=== PATIENT | female | born 1970 | race African-American/Black ===

== ENCOUNTER 2018-11-09 18:05 | Inpatient (IN) | payer OTHER ==
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
[2018-11-09] MEDS ORDERED: diphenhydrAMINE HCL 50 MG CAPSULE PO PRN (19:55)
[2018-11-09] MEDS ORDERED: MAG HYDROX/AL HYDROX/SIMETH 30 ML UNIT-DOSE CUP PO PRN (19:56)
[2018-11-09] MEDS ORDERED: MAGNESIUM CITRATE 300 ML BOTTLE PO PRN (19:56)
[2018-11-09] MEDS ORDERED: ACETAMINOPHEN 325 MG TABLET (FP) PO PRN (19:56)
[2018-11-09] MEDS ORDERED: hydrOXYzine PAMOATE 25 MG CAPSULE (FP) PO PRN (19:56)
[2018-11-09] MEDS ORDERED: MAGNESIUM HYDROX 2400MG/30ML ORAL SUSPENSION 30 ML CUP PO PRN (19:56)
[2018-11-09] MEDS ORDERED: chlordiazePOXIDE HCL 25 MG CAPSULE PO PRN (19:56)
[2018-11-09] MEDS ORDERED: BISMUTH SUBSALICYLATE 524 MG/30 ML UD PO PRN (19:56)
[2018-11-09] MEDS ORDERED: MENTHOL/PHENOL 1 EACH UD MM PRN (19:56)
[2018-11-09] MEDS ORDERED: cloNIDine HCL 0.1 MG TABLET PO ONE (20:30)
[2018-11-09] MEDS: IBUPROFEN 400 MG TABLET (FP) PO PRN (21:13)
[2018-11-09] MEDS ORDERED: hydrOXYzine PAMOATE 50 MG CAPSULE (FP) PO PRN (21:30)
[2018-11-09] MEDS: LIDOCAINE PATCH REMOVAL MC SCH (21:40)
[2018-11-09] MEDS ORDERED: MELATONIN 5 MG TABLETS PO PRN (22:00)
[2018-11-09] MEDS: chlordiazePOXIDE HCL 25 MG CAPSULE PO SCH (22:46)
[2018-11-09] MEDS: THIAMINE HCL 100 MG TABLET (FP) PO SCH (22:49)
[2018-11-10] MEDS: METHOCARBAMOL 500 MG TABLET PO PRN ×2 (03:05→22:35)
[2018-11-10] MEDS: chlordiazePOXIDE HCL 25 MG CAPSULE PO SCH ×4 (05:52→22:34)
[2018-11-10] MEDS: PRENATAL VITAMINS W/ FOLIC ACID TABLET (FP) PO SCH (10:21)
[2018-11-10] MEDS: LIDOCAINE 5% TOPICAL PATCH TP SCH (10:21)
[2018-11-10] MEDS: NICOTINE POLACRILEX 2 MG GUM BUC PRN (10:21)
[2018-11-10] MEDS: NICOTINE 14 MG/24 HOURS TOPICAL PATCH TD SCH (10:21)
[2018-11-10 10:26] LABS: HEMATOCRIT 35.7 % (32.4-45.2); HEMOGLOBIN 12.5 GM/dL (10.7-15.3); MCH 31.5 pg (25.7-33.7); MCHC 34.9 g/dl (32.0-36.0); MEAN CELL VOLUME 90.2 fl (80-96); MEAN PLT VOLUME 8.7 fl (7.5-11.1); PLATELET COUNT 242 K/MM3 (134-434); RBC 3.95 M/mm3 (3.60-5.2); RDW 13.6 % (11.6-15.6); WHITE BLOOD COUNT 5.9 K/mm3 (4.0-10.0)
[2018-11-10 10:34] LABS: ALK PHOS 54 U/L (45-117); ANION GAP 8 MMOL/L (8-16); BILIRUBIN,TOTAL 0.9 mg/dL (0.2-1); BLOOD UREA NITROGEN 16 mg/dL (7-18); CALCIUM 8.3 mg/dL (8.5-10.1); CHLORIDE 103 mmol/L (98-107); CO2 28 mmol/L (21-32); CREATININE 0.8 mg/dL (0.55-1.3); GLUCOSE,RANDOM 109 mg/dL (74-106); POTASSIUM 3.8 mmol/L (3.5-5.1); SGOT/AST 31 U/L (15-37); SGPT/ALT 52 U/L (13-61); SODIUM 139 mmol/L (136-145)
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
--- NOTE | 2018-11-10 12:25 | EKG ---
Test Reason : Blood Pressure : / mmHG Vent. Rate : 090 BPM Atrial Rate : 090 BPM P-R Int : 128 ms QRS Dur : 092 ms QT Int : 376 ms P-R-T Axes : 068 055 051 degrees QTc Int : 459 ms NORMAL SINUS RHYTHM POSSIBLE LEFT ATRIAL ENLARGEMENT BORDERLINE ECG NO PREVIOUS ECGS AVAILABLE Confirmed by SOCRATES CASTANEDA, LISSETH ([id number]) on 11/10/2018 12:25:19 PM Referred By: Confirmed By:LISSETH CROWELL MD
--- NOTE | 2018-11-10 13:03 | PN ---
S CIWA - CIWA Score Nausea/Vomitin-No Nausea/No Vomiting Muscle Tremors: 3 Anxiety: 3 Agitation: 3 Paroxysmal Sweats: 3 Orientation: 0-Oriented Tacttile Disturbances: 0-None Auditory Disturbances: 0-None Visual Disturbances: 0-None Headache: 0-None Present CIWA-Ar Total Score: 12 S Progress Note (SOAP) Subjective: sweats chronic body aches interrupted sleep shakes Objective: 11/10/18 13:02 Vital Signs Temperature 97.8 F 11/10/18 09:40 Pulse Rate 111 H 11/10/18 09:40 Respiratory Rate 18 11/10/18 09:40 Blood Pressure 129/85 11/10/18 09:40 O2 Sat by Pulse Oximetry (%) Laboratory Tests 11/10/18 11/10/18 11/10/18 07:00 07:00 07:00 WBC 5.9 RBC 3.95 Hgb 12.5 Hct 35.7 MCV 90.2 MCH 31.5 MCHC 34.9 RDW 13.6 Plt Count 242 MPV 8.7 Sodium 139 Potassium 3.8 Chloride 103 Carbon Dioxide 28 Anion Gap 8 BUN 16 Creatinine 0.8 Creat Clearance w eGFR 76.56 Random Glucose 109 H Calcium 8.3 L Total Bilirubin 0.9 AST 31 ALT 52 Alkaline Phosphatase 54 Total Protein 7.0 Albumin 4.0 RPR Titer Nonreactive labs noted aaox3 ambulating with some difficulty will order wheelchair for assistance during her stay only no acute distress Assessment: 11/10/18 13:03 withdrawal sx Plan: continue detox increase fluids wheelchair ordered for assistance
[2018-11-10] MEDS: CITALOPRAM HYDROBROMIDE 20 MG TABLET (FP) PO SCH (14:14)
[2018-11-10] MEDS: IBUPROFEN 400 MG TABLET (FP) PO PRN (17:26)
[2018-11-10] MEDS: QUEtiapine FUMARATE 200 MG TABLET PO SCH (22:35)
[2018-11-10] MEDS: LIDOCAINE PATCH REMOVAL MC SCH (22:35)
[2018-11-10] MEDS: THIAMINE HCL 100 MG TABLET (FP) PO SCH (22:35)
[2018-11-11] MEDS: chlordiazePOXIDE HCL 25 MG CAPSULE PO SCH ×3 (05:18→16:48)
[2018-11-11] MEDS: CITALOPRAM HYDROBROMIDE 20 MG TABLET (FP) PO SCH (10:14)
[2018-11-11] MEDS: PRENATAL VITAMINS W/ FOLIC ACID TABLET (FP) PO SCH (10:14)
[2018-11-11] MEDS: LIDOCAINE 5% TOPICAL PATCH TP SCH (10:15)
[2018-11-11] MEDS: NICOTINE 14 MG/24 HOURS TOPICAL PATCH TD SCH (10:15)
[2018-11-11] MEDS: METHOCARBAMOL 500 MG TABLET PO PRN (16:48)
--- NOTE | 2018-11-11 17:50 | PN ---
S CIWA - CIWA Score Nausea/Vomitin-Mild Nausea/No Vomiting Muscle Tremors: 3 Anxiety: 3 Agitation: 2 Paroxysmal Sweats: 3 Orientation: 0-Oriented Tacttile Disturbances: 0-None Auditory Disturbances: 0-None Visual Disturbances: 0-None Headache: 0-None Present CIWA-Ar Total Score: 12 BHS Progress Note (SOAP) Subjective: sweats tingling in b/l hands Objective: 11/11/18 17:49 A & ox 3 in wheelchair for ambulation slight tremors noted no acute distress Vital Signs Temperature 99 F 11/11/18 17:40 Pulse Rate 77 11/11/18 17:40 Respiratory Rate 18 11/11/18 17:40 Blood Pressure 119/67 11/11/18 17:40 O2 Sat by Pulse Oximetry (%) Assessment: 11/11/18 17:49 withdrawal sx Plan: continue detox
[2018-11-11] MEDS: THIAMINE HCL 100 MG TABLET (FP) PO SCH (21:51)
[2018-11-11] MEDS: LIDOCAINE PATCH REMOVAL MC SCH (21:51)
[2018-11-11] MEDS: QUEtiapine FUMARATE 200 MG TABLET PO SCH (21:53)
[2018-11-11] MEDS: chlordiazePOXIDE HCL 10 MG CAPSULE PO SCH (22:05)
[2018-11-11] MEDS ORDERED: chlordiazePOXIDE HCL 10 MG CAPSULE PO PRN (23:00)
[2018-11-12] MEDS: chlordiazePOXIDE HCL 10 MG CAPSULE PO SCH ×4 (05:29→22:30)
[2018-11-12] MEDS: PRENATAL VITAMINS W/ FOLIC ACID TABLET (FP) PO SCH (10:09)
[2018-11-12] MEDS: NICOTINE 14 MG/24 HOURS TOPICAL PATCH TD SCH (10:09)
[2018-11-12] MEDS: CITALOPRAM HYDROBROMIDE 20 MG TABLET (FP) PO SCH (10:09)
[2018-11-12] MEDS: IBUPROFEN 400 MG TABLET (FP) PO PRN ×2 (10:11→17:45)
[2018-11-12] MEDS: METHOCARBAMOL 500 MG TABLET PO PRN ×2 (10:12→22:31)
[2018-11-12] MEDS: LIDOCAINE 5% TOPICAL PATCH TP SCH (11:37)
[2018-11-12] MEDS ORDERED: cloNIDine HCL 0.1 MG TABLET PO ONE (11:56)
[2018-11-12] MEDS ORDERED: hydrOXYzine PAMOATE 50 MG CAPSULE (FP) PO ONE (11:59)
[2018-11-12] MEDS: HYDROCORTISONE 0.5% TOPICAL CREAM 30 GM TUBE TP SCH ×2 (13:15→23:04)
--- NOTE | 2018-11-12 16:49 | PN ---
S Progress Note (SOAP) Subjective: Tingling in hands, itching, sweating, body ache Objective: 11/12/18 16:45 Last Vital Signs Temp Pulse Resp BP Pulse Ox 98.6 F 75 18 122/76 11/12/18 09:31 11/12/18 09:31 11/12/18 09:31 11/12/18 09:31 Laboratory Tests 11/10/18 11/10/18 11/10/18 07:00 07:00 07:00 WBC 5.9 RBC 3.95 Hgb 12.5 Hct 35.7 MCV 90.2 MCH 31.5 MCHC 34.9 RDW 13.6 Plt Count 242 MPV 8.7 Sodium 139 Potassium 3.8 Chloride 103 Carbon Dioxide 28 Anion Gap 8 BUN 16 Creatinine 0.8 Creat Clearance w eGFR 76.56 Random Glucose 109 H Calcium 8.3 L Total Bilirubin 0.9 AST 31 ALT 52 Alkaline Phosphatase 54 Total Protein 7.0 Albumin 4.0 Urine Color Urine Appearance Urine pH Ur Specific [place] Urine Protein Urine Glucose (UA) Urine Ketones Urine Blood Urine Nitrite Urine Bilirubin Urine Urobilinogen Ur Leukocyte Esterase Urine WBC (Auto) Urine RBC (Auto) Urine Casts (Auto) U Pathogenic Cast Auto U Epithel Cells (Auto) U Sm Round Cell (Auto) Urine Crystals (Auto) Urine Bacteria (Auto) Urine Yeast (Auto) RPR Titer Nonreactive 11/10/18 11:50 WBC RBC Hgb Hct MCV MCH MCHC RDW Plt Count MPV Sodium Potassium Chloride Carbon Dioxide Anion Gap BUN Creatinine Creat Clearance w eGFR Random Glucose Calcium Total Bilirubin AST ALT Alkaline Phosphatase Total Protein Albumin Urine Color Cancelled Urine Appearance Cancelled Urine pH Cancelled Ur Specific [place] Cancelled Urine Protein Cancelled Urine Glucose (UA) Cancelled Urine Ketones Cancelled Urine Blood Cancelled Urine Nitrite Cancelled Urine Bilirubin Cancelled Urine Urobilinogen Cancelled Ur Leukocyte Esterase Cancelled Urine WBC (Auto) Cancelled Urine RBC (Auto) Cancelled Urine Casts (Auto) Cancelled U Pathogenic Cast Auto Cancelled U Epithel Cells (Auto) Cancelled U Sm Round Cell (Auto) Cancelled Urine Crystals (Auto) Cancelled Urine Bacteria (Auto) Cancelled Urine Yeast (Auto) Cancelled RPR Titer Labs reviewed Assessment: 11/12/18 16:46 Withdrawal symptoms Plan: Continue detox Encouraged PO water hydration Ordered for clonidine and vistaril x 1 dose for tactile hallucination and then continue clonidine and vistaril prn Hydrocortisone cream bid for itching
[2018-11-12] MEDS ORDERED: cloNIDine HCL 0.1 MG TABLET PO PRN (21:00)
[2018-11-12] MEDS: QUEtiapine FUMARATE 200 MG TABLET PO SCH (22:30)
[2018-11-12] MEDS: THIAMINE HCL 100 MG TABLET (FP) PO SCH (22:30)
[2018-11-12] MEDS: LIDOCAINE PATCH REMOVAL MC SCH (23:04)
[2018-11-13] MEDS: ACETAMINOPHEN 325 MG TABLET (FP) PO PRN ×2 (06:03→12:31)
[2018-11-13] MEDS ORDERED: AZITHROMYCIN 250 MG TABLET PO ONE (07:11)
--- NOTE | 2018-11-13 07:15 | PN ---
[facility] Progress Note Note: SEEN FOR FEVER. CLIENT COMPALINS OF GENERALIZED BODY ACHES, SORE THROAT AND PRODUCTIVE COUGH WITH YELLOW EXPECTORANT SINCE ADMISSION. SHE ALSO COMPLAINS OF WEAKNESS. SHE REPORTS SHE IS HOMELESS. DENIES C.P., +INTERMITTENT SOB, +CHILLS, +FEVER. Vital Signs - 24 hr 11/12/18 11/12/18 11/13/18 17:56 22:00 00:30 Temperature 98.6 F 97.9 F Pulse Rate 82 98 H Respiratory 18 20 18 Rate Blood Pressure 126/64 149/79 11/13/18 11/13/18 11/13/18 03:30 06:00 06:05 Temperature 100.8 F H 102.2 F H Pulse Rate 97 H Respiratory 18 18 Rate Blood Pressure 122/78 11/13/18 09:29 Temperature 100.9 F H Pulse Rate 93 H Respiratory 20 Rate Blood Pressure 119/70 Laboratory Tests 11/10/18 11/10/18 11/10/18 07:00 07:00 07:00 WBC 5.9 RBC 3.95 Hgb 12.5 Hct 35.7 MCV 90.2 MCH 31.5 MCHC 34.9 RDW 13.6 Plt Count 242 MPV 8.7 Sodium 139 Potassium 3.8 Chloride 103 Carbon Dioxide 28 Anion Gap 8 BUN 16 Creatinine 0.8 Creat Clearance w eGFR 76.56 Random Glucose 109 H Calcium 8.3 L Total Bilirubin 0.9 AST 31 ALT 52 Alkaline Phosphatase 54 Total Protein 7.0 Albumin 4.0 Urine Color Urine Appearance Urine pH Ur Specific [place] Urine Protein Urine Glucose (UA) Urine Ketones Urine Blood Urine Nitrite Urine Bilirubin Urine Urobilinogen Ur Leukocyte Esterase Urine WBC (Auto) Urine RBC (Auto) Urine Casts (Auto) U Pathogenic Cast Auto U Epithel Cells (Auto) U Sm Round Cell (Auto) Urine Crystals (Auto) Urine Bacteria (Auto) Urine Yeast (Auto) RPR Titer Nonreactive 11/10/18 11:50 WBC RBC Hgb Hct MCV MCH MCHC RDW Plt Count MPV Sodium Potassium Chloride Carbon Dioxide Anion Gap BUN Creatinine Creat Clearance w eGFR Random Glucose Calcium Total Bilirubin AST ALT Alkaline Phosphatase Total Protein Albumin Urine Color Cancelled Urine Appearance Cancelled Urine pH Cancelled Ur Specific [place] Cancelled Urine Protein Cancelled Urine Glucose (UA) Cancelled Urine Ketones Cancelled Urine Blood Cancelled Urine Nitrite Cancelled Urine Bilirubin Cancelled Urine Urobilinogen Cancelled Ur Leukocyte Esterase Cancelled Urine WBC (Auto) Cancelled Urine RBC (Auto) Cancelled Urine Casts (Auto) Cancelled U Pathogenic Cast Auto Cancelled U Epithel Cells (Auto) Cancelled U Sm Round Cell (Auto) Cancelled Urine Crystals (Auto) Cancelled Urine Bacteria (Auto) Cancelled Urine Yeast (Auto) Cancelled RPR Titer SEEN LYING IN BED-ILL APPEARING. A/O X3 HEENT-PERRLA, EOMI ,MMM NO REDNESS OR EXUDATES NOTED TONSILS APPEAR NL NECK-SUPPLE + LAD CV- TACHY LUNGS- MILD DIFFUSE COARSE BREATH SOUNDS [id number] 95% SKIN- WARM AND MOIST, INTACT A- FEVER, GIVEN CLIENT IS HOMELESS WILL TREAT PROPHYLACTICALLY FOR CAP VS PHARYNGITIS P- Z- PACK PO HYDRATION TYLENOL/ MOTRIN FOR PAIN FEVER CONT TO MONITOR CLINICALLY FOR WORSENING SX'S WILL REORDER UA NOT SURE WHY INITIAL ORDER WAS CXL
[2018-11-13] MEDS ORDERED: ALBUTEROL SO4 8 GM HFA INHALER IH PRN (10:17)
[2018-11-13] MEDS: CITALOPRAM HYDROBROMIDE 20 MG TABLET (FP) PO SCH (10:27)
[2018-11-13] MEDS: LIDOCAINE 5% TOPICAL PATCH TP SCH (10:28)
[2018-11-13] MEDS: PRENATAL VITAMINS W/ FOLIC ACID TABLET (FP) PO SCH (10:28)
[2018-11-13] MEDS: NICOTINE POLACRILEX 2 MG GUM BUC PRN (10:28)
[2018-11-13] MEDS: chlordiazePOXIDE HCL 10 MG CAPSULE PO SCH ×2 (10:29→22:31)
[2018-11-13] MEDS: HYDROCORTISONE 0.5% TOPICAL CREAM 30 GM TUBE TP SCH ×2 (10:30→21:43)
[2018-11-13] MEDS: NICOTINE 14 MG/24 HOURS TOPICAL PATCH TD SCH (10:31)
[2018-11-13] MEDS ORDERED: ALBUTEROL SO4 8 GM HFA INHALER IH ONE (10:47)
--- NOTE | 2018-11-13 10:57 | PN ---
S Progress Note (SOAP) Subjective: cough sweats feverish Objective: 11/13/18 10:55 Vital Signs Temperature 100.9 F H 11/13/18 09:29 Pulse Rate 93 H 11/13/18 09:29 Respiratory Rate 20 11/13/18 09:29 Blood Pressure 119/70 11/13/18 09:29 O2 Sat by Pulse Oximetry (%) lungs assessed; +ronchi noted ABX ordered albuterol inh ordered tylenol prn Assessment: 11/13/18 10:56 mild withdrawal sx Plan: continue detox increase fluids continue with abx and albuterol treatment as ordered tylenol prn d/c in am
[2018-11-13] MEDS ORDERED: guaiFENesin 200 MG/10 ML 10 ML UNIT-DOSE CUPS PO PRN (10:58)
[2018-11-13] MEDS: IBUPROFEN 400 MG TABLET (FP) PO PRN (18:03)
--- NOTE | 2018-11-13 18:46 | PN ---
S Progress Note Note: 11/13/18 CXR = Bibasilar Infiltrates. Vital Signs 11/13/18 11/13/18 14:02 17:38 Temperature 102.4 F H 101.8 F H Pulse Rate 98 H 96 H Respiratory 20 20 Rate Blood Pressure 134/70 133/73 Plan: Ibuprofen or Tylenol for temp > 100.6 Albuterol neb q4h x 3 doses then prn Increase oral water : 2 pitchers dialy Guaifenesin q4 h x 2 days Continue Zithromax Vital signs q4h w/ O2 sat.
[2018-11-13] MEDS: guaiFENesin 200 MG/10 ML 10 ML UNIT-DOSE CUPS PO SCH ×2 (20:58→21:41)
[2018-11-13] MEDS: ALBUTEROL SO4 0.083% IH SOL 2.5 MG/3 ML VIAL.NEB. NEB SCH (21:11)
[2018-11-13] MEDS: THIAMINE HCL 100 MG TABLET (FP) PO SCH (21:40)
[2018-11-13] MEDS: QUEtiapine FUMARATE 200 MG TABLET PO SCH (21:40)
[2018-11-13] MEDS: LIDOCAINE PATCH REMOVAL MC SCH (21:43)
[2018-11-14] MEDS: guaiFENesin 200 MG/10 ML 10 ML UNIT-DOSE CUPS PO SCH ×2 (04:41→06:42)
[2018-11-14] MEDS: ALBUTEROL SO4 0.083% IH SOL 2.5 MG/3 ML VIAL.NEB. NEB SCH (04:41)
[2018-11-14] MEDS: IBUPROFEN 400 MG TABLET (FP) PO PRN (05:48)
[2018-11-14] MEDS ORDERED: AZITHROMYCIN 250 MG TABLET PO SCH (07:00)
[2018-11-14 08:02] VITALS: BP 140/93; PULSE 95; TEMP 100.4
--- NOTE | 2018-11-14 09:42 | PN ---
[facility] Progress Note Note: pt last temp 100.4. pt appears weak and sickly. pt states she doesn't feel good. Pt has been ordered ABX, tylenol however pt temp continue to stay high. Report given to Dr. Harding from [place] ED for evaluation. Pt has completed detox and discharged today. If she is cleared form ED; pt may return to continue her aftercare treatment in rehab (if bed is available). Pt has been made aware.
--- NOTE | 2018-11-14 09:47 | DS ---
[facility] Detox Discharge Summary Admission Date: 11/09/18 Discharge Date: 11/14/18 - History Present History: Alcohol Dependence, Cannabis Dependence, Cocaine Dependence - Physical Exam Results Vital Signs: Vital Signs Temperature 100.4 F H 11/14/18 08:02 Pulse Rate 95 H 11/14/18 08:02 Respiratory Rate 20 11/14/18 08:02 Blood Pressure 140/93 11/14/18 08:02 O2 Sat by Pulse Oximetry (%) - Treatment Hospital Course: Detox Protocol Followed, Detoxed Safely, Responded well, Discharged Condition Good, Rehab Referral Accepted - Medication Discharge Medications: Ambulatory Orders Chlorpromazine [Thorazine -] 50 mg PO BID PRN 11/09/18 Citalopram Hydrobromide [Celexa -] 20 mg PO DAILY 11/09/18 Diphenhydramine [Benadryl -] 50 mg PO TID PRN 11/09/18 Haloperidol [Haldol -] 5 mg PO TID PRN 11/09/18 Quetiapine Fumarate [Seroquel] 100 tab PO HS 11/09/18 Trazodone HCl 150 mg PO HS 11/09/18 hydrOXYzine HCL 50 mg PO TID PRN 11/09/18 - Diagnosis (1) Alcohol dependence with uncomplicated withdrawal Status: Chronic (2) Cannabis dependence Status: Chronic (3) Cocaine dependence Status: Chronic Qualifiers: Substance use status: uncomplicated Qualified Code(s): F14.20 - Cocaine dependence, uncomplicated (4) Substance induced mood disorder Status: Acute (5) Substance-induced sleep disorder Status: Acute (6) Arthritis Status: Chronic (7) Bipolar II disorder Status: Chronic (8) GERD (gastroesophageal reflux disease) Status: Chronic (9) Nicotine dependence Status: Chronic Qualifiers: Nicotine product type: cigarettes Substance use status: uncomplicated Qualified Code(s): F17.210 - Nicotine dependence, cigarettes, uncomplicated (10) Osteoarthritis of both knees Status: Chronic Qualifiers: Osteoarthritis type: unspecified Qualified Code(s): M17.0 - Bilateral primary osteoarthritis of knee (11) Use of cane as ambulatory aid Status: Chronic (12) Psychiatric disorder Status: Suspected - AMA Did Patient Leave Against Medical Advice: No (sent to ED for eval; then rehab)
== END 2018-11-14 09:21 | disposition short-term general hospital (02) | DRG 774 ==
LOC: YASAS 18:05 → Y6N 20:26
PROVIDERS: ADMIT Surgery; ATTEND Surgery
PROC: HZ2ZZZZ Detoxification Services for Substance Abuse Treatment (ICD-10-PCS; principal; 2018-11-09)
DX: F10.230 Alcohol dependence with withdrawal, uncomplicated (principal); F14.20 Cocaine dependence, uncomplicated; F12.20 Cannabis dependence, uncomplicated; F17.213 Nicotine dependence, cigarettes, with withdrawal; F19.24 Other psychoactive substance dependence with psychoactive substance-induced mood disorder; F19.282 Other psychoactive substance dependence with psychoactive substance-induced sleep disorder; F31.81 Bipolar II disorder; F99 Mental disorder, not otherwise specified; F41.9 Anxiety disorder, unspecified; K21.9 Gastro-esophageal reflux disease without esophagitis; M12.9 Arthropathy, unspecified; M17.0 Bilateral primary osteoarthritis of knee; R26.89 Other abnormalities of gait and mobility; Z99.89 Dependence on other enabling machines and devices; Z91.5 Personal history of self-harm; Z59.0 Homelessness
CPT/HCPCS: 36415; 71046-TC-FY; 80053; 81003; 85027; 86593; 93005; 93010; 94640; J0735

== ENCOUNTER 2018-11-14 09:35 | Inpatient (IN) | payer OTHER ==
--- NOTE | 2018-11-14 10:19 | PDOC ---
History of Present Illness - General Chief Complaint: SIRS, Suspected/Possible Stated Complaint: DIFFICULTY BREATHING Time Seen by Provider: 11/14/18 10:01 History Source: Patient Exam Limitations: No Limitations - History of Present Illness Initial Comments: Pt is a 47 yo F, with PMH of polysubstance use (intranasal cocaine, nicotine, THC, alcohol), bipolar, and SBO, who is presenting via EMS from [facility] rehab with complaints of non-productive cough, frontal head pressure, fever (Tmax 101) , and malaise x4 days. Pt was admitted to the detox facility on 11/10, and consumed a large quantity of alcohol (drinking 1/2 gallon vodka/day) on 11/09 to the point that she had LOC. Her symptoms started 2 days later on 11/11, and was treated at [facility] with 250 mg PO azithromycin for 2 days for b/l lower lobe infiltrates on x-ray. Pt was sent to the ER today for continued fever (100.4), although her last dose of tylenol as at noon yesterday, and her last dose of motrin was at 530 this AM. Pt is supposed to be discharged to rehab today from [facility], as she finished her detox today. Pt denies any headache, vision changes, syncope, chest pain, palpitations, SOB, nausea/vomiting, abdominal pain, urinary symptoms, diarrhea/constipation, or leg swelling. Social: Pt smokes 1/2 ppd, substance use as above. Pt denies any recent travel or sick contacts. Surgical: no relevant history. Family: no relevant history. 11/14/18 11:39 Past History - Travel Traveled outside of the country in the last 30 days: No Close contact w/someone who was outside of country & ill: No - Past Medical History Allergies/Adverse Reactions: Allergies Allergy/AdvReac Type Severity Reaction Status Date / Time No Known Allergies Allergy Verified 11/14/18 10:00 Home Medications: Ambulatory Orders Chlorpromazine [Thorazine -] 50 mg PO BID PRN 11/09/18 Citalopram Hydrobromide [Celexa -] 20 mg PO DAILY 11/09/18 Diphenhydramine [Benadryl -] 50 mg PO TID PRN 11/09/18 Haloperidol [Haldol -] 5 mg PO TID PRN 11/09/18 Quetiapine Fumarate [Seroquel] 100 tab PO HS 11/09/18 Trazodone HCl 150 mg PO HS 11/09/18 hydrOXYzine HCL 50 mg PO TID PRN 11/09/18 Anemia: No Asthma: No Cancer: No Cardiac Disorders: No CVA: No COPD: No CHF: No Dementia: No Diabetes: No GI Disorders: Yes (GERD ) Disorders: No HTN: No Hypercholesterolemia: No Kidney Stones: No Liver Disease: No Seizures: No Thyroid Disease: No - Surgical History Abdominal Surgery: Yes (bowel obstruction sx 2003) Appendectomy: No Cardiac Surgery: No Cholecystectomy: No Lung Surgery: No Neurologic Surgery: No Orthopedic Surgery: No - Reproductive History PID: No - Suicide/Smoking/Psychosocial Hx Smoking History: Current every day smoker Have you smoked in the past 12 months: Yes Number of Cigarettes Smoked Daily: 10 If you are a former smoker, when did you quit?: 15 years ago Information on smoking cessation initiated: No 'Breaking Loose' booklet given: 11/09/18 Hx Alcohol Use: Yes Drug/Substance Use Hx: Yes Substance Use Type: Alcohol, Cocaine, Marijuana Hx Substance Use Treatment: Yes (detox [facility] 2011) Review of Systems - Review of Systems Able to Perform ROS?: Yes Is the patient limited Macedonian proficient: No Constitutional: Yes: Chills, Fever, Malaise, Weight Stable. No: Diaphoresis, Loss of Appetite, Night Sweats, Weakness HEENTM: Yes: Nose Congestion. No: Eye Pain, Blurred Vision, Double Vision, Throat Pain, Throat Swelling, Difficulty Swallowing Respiratory: Yes: Cough. No: Orthopnea, Shortness of Breath, Wheezing, Productive cough, Hemoptysis Cardiac (ROS): Yes: Chest Tightness. No: Chest Pain, Edema, Irregular Heart Rate, Lightheadedness, Palpitations, Syncope ABD/GI: No: Constipated, Diarrhea, Nausea, Poor Appetite, Poor Fluid Intake, Vomiting : No: Burning, Dysuria, Pain, Urgency Musculoskeletal: No: Back Pain, Joint Pain, Muscle Weakness Integumentary: No: Rash Neurological: No: Headache, Numbness, Paresthesia, Weakness Psychiatric: No: Sleep Pattern Change, Change in Appetite Endocrine: No: Increased Urine, Change in Weight Hematologic/Lymphatic: No: Anemia, Blood Clots, Easy Bleeding, Easy Bruising All Other Systems: Reviewed and Negative *Physical Exam - Vital Signs Last Vital Signs Temp Pulse Resp BP Pulse Ox 98.6 F 89 18 117/67 96 11/14/18 10:01 11/14/18 10:01 11/14/18 10:01 11/14/18 10:01 11/14/18 10:01 - Physical Exam Comments: Vitals stable, pt afebrile on presentation. Pt in NAD, normal body habitus. PE showed pt alert and oriented. 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 Head normocephalic, atraumatic. Eyes PERRLA, EOMI. Oropharynx without erythema or exudates, no LAD b/l. No nasal congestion, hearing intact. Clear heart sounds, S1/S2, no JVD, b/l pedal edema, or heart murmur. Lung sounds diminished at b/l posterior bases with mild crackles. Poor inspiratory effort and pt tachypneic after long sentences. No respiratory distress, wheezes, or accessory muscle use. No abdominal or CVA tenderness to palpation, no rebound, no guarding. Abdomen soft, non-distended, and with normoactive bowel sounds. Skin without jaundice or rash. 11/14/18 11:13 ED Treatment Course - LABORATORY CBC & Chemistry Diagram: 11/14/18 11:08 11/14/18 11:08 Medical Decision Making - Medical Decision Making Pt was seen at bedside, also will be seen by attending Dr. Parks. Pt presenting via EMS from [facility] rehab with complaints of non-productive cough , frontal head pressure, fever (Tmax 101), and malaise x4 days. Pt was admitted to the detox facility on 11/10, and consumed a large quantity of alcohol ( drinking 1/2 gallon vodka/day) on 11/09 to the point that she had LOC. Her symptoms started 2 days later on 11/11, and was treated at [facility] with 250 mg PO azithromycin for 2 days for b/l lower lobe infiltrates on x-ray. Pt was sent to the ER today for continued fever (100.4), although her last dose of tylenol as at noon yesterday, and her last dose of motrin was at 530 this AM. Pt is supposed to be discharged to rehab today from [facility], as she finished her detox today. Pt denies any headache, vision changes, syncope, chest pain, palpitations, SOB, nausea/vomiting, abdominal pain, urinary symptoms, diarrhea/constipation, or leg swelling. Considering worsening pneumonia (need for increased coverage, aspiration), vs overlying viral URI/pneumonia. Less concern for non-infectious causes (acute HF , ACS) as pt has had recent fever and cough. Ordered work-up including CBC, CMP, rapid influenza, serum , blood cultures, repeat chest x-ray PA and lateral. Provided albuterol nebulizer, 650 mg PO tylenol, and 1 L IV NS for improvement of likely dehydration (orthostasis with position changes this AM) and fever. Will continue to reassess pt and monitor for symptomatic improvement. 11/14/18 10:45 11/14/18 11:26 CBC: WBC 3.8 -- pt not immunocompromised other than alcohol use CMP WNL Serum test negative Influenza A positive Chest x-ray showed progressive infiltrate in the R lung base with new atelectasis in the L midlung field. Pt started on 500 mg IV azithromycin, 1.25 g IV vanc, and 3.375 g IV zosyn for hospital acquired pneumonia (pt was in [facility] psych unit less than a month ago). Pt admitted to hospitalist team (Dr. Campoverde). Pt in isolation room, pending bed upstairs. 11/14/18 12:58 *DC/Admit/Observation/Transfer Diagnosis at time of Disposition: Influenza A, Alcohol dependence with uncomplicated withdrawal, Bipolar II disorder Pneumonia Qualifiers: Pneumonia type: due to unspecified organism Laterality: bilateral Lung location : lower lobe of lung Qualified Code(s): J18.1 - Lobar pneumonia, unspecified organism Cocaine dependence Qualifiers: Substance use status: uncomplicated Qualified Code(s): F14.20 - Cocaine dependence, uncomplicated Nicotine dependence Qualifiers: Nicotine product type: cigarettes Substance use status: uncomplicated Qualified Code(s): F17.210 - Nicotine dependence, cigarettes, uncomplicated - Discharge Dispostion Condition at time of disposition: Stable Decision to Admit order: Yes - Referrals - Patient Instructions - Post Discharge Activity
[2018-11-14] MEDS ORDERED: ACETAMINOPHEN 325 MG TABLET (FP) PO ONE (10:45)
[2018-11-14] MEDS ORDERED: ACETAMINOPHEN 325 MG TABLET (FP) ONE ×2 (10:51→17:31)
[2018-11-14] MEDS ORDERED: SODIUM CHLORIDE 1,000 ML IV STA (10:51)
[2018-11-14] MEDS ORDERED: ALBUTEROL SO4 0.083% IH SOL 2.5 MG/3 ML VIAL.NEB. NEB ONE ×2 (10:52→11:09)
--- NOTE | 2018-11-14 11:03 | PDOC ---
Attending Attestation - Resident Resident Name: Neida Zimmerman - ED Attending Attestation I have performed the following: I have examined & evaluated the patient, The case was reviewed & discussed with the resident, I agree w/resident's findings & plan - HPI HPI: 11/14/18 11:02 47y/o F h/o F h/o polysubstance abuse just completed detox at [facility] today, admitted on 11/09 after etoh binge which ended in her almost passing out. Diagnosed with b/l basilar pna on 11/10 and started on oral azithro, sent now after detox for medical evaluation as she continues to complain of dyspnea, b/l lung pain, and generalized weakness. tmax 102.4 on 11/13, 100.4 last night - Physicial Exam PE: 11/14/18 11:04 Vitals are within normal limits, O2 sat 96% on room air, afebrile here Alert, conversant, no acute distress, hemodynamically stable Bilateral decreased breath sounds and crackles, no wheezing, no accessory muscle use No edema or calf tenderness - Medical Decision Making 11/14/18 11:05 47-year-old female with extensive smoking history but no diagnosis of asthma or COPD or CHF, polysubstance abuse with recent alcohol binge and near syncope now status post detox and diagnosed with bibasilar infiltrate being treated possibly incompletely with oral azithromycin given persistent symptoms. No evidence of sepsis at this time, rule out progression or persistent pneumonia, possibly aspiration source. Labs including blood cultures Repeat chest x-ray, EKG Consider expanding antibiotic coverage Likely admission Heart Score/ECG Review #1 ECG reviewed & interpreted by me at: 13:56 General ECG Interpretation: Sinus Rhythm, Normal Rate (77), Normal Intervals ( qtc 459), No acute ischemic changes
[2018-11-14 11:22] LABS: BASO % 0.7 % (0-2.0); EOS % 2.8 % (0-4.5); HEMATOCRIT 32.7 % (32.4-45.2); HEMOGLOBIN 11.5 GM/dL (10.7-15.3); LYMPH % 14.5 % (8-40); MCHC 35.2 g/dl (32.0-36.0); MEAN CELL VOLUME 90.9 fl (80-96); MEAN PLT VOLUME 8.1 fl (7.5-11.1); MONO % 5.9 % (3.8-10.2); NEUT % 76.1 % (42.8-82.8); PLATELET COUNT 187 K/MM3 (134-434); RDW 13.2 % (11.6-15.6); WHITE BLOOD COUNT 3.8 K/mm3 (4.0-10.0)
[2018-11-14 11:47] LABS: ALK PHOS 41 U/L (45-117); ANION GAP 6 MMOL/L (8-16); BILIRUBIN,TOTAL 0.2 mg/dL (0.2-1); BLOOD UREA NITROGEN 10 mg/dL (7-18); CALCIUM 7.7 mg/dL (8.5-10.1); CHLORIDE 106 mmol/L (98-107); CO2 28 mmol/L (21-32); CREATININE 0.6 mg/dL (0.55-1.3); GLUCOSE,RANDOM 108 mg/dL (74-106); POTASSIUM 4.1 mmol/L (3.5-5.1); SGOT/AST 38 U/L (15-37); SGPT/ALT 38 U/L (13-61); SODIUM 140 mmol/L (136-145)
[2018-11-14] MEDS ORDERED: PIPERACILLIN/TAZOB 3.375 GM 3.375 GM in DEXTROSE 5%-WATER - 50 ML IVPB ONE (12:40)
[2018-11-14] MEDS ORDERED: AZITHROMYCIN IVPB 500 MG in DEXTROSE 5%-WATER - 250 ML IVPB ONE (12:40)
[2018-11-14] MEDS ORDERED: VANCOMYCIN 1,250 MG in DEXTROSE 5%-WATER - 250 ML IVPB ONE (12:40)
[2018-11-14] MEDS ORDERED: ALBUTEROL SO4 0.083% IH SOL 2.5 MG/3 ML VIAL.NEB. NEB PRN (13:27)
[2018-11-14] MEDS ORDERED: PIPERACILLIN/TAZOB 3.375 GM 3.375 GM/50 ML BAG IVPB ONE (13:27)
[2018-11-14] MEDS ORDERED: AZITHROMYCIN IVPB 500 MG/250 ML BAG IVPB ONE (13:27)
[2018-11-14] MEDS ORDERED: ONDANSETRON 4 MG/2 ML VIAL IVPUSH PRN (13:27)
--- NOTE | 2018-11-14 13:27 | HP ---
CHIEF COMPLAINT: Fever HISTORY OF PRESENT ILLNESS: This is a 47 year old woman who comes to the ED from [facility] for evaluation of fevers. The patient reports she was admitted to [facility] for inpatient psychiatric treatment on October 12. At the time, she was suicidal. She improved and was discharged on November 07. After discharge, she began drinking and on November 09, she went to [facility] for detox which she completed today. Yesterday, she complained of cough with yellow sputum, body aches, and sore throat. She had fever up to 102.4. Chest x-ray showed bibasilar infiltrates. She was started on Zithromax. This morning, she had a temp of 100.4 , and she continued to feel sick, so she was sent to the ED for evaluation. She denies SOB, CP, palpitations, abdominal pain, nausea, vomiting, diarrhea. PAST MEDICAL HISTORY Bipolar disorder Osteoarthritis Polysubstance abuse PAST SURGICAL HISTORY Surgery for bowel obstruction Social History: Smokin/2 PPD x 34 years Alcohol: "Too much" Drugs: Marijuana, cocaine Recent Travel: No Family History: Non-contributory Allergies No Known Allergies Allergy (Verified 11/14/18 10:00) Home Medications Medication Instructions Recorded Chlorpromazine [Thorazine -] 50 mg PO BID PRN 11/09/18 Citalopram Hydrobromide [Celexa -] 20 mg PO DAILY 11/09/18 Diphenhydramine [Benadryl -] 50 mg PO TID PRN 11/09/18 Haloperidol [Haldol -] 5 mg PO TID PRN 11/09/18 Quetiapine Fumarate [Seroquel] 100 tab PO HS 11/09/18 Trazodone HCl 150 mg PO HS 11/09/18 hydrOXYzine HCL 50 mg PO TID PRN 11/09/18 REVIEW OF SYSTEMS CONSTITUTIONAL: Present: fever, chills, malaise. Absent: diaphoresis, generalized weakness, loss of appetite, weight change HEENT: Absent: rhinorrhea, nasal congestion, throat pain, throat swelling, difficulty swallowing, mouth swelling, ear pain, eye pain, visual changes CARDIOVASCULAR: Absent: chest pain, syncope, palpitations, lightheadedness, peripheral edema RESPIRATORY: Present: cough. Absent: shortness of breath, dyspnea with exertion , orthopnea, wheezing, stridor, hemoptysis GASTROINTESTINAL: Absent: abdominal pain, abdominal distension, nausea, vomiting , diarrhea, constipation, melena, hematochezia GENITOURINARY: Absent: dysuria, frequency, urgency, hesitancy, hematuria, flank pain MUSCULOSKELETAL: Present: myalgias, arthralgias. Absent: arthralgia, joint swelling, back pain, neck pain SKIN: Absent: rash, itching, pallor HEMATOLOGIC/IMMUNOLOGIC: Absent: easy bleeding, easy bruising, lymphadenopathy, frequent infections ENDOCRINE: Absent: unexplained weight gain, unexplained weight loss, heat intolerance, cold intolerance NEUROLOGIC: Absent: headache, focal weakness, paresthesias, dizziness, unsteady gait, seizure, mental status changes, bladder or bowel incontinence PSYCHIATRIC: Present: anxiety. Absent: depression, suicidal or homicidal ideation, hallucinations. PHYSICAL EXAMINATION Vital Signs - 24 hr 11/14/18 10:01 Temperature 98.6 F Pulse Rate 89 Respiratory 18 Rate Blood Pressure 117/67 O2 Sat by Pulse 96 Oximetry (%) GENERAL: Awake, alert, and fully oriented, in no acute distress. HEAD: Normal with no signs of trauma. EYES: Pupils equal, round and reactive to light, extraocular movements intact, sclerae anicteric, conjunctivae clear. EARS, NOSE, THROAT: Ears normal, nares patent, oropharynx clear without exudates. Moist mucous membranes. NECK: Normal range of motion, supple without lymphadenopathy, JVD, or masses. LUNGS: Breath sounds equal, Crackles at both bases, left mid lung. No accessory muscle use. HEART: Regular rate and rhythm, normal S1 and S2 without murmur, rub or gallop. ABDOMEN: Obese, soft, nontender, not distended, normoactive bowel sounds, no guarding, no rebound, no masses. No hepatomegaly or splenomegaly. MUSCULOSKELETAL: Normal range of motion at all joints. No bony deformities or tenderness. No CVA tenderness. UPPER EXTREMITIES: 2+ pulses, warm, well-perfused. No cyanosis. No clubbing. No peripheral edema. LOWER EXTREMITIES: 2+ pulses, warm, well-perfused. No calf tenderness. No peripheral edema. NEUROLOGICAL: Cranial nerves II-XII intact. Normal speech. Gait not observed. PSYCHIATRIC: Cooperative. Good eye contact. Appropriate mood and affect. SKIN: Warm, dry, normal turgor, no rashes or lesions noted, normal capillary refill. Laboratory Results - last 24 hr 11/14/18 11/14/18 11/14/18 11:08 11:08 11:08 WBC 3.8 L RBC 3.60 Hgb 11.5 Hct 32.7 MCV 90.9 MCH 32.0 MCHC 35.2 RDW 13.2 Plt Count 187 D MPV 8.1 Absolute Neuts (auto) 2.9 Neutrophils % 76.1 Lymphocytes % 14.5 Monocytes % 5.9 Eosinophils % 2.8 Basophils % 0.7 Nucleated RBC % 0 Sodium 140 Potassium 4.1 Chloride 106 Carbon Dioxide 28 Anion Gap 6 L BUN 10 Creatinine 0.6 Creat Clearance w eGFR 106.70 Random Glucose 108 H Calcium 7.7 L Total Bilirubin 0.2 AST 38 H ALT 38 Alkaline Phosphatase 41 L Total Protein 6.0 L Albumin 3.0 L Serum , Qual Negative Influenza A (Rapid) Influenza B (Rapid) 11/14/18 11:19 WBC RBC Hgb Hct MCV MCH MCHC RDW Plt Count MPV Absolute Neuts (auto) Neutrophils % Lymphocytes % Monocytes % Eosinophils % Basophils % Nucleated RBC % Sodium Potassium Chloride Carbon Dioxide Anion Gap BUN Creatinine Creat Clearance w eGFR Random Glucose Calcium Total Bilirubin AST ALT Alkaline Phosphatase Total Protein Albumin Serum , Qual Influenza A (Rapid) Positive A Influenza B (Rapid) Negative ASSESSMENT/PLAN: This is a 47 year old woman with a history of bipolar disorder, polysubstance abuse, OA, recent psychiatric admission who presented to the ED from [facility] because of fever, cough, chills, and myalgias. 1. Sepsis (WBC 3.8, HR 95) secondary to pneumonia, influenza A - Zosyn, vancomycin, Zithromax given in ER - Start ceftriaxone, Zithromax, Tamiflu - Oxygen to maintain saturation >90% - Albuterol nebulizer as needed - Check urine Legionella, pneumococcus Ag - Sputum culture 2. Bipolar disorder - Continue Celexa, Seroquel, Trazodone - Continue Hydroxyzine as needed for anxiety - Continue Haldol as needed for agitation 3. Alcohol dependence - Completed detox - Interested in rehab once she is ready for discharge 4. Nicotine dependence - Start nicotine replacement - patient requesting nicotine gum 5. Obesity with BMI 31.1 Visit type - Emergency Visit Emergency Visit: Yes ED Registration Date: 11/14/18 Care time: The patient presented to the Emergency Department on the above date and was hospitalized for further evaluation of their emergent condition. - New Patient This patient is new to me today: Yes Date on this admission: 11/14/18 - Critical Care Critical Care patient: No
[2018-11-14] MEDS ORDERED: NICOTINE POLACRILEX 2 MG GUM BUC PRN (13:31)
[2018-11-14] MEDS ORDERED: HALOPERIDOL 5 MG TABLET (FP) PO PRN (13:32)
[2018-11-14] MEDS: SODIUM CHLORIDE 1,000 ML IV SCH (13:39)
[2018-11-14 14:04] LABS: EPI CELLS 3.6 /HPF (0-5); PH,URINE 6.5 (5.0-8.0); URINE APPEARANCE CLEAR; URINE BACTERIA 67.4 /hpf (NEGATIVE); URINE BILIRUBIN NEGATIVE (NEGATIVE); URINE CASTS 2 /hpf (0-8); URINE COLOR YELLOW; URINE GLUCOSE (UA) NEGATIVE (NEGATIVE); URINE KETONE NEGATIVE (NEGATIVE); URINE LEUK ESTERASE 2+ (NEGATIVE); URINE NITRITE NEGATIVE (NEGATIVE); URINE PROTEIN NEGATIVE (NEGATIVE); URINE RBC 3 /hpf (0-4); URINE WBC 19 /hpf (0-5)
--- NOTE | 2018-11-14 14:13 | PN ---
Progress Note (short form) - Note Progress Note: ID consult dictated imp/reccd 47 yo female with bipolar disorder, poly substance use with 2 days of cough, chills nonproductive cough HIV negative completed detox etoh/marijuana/cocaine no history of tb, hep b, hep c +cigarette +influenza A +right basilar infiltrate droplet isolation tamiflu received zosyn/zith/vancomycin in ed urinary antigens sputum culture rocephin/zithromax-check ekg before continuing zithromax continue vancomycin until blood cultures are back Problem List - Problems (1) Influenza A Code(s): J10.1 - FLU DUE TO OTH IDENT INFLUENZA VIRUS W OTH RESP MANIFEST (2) Pneumonia Code(s): J18.9 - PNEUMONIA, UNSPECIFIED ORGANISM Qualifiers: Pneumonia type: due to unspecified organism Laterality: bilateral Lung location: lower lobe of lung Qualified Code(s): J18.1 - Lobar pneumonia, unspecified organism (3) Polysubstance abuse Code(s): F19.10 - OTHER PSYCHOACTIVE SUBSTANCE ABUSE, UNCOMPLICATED (4) Bipolar II disorder Code(s): F31.81 - BIPOLAR II DISORDER
[2018-11-14] MEDS ORDERED: OSELTAMIVIR PHOSPHATE 75 MG CAPSULE PO SCH (14:22)
[2018-11-14] MEDS ORDERED: METHOCARBAMOL 500 MG TABLET ONE (17:19)
[2018-11-14] MEDS: ACETAMINOPHEN 325 MG TABLET (FP) PO PRN ×2 (17:34→22:42)
[2018-11-14] MEDS: hydrOXYzine PAMOATE 50 MG CAPSULE (FP) PO PRN (17:34)
[2018-11-14] MEDS: METHOCARBAMOL 500 MG TABLET PO PRN (17:34)
--- NOTE | 2018-11-14 19:39 | CONS ---
INFECTIOUS DISEASE CONSULTATION DATE OF CONSULTATION: 11/14/2018 This is a 47-year-old woman who was admitted from [facility] from the detoxification program. She reports that originally for the month of October, she was in inpatient psychiatric care at [facility]. She was discharged on November 07, and she relapsed and started drinking alcohol. She drinks vodka and using marijuana and cocaine. She does not inject drugs. So, she presented with these complaints to [facility] on the and was admitted for detoxification there. After admission there, she reports she was well for the first several days, and then, on the , she started having fever and cough. Fever was as high as 102.4 documented there. They gave her a dose of Zithromax and sent her to the hospital for further evaluation. She had a chest x-ray done on the at the [facility] that was read as bibasilar infiltrates. The x-ray was repeated in our ER and consistent with a progressive right lower lobe infiltrate. She was tested for influenza and was found to be influenza A positive. The patient reports that she is HIV negative. She has a nonproductive cough. There is no hemoptysis. She has no prior history of tuberculosis, hepatitis B or C, and she has been tested multiple times for HIV and is HIV negative. ALLERGIES: She has no known drug allergies. PAST MEDICAL HISTORY: Notable for bipolar disorder, osteoarthritis, and substance use. SURGICAL HISTORY: Notable for C-sections. She had surgery for bowel obstruction many years ago. SOCIAL HISTORY: She is an active cigarette smoker. She drinks vodka, and she smokes marijuana and cocaine. No history of injection drug use. There is no history of any travel. FAMILY HISTORY: Noncontributory. MEDICATIONS: Include Thorazine, Celexa, Benadryl, Haldol, Seroquel, trazadone, and hydroxyzine. REVIEW OF SYSTEMS: Notable for the cough and she has some myalgias. Otherwise, she feels okay. She denies any diarrhea. She denies any nausea or vomiting. PHYSICAL EXAMINATION: Vital Signs: Her T-max this morning is 100.4. She was 102.4 yesterday at [facility]. Current pulse is 95. Blood pressure 127/97. Respiratory rate is 18. She is saturating 100% on 2 L. HEENT: She is normocephalic. Her eyes are anicteric. She has no thrush. Neck: Supple. Lungs: Scattered rhonchi. Heart: Regular rate and rhythm. Abdomen: Soft, nontender. Extremities: Without edema. LABORATORY DATA: White count is 3.8, hemoglobin is 11.5, platelets are 187. BUN is 10 and creatinine 0.6. AST of 38 and her albumin is 3. Serum test is negative. Urinalysis has 2+ leukocytes with 19 white cells. She is influenza A positive with a negative RPR. Blood cultures are pending. Chest x-ray reveals her right basilar infiltrate. In summary, this is a 47-year-old woman, polysubstance use, admitted from detoxification with 2 days of cough and chills. She is positive for influenza A and has a right basilar infiltrate. She received Zosyn, Zithromax, and vancomycin in the ER. I would suggest that we treat her with Rocephin and Zithromax at this time. I would add Tamiflu as she is within the 48-hour window. Would maintain droplet isolation. Obtain a sputum culture if possible and urinary antigens. She received a dose of Zithromax. Would check an EKG before deciding on further atypical pneumonia care. Would continue vancomycin as well pending blood culture results. Further recommendations to follow. VELVET JESSICA M.D. [id number]
[2018-11-14 22:30] VITALS: BMI 31.4
[2018-11-14] MEDS: QUEtiapine FUMARATE 100 MG TABLET (FP) PO SCH (22:42)
[2018-11-14] MEDS: traZODone HCL 50 MG TABLET (FP) PO SCH (22:42)
[2018-11-14] MEDS: OSELTAMIVIR PHOSPHATE 75 MG CAPSULE PO SCH (22:42)
[2018-11-14] MEDS: HEPARIN NA (PORCINE) 5,000 UNITS/ML 1ML VIAL SQ SCH (22:42)
[2018-11-15] MEDS: VANCOMYCIN 1 GM PREMIX - 1 GM/200 ML BAG IVPB SCH ×2 (02:38→14:47)
[2018-11-15] MEDS: HEPARIN NA (PORCINE) 5,000 UNITS/ML 1ML VIAL SQ SCH ×3 (06:34→22:22)
[2018-11-15 07:11] LABS: BASO % 0.6 % (0-2.0); EOS % 3.8 % (0-4.5); HEMATOCRIT 32.8 % (32.4-45.2); HEMOGLOBIN 11.8 GM/dL (10.7-15.3); LYMPH % 23.3 % (8-40); MCH 31.8 pg (25.7-33.7); MEAN CELL VOLUME 88.4 fl (80-96); MEAN PLT VOLUME 8.3 fl (7.5-11.1); MONO % 5.8 % (3.8-10.2); NEUT % 66.5 % (42.8-82.8); PLATELET COUNT 185 K/MM3 (134-434); RBC 3.71 M/mm3 (3.60-5.2); RDW 13.4 % (11.6-15.6)
[2018-11-15 07:33] LABS: ANION GAP 7 MMOL/L (8-16); BLOOD UREA NITROGEN 8 mg/dL (7-18); CALCIUM 7.7 mg/dL (8.5-10.1); CHLORIDE 105 mmol/L (98-107); CO2 25 mmol/L (21-32); CREATININE 0.5 mg/dL (0.55-1.3); GLUCOSE,RANDOM 83 mg/dL (74-106); SODIUM 137 mmol/L (136-145)
[2018-11-15] MEDS ORDERED: DEXTROSE 5%-WATER 100 ML IVPB ONE (09:58)
[2018-11-15] MEDS ORDERED: PT OWN MED DRAWER 7, Y5N ONE (09:58)
[2018-11-15] MEDS ORDERED: FLU VACCINE QUAD 60 MCG/0.5 ML (MDV 18-19) IM ONE (10:00)
--- NOTE | 2018-11-15 10:05 | PN ---
Physical Exam: SUBJECTIVE: Patient seen and examined 24HR EVENTS: -patient admitted for RLL and influenza A infection -started on ceftriaxone and vancomycin -temp 100.2 at 6am OBJECTIVE: Vital Signs Period Temp Pulse Resp BP Sys/Escobar Pulse Ox Last 24 Hr 98.6 F-100.2 F 81-95 18-20 115-127/46-97 96-100 GENERAL: The patient is lethargic, fully oriented, in no acute distress. HEAD: Normal with no signs of trauma. EYES: PERRL, sclera anicteric, conjunctiva clear. ORAL CAVITY: dry mucous membranes ENT: nares patent, oropharynx clear without exudates, moist mucous membranes. NECK: Trachea midline, full range of motion, supple. LUNGS: Breath sounds equal, scattered ronchi, no crackles, no accessory muscle use. HEART: Regular rate and rhythm, S1, S2 without murmur, rub or gallop. ABDOMEN: Soft, nontender, nondistended, normoactive bowel sounds, no guarding, no rebound, EXTREMITIES: 2+ pulses, warm, well-perfused, no edema. NEUROLOGICAL: Cranial nerves II through XII grossly intact. Normal speech, gait not observed. PSYCH: Normal mood, normal affect. SKIN: Warm, dry, normal turgor, no rashes or lesions noted Laboratory Results - last 24 hr 11/14/18 11/14/18 11/14/18 11:08 11:08 11:08 WBC 3.8 L RBC 3.60 Hgb 11.5 Hct 32.7 MCV 90.9 MCH 32.0 MCHC 35.2 RDW 13.2 Plt Count 187 D MPV 8.1 Absolute Neuts (auto) 2.9 Neutrophils % 76.1 Lymphocytes % 14.5 Monocytes % 5.9 Eosinophils % 2.8 Basophils % 0.7 Nucleated RBC % 0 Sodium 140 Potassium 4.1 Chloride 106 Carbon Dioxide 28 Anion Gap 6 L BUN 10 Creatinine 0.6 Creat Clearance w eGFR 106.70 Random Glucose 108 H Calcium 7.7 L Total Bilirubin 0.2 AST 38 H ALT 38 Alkaline Phosphatase 41 L Total Protein 6.0 L Albumin 3.0 L Serum , Qual Negative Urine Color Urine Appearance Urine pH Ur Specific Beaman Urine Protein Urine Glucose (UA) Urine Ketones Urine Blood Urine Nitrite Urine Bilirubin Urine Urobilinogen Ur Leukocyte Esterase Urine WBC (Auto) Urine RBC (Auto) Urine Casts (Auto) U Epithel Cells (Auto) Urine Bacteria (Auto) Influenza A (Rapid) Influenza B (Rapid) 11/14/18 11/14/18 11/15/18 11:19 13:49 06:30 WBC 4.0 RBC 3.71 Hgb 11.8 Hct 32.8 MCV 88.4 MCH 31.8 MCHC 36.0 RDW 13.4 Plt Count 185 MPV 8.3 Absolute Neuts (auto) 2.7 Neutrophils % 66.5 Lymphocytes % 23.3 D Monocytes % 5.8 Eosinophils % 3.8 Basophils % 0.6 Nucleated RBC % 0 Sodium Potassium Chloride Carbon Dioxide Anion Gap BUN Creatinine Creat Clearance w eGFR Random Glucose Calcium Total Bilirubin AST ALT Alkaline Phosphatase Total Protein Albumin Serum , Qual Urine Color Yellow Urine Appearance Clear Urine pH 6.5 Ur Specific Beaman 1.016 Urine Protein Negative Urine Glucose (UA) Negative Urine Ketones Negative Urine Blood 2+ H Urine Nitrite Negative Urine Bilirubin Negative Urine Urobilinogen 1.0 Ur Leukocyte Esterase 2+ H Urine WBC (Auto) 19 Urine RBC (Auto) 3 Urine Casts (Auto) 2 U Epithel Cells (Auto) 3.6 Urine Bacteria (Auto) 67.4 Influenza A (Rapid) Positive A Influenza B (Rapid) Negative 11/15/18 06:30 WBC RBC Hgb Hct MCV MCH MCHC RDW Plt Count MPV Absolute Neuts (auto) Neutrophils % Lymphocytes % Monocytes % Eosinophils % Basophils % Nucleated RBC % Sodium 137 Potassium 4.0 Chloride 105 Carbon Dioxide 25 Anion Gap 7 L BUN 8 Creatinine 0.5 L Creat Clearance w eGFR 131.69 Random Glucose 83 Calcium 7.7 L Total Bilirubin AST ALT Alkaline Phosphatase Total Protein Albumin Serum , Qual Urine Color Urine Appearance Urine pH Ur Specific Beaman Urine Protein Urine Glucose (UA) Urine Ketones Urine Blood Urine Nitrite Urine Bilirubin Urine Urobilinogen Ur Leukocyte Esterase Urine WBC (Auto) Urine RBC (Auto) Urine Casts (Auto) U Epithel Cells (Auto) Urine Bacteria (Auto) Influenza A (Rapid) Influenza B (Rapid) Active Medications Generic Name Dose Route Start Last Admin Trade Name Freq PRN Reason Stop Dose Admin Acetaminophen 650 mg 11/14/18 13:27 11/14/18 22:42 Tylenol - PO 650 mg Q4H PRN Administration FEVER Albuterol Sulfate 1 amp 11/14/18 13:27 Ventolin 0.083% Nebulizer Soln - NEB Q4H PRN SHORT OF BREATH/WHEEZING Citalopram Hydrobromide 20 mg 11/15/18 10:00 Celexa - PO DAILY DEANDRE Haloperidol 5 mg 11/14/18 13:32 Haldol - PO Q8H PRN AGITATION Heparin Sodium (Porcine) 5,000 unit 11/14/18 22:00 11/15/18 06:34 Heparin - SQ 5,000 unit TID DEANDRE Administration Hydroxyzine Pamoate 50 mg 11/14/18 13:32 11/14/18 17:34 Vistaril - PO 50 mg Q8H PRN Administration ANXIETY Sodium Chloride 1,000 mls @ 83 mls/hr 11/14/18 13:30 11/14/18 13:39 Normal Saline - IV 83 mls/hr ASDIR DEANDRE Administration Ceftriaxone Sodium 2 gm/ 100 mls @ 100 mls/hr 11/15/18 10:00 Dextrose IVPB DAILY DEANDRE Protocol Vancomycin HCl 1 gm in 200 mls @ 133.333 mls/hr 11/15/18 03:00 11/15/18 02:38 Vancomycin 1 Gm Premix - IVPB 133.333 mls/hr Q12H DEANDRE Administration Protocol Influenza Virus Vaccine Quadrival 60 mcg 11/15/18 10:00 Flulaval Quad [id number] IM 11/15/18 10:01 .ONCE ONE Methocarbamol 1,000 mg 11/14/18 16:57 11/14/18 17:34 Robaxin - PO 1,000 mg Q6H PRN Administration BACK PAIN Nicotine Polacrilex 2 mg 11/14/18 13:31 Nicorette Gum - BUC Q2H PRN NICOTINE REPLACEMENT RX Ondansetron HCl 4 mg 11/14/18 13:27 Zofran Injection IVPUSH Q6H PRN NAUSEA Oseltamivir Phosphate 75 mg 11/14/18 22:00 11/14/18 22:42 Tamiflu - PO 11/19/18 21:59 75 mg BID DEANDRE Administration Quetiapine Fumarate 100 mg 11/14/18 22:00 11/14/18 22:42 Seroquel - PO 100 mg HS DEANDRE Administration Trazodone HCl 150 mg 11/14/18 22:00 11/14/18 22:42 Desyrel - PO 150 mg HS DEANDRE Administration ASSESSMENT/PLAN: 47 year old woman with a history of bipolar disorder, polysubstance abuse, OA, recent psychiatric admission who presented to the ED from [facility] because of fever, cough, chills, and myalgias found to have FLU A positive swab and RLL PNA. 1. pneumonia, - ceftriaxone and vanco 1G as per ID - PRN Oxygen to maintain saturation >90% - Albuterol nebulizers as needed - urine Legionella, pneumococcus Ag pending - Sputum and blood culture results pending 2. Influenza A -Tamiflu x 5days - cephacol PRN sore throat - robitussin PRN cough - IVF hydration 3. Bipolar disorder - Continue Celexa, Seroquel, Trazodone - Continue Hydroxyzine as needed for anxiety - Continue Haldol PRN agitation 4. Alcohol dependence - Completed detox 5. Nicotine dependence - nicotine gum 2mg q2h 6. DVT PPX -SC heparin TID 7. Back Pain -PRN Robaxin 8. DISPO: full code - Interested in rehab once she is ready for discharge Problem List - Problems (1) Influenza A Code(s): J10.1 - FLU DUE TO OTH IDENT INFLUENZA VIRUS W OTH RESP MANIFEST (2) Pneumonia Code(s): J18.9 - PNEUMONIA, UNSPECIFIED ORGANISM Qualifiers: Pneumonia type: due to unspecified organism Laterality: bilateral Lung location: lower lobe of lung Qualified Code(s): J18.1 - Lobar pneumonia, unspecified organism (3) Polysubstance abuse Code(s): F19.10 - OTHER PSYCHOACTIVE SUBSTANCE ABUSE, UNCOMPLICATED (4) Alcohol dependence with uncomplicated withdrawal Code(s): F10.230 - ALCOHOL DEPENDENCE WITH WITHDRAWAL, UNCOMPLICATED (5) Bipolar II disorder Code(s): F31.81 - BIPOLAR II DISORDER (6) Cocaine dependence Code(s): F14.20 - COCAINE DEPENDENCE, UNCOMPLICATED Qualifiers: Substance use status: uncomplicated Qualified Code(s): F14.20 - Cocaine dependence, uncomplicated (7) Nicotine dependence Code(s): F17.200 - NICOTINE DEPENDENCE, UNSPECIFIED, UNCOMPLICATED Qualifiers: Nicotine product type: cigarettes Substance use status: uncomplicated Qualified Code(s): F17.210 - Nicotine dependence, cigarettes, uncomplicated (8) Substance induced mood disorder Code(s): F19.94 - OTH PSYCHOACTIVE SUBSTANCE USE, UNSP W MOOD DISORDER (9) Cannabis dependence Code(s): F12.20 - CANNABIS DEPENDENCE, UNCOMPLICATED Visit type - Emergency Visit Emergency Visit: Yes ED Registration Date: 11/14/18 Care time: The patient presented to the Emergency Department on the above date and was hospitalized for further evaluation of their emergent condition. - New Patient This patient is new to me today: Yes Date on this admission: 11/15/18 - Critical Care Critical Care patient: No - Discharge Referral Referred to [facility] Med P.C.: No
[2018-11-15] MEDS: SODIUM CHLORIDE 1,000 ML IV SCH ×2 (10:13→14:47)
[2018-11-15] MEDS: OSELTAMIVIR PHOSPHATE 75 MG CAPSULE PO SCH ×2 (10:14→22:21)
[2018-11-15] MEDS: CEFTRIAXONE 2 GM in DEXTROSE 5%-WATER 100 ML IVPB SCH (10:14)
[2018-11-15] MEDS: CITALOPRAM HYDROBROMIDE 20 MG TABLET (FP) PO SCH (10:14)
[2018-11-15] MEDS: hydrOXYzine PAMOATE 50 MG CAPSULE (FP) PO PRN (11:33)
[2018-11-15] MEDS: METHOCARBAMOL 500 MG TABLET PO PRN (11:33)
[2018-11-15] MEDS ORDERED: BENZOCAINE/MENTH/CETYLPYRD CL 1 EACH LOZENGE MM PRN (12:13)
[2018-11-15] MEDS: guaiFENesin 200 MG/10 ML 10 ML UNIT-DOSE CUPS PO PRN (14:47)
--- NOTE | 2018-11-15 15:14 | EKG ---
Test Reason : Blood Pressure : / mmHG Vent. Rate : 079 BPM Atrial Rate : 079 BPM P-R Int : 138 ms QRS Dur : 082 ms QT Int : 372 ms P-R-T Axes : 055 046 036 degrees QTc Int : 426 ms NORMAL SINUS RHYTHM POSSIBLE LEFT ATRIAL ENLARGEMENT BORDERLINE ECG WHEN COMPARED WITH ECG OF 14-NOV-2018 13:56, NO SIGNIFICANT CHANGE WAS FOUND Confirmed by SOCRATES CASTANEDA, LISSETH ([id number]) on 11/15/2018 3:13:52 PM Referred By: ANN MARIE SHAH Confirmed By:LISSETH CROWELL MD
--- NOTE | 2018-11-15 16:46 | PN ---
Progress Note (short form) - Note Progress Note: doing better fevers improved cough now productive Vital Signs Period Temp Pulse Resp BP Sys/Escobar Pulse Ox Last 24 Hr 98.4 F-100.2 F 75-86 20-20 100-122/46-67 93-96 cor-rrr lungs crackles right base abd soft,nt ext no edema CBC, BMP 11/15/18 06:30 11/15/18 06:30 Microbiology 11/14/18 11:07 Blood - Peripheral Venous Blood Culture - Preliminary NO GROWTH OBTAINED AFTER 24 HOURS, INCUBATION TO CONTINUE FOR 4 DAYS. 11/14/18 11:08 Blood - Peripheral Venous Blood Culture - Preliminary NO GROWTH OBTAINED AFTER 24 HOURS, INCUBATION TO CONTINUE FOR 4 DAYS. 11/14/18 20:09 Urine For Antigen Detection Legionella Antigen - Final 11/14/18 20:09 Urine For Antigen Detection Streptococcus pneumoniae Antigen (M - Final Current Medications Acetaminophen (Tylenol -) 650 mg PO Q4H PRN PRN Reason: FEVER Last Admin: 11/14/18 22:42 Dose: 650 mg Albuterol Sulfate (Ventolin 0.083% Nebulizer Soln -) 1 amp NEB Q4H PRN PRN Reason: SHORT OF BREATH/WHEEZING Benzocaine/Menthol (Cepacol Lozenge -) 1 each MM Q4H PRN PRN Reason: SORE THROAT Last Admin: 11/15/18 14:47 Dose: 1 each Citalopram Hydrobromide (Celexa -) 20 mg PO DAILY [facility] Last Admin: 11/15/18 10:14 Dose: 20 mg Guaifenesin (Robitussin -) 10 ml PO Q8H PRN PRN Reason: COUGH Last Admin: 11/15/18 14:47 Dose: 10 ml Haloperidol (Haldol -) 5 mg PO Q8H PRN PRN Reason: AGITATION Heparin Sodium (Porcine) (Heparin -) 5,000 unit SQ TID [facility] Last Admin: 11/15/18 14:47 Dose: 5,000 unit Hydroxyzine Pamoate (Vistaril -) 50 mg PO Q8H PRN PRN Reason: ANXIETY Last Admin: 11/15/18 11:33 Dose: 50 mg Sodium Chloride (Normal Saline -) 1,000 mls @ 83 mls/hr IV ASDIR [facility] [place] Last Admin: 11/15/18 14:47 Dose: Not Given Ceftriaxone Sodium 2 gm/ (Dextrose) 100 mls @ 100 mls/hr IVPB DAILY DEANDRE; Protocol Last Admin: 11/15/18 10:14 Dose: 100 mls/hr Vancomycin HCl (Vancomycin 1 Gm Premix -) 1 gm in 200 mls @ 133.333 mls/hr IVPB Q12H DEANDRE; Protocol Last Admin: 11/15/18 14:47 Dose: 133.333 mls/hr Methocarbamol (Robaxin -) 1,000 mg PO Q6H PRN PRN Reason: BACK PAIN Last Admin: 11/15/18 11:33 Dose: 1,000 mg Nicotine Polacrilex (Nicorette Gum -) 2 mg BUC Q2H PRN PRN Reason: NICOTINE REPLACEMENT RX Ondansetron HCl (Zofran Injection) 4 mg IVPUSH Q6H PRN PRN Reason: NAUSEA Oseltamivir Phosphate (Tamiflu -) 75 mg PO BID DEANDRE Stop: 11/19/18 21:59 Last Admin: 11/15/18 10:14 Dose: 75 mg Quetiapine Fumarate (Seroquel -) 100 mg PO HS DEANDRE Last Admin: 11/14/18 22:42 Dose: 100 mg Trazodone HCl (Desyrel -) 150 mg PO HS DEANDRE Last Admin: 11/14/18 22:42 Dose: 150 mg +influenza A +right basilar infiltrate droplet isolation tamiflu continue rocephin/vanco/tamiflu check vanco trough before fourth dose Problem List - Problems (1) Influenza A Code(s): J10.1 - FLU DUE TO OTH IDENT INFLUENZA VIRUS W OTH RESP MANIFEST (2) Pneumonia Code(s): J18.9 - PNEUMONIA, UNSPECIFIED ORGANISM Qualifiers: Qualified Code(s): J18.1 - Lobar pneumonia, unspecified organism (3) Polysubstance abuse Code(s): F19.10 - OTHER PSYCHOACTIVE SUBSTANCE ABUSE, UNCOMPLICATED (4) Bipolar II disorder Code(s): F31.81 - BIPOLAR II DISORDER
[2018-11-15] MEDS: QUEtiapine FUMARATE 100 MG TABLET (FP) PO SCH (22:21)
[2018-11-15] MEDS: traZODone HCL 50 MG TABLET (FP) PO SCH (22:21)
[2018-11-16] MEDS: VANCOMYCIN 1 GM PREMIX - 1 GM/200 ML BAG IVPB SCH ×2 (02:21→17:20)
[2018-11-16] MEDS: HEPARIN NA (PORCINE) 5,000 UNITS/ML 1ML VIAL SQ SCH ×3 (05:24→21:27)
[2018-11-16 07:33] LABS: HEMATOCRIT 32.5 % (32.4-45.2); HEMOGLOBIN 11.7 GM/dL (10.7-15.3); MCH 31.8 pg (25.7-33.7); MEAN CELL VOLUME 88.5 fl (80-96); MEAN PLT VOLUME 8.1 fl (7.5-11.1); PLATELET COUNT 201 K/MM3 (134-434); RBC 3.67 M/mm3 (3.60-5.2); RDW 13.5 % (11.6-15.6); WHITE BLOOD COUNT 3.5 K/mm3 (4.0-10.0)
[2018-11-16 08:02] LABS: ALBUMIN 2.7 g/dl (3.4-5.0); ALK PHOS 38 U/L (45-117); ANION GAP 7 MMOL/L (8-16); BILIRUBIN,TOTAL 0.2 mg/dL (0.2-1); BLOOD UREA NITROGEN 10 mg/dL (7-18); CALCIUM 7.6 mg/dL (8.5-10.1); CHLORIDE 107 mmol/L (98-107); CO2 26 mmol/L (21-32); CREATININE 0.6 mg/dL (0.55-1.3); GLUCOSE,RANDOM 80 mg/dL (74-106); MAGNESIUM 2.5 mg/dL (1.8-2.4); PHOSPHOROUS 4.4 mg/dL (2.5-4.9); POTASSIUM 4.2 mmol/L (3.5-5.1); SGOT/AST 24 U/L (15-37); SGPT/ALT 34 U/L (13-61); SODIUM 140 mmol/L (136-145); TOT PROT 5.7 g/dl (6.4-8.2)
--- NOTE | 2018-11-16 09:27 | PN ---
Physical Exam: SUBJECTIVE: Patient seen and examined 24HR EVENTS: -PT endorses mild improvement in symptoms OBJECTIVE: Vital Signs Period Temp Pulse Resp BP Sys/Escobar Pulse Ox Last 24 Hr 98.4 F-98.8 F 70-80 20-20 100-119/58-75 93 GENERAL: The patient is awake, fully oriented, in no acute distress. HEAD: Normal with no signs of trauma. EYES: PERRL, sclera anicteric, conjunctiva clear. ORAL CAVITY: dry mucous membranes ENT: nares patent, oropharynx clear without exudates, moist mucous membranes. NECK: Trachea midline, full range of motion, supple. LUNGS: b/l ronchi and crackles, no accessory muscle use. HEART: Regular rate and rhythm, S1, S2 without murmur, rub or gallop. ABDOMEN: Soft, nontender, nondistended, normoactive bowel sounds, no guarding, no rebound, EXTREMITIES: 2+ pulses, warm, well-perfused, no edema. NEUROLOGICAL: Cranial nerves II through XII grossly intact. Normal speech, gait not observed. PSYCH: Normal mood, normal affect. SKIN: Warm, dry, normal turgor, no rashes or lesions noted Laboratory Results - last 24 hr 11/16/18 11/16/18 06:05 06:05 WBC 3.5 L RBC 3.67 Hgb 11.7 Hct 32.5 MCV 88.5 MCH 31.8 MCHC 36.0 RDW 13.5 Plt Count 201 MPV 8.1 Sodium 140 Potassium 4.2 Chloride 107 Carbon Dioxide 26 Anion Gap 7 L BUN 10 Creatinine 0.6 Creat Clearance w eGFR 106.70 Random Glucose 80 Calcium 7.6 L Phosphorus 4.4 Magnesium 2.5 H Total Bilirubin 0.2 AST 24 ALT 34 Alkaline Phosphatase 38 L Total Protein 5.7 L Albumin 2.7 L Active Medications Generic Name Dose Route Start Last Admin Trade Name Freq PRN Reason Stop Dose Admin Acetaminophen 650 mg 11/14/18 13:27 11/14/18 22:42 Tylenol - PO 650 mg Q4H PRN Administration FEVER Albuterol Sulfate 1 amp 11/14/18 13:27 Ventolin 0.083% Nebulizer Soln - NEB Q4H PRN SHORT OF BREATH/WHEEZING Benzocaine/Menthol 1 each 11/15/18 12:13 11/15/18 14:47 Cepacol Lozenge - MM 1 each Q4H PRN Administration SORE THROAT Citalopram Hydrobromide 20 mg 11/15/18 10:00 11/15/18 10:14 Celexa - PO 20 mg DAILY DEANDRE Administration Guaifenesin 10 ml 11/15/18 12:25 11/15/18 14:47 Robitussin - PO 10 ml Q8H PRN Administration COUGH Haloperidol 5 mg 11/14/18 13:32 Haldol - PO Q8H PRN AGITATION Heparin Sodium (Porcine) 5,000 unit 11/14/18 22:00 11/16/18 05:24 Heparin - SQ 5,000 unit TID DEANDRE Administration Hydroxyzine Pamoate 50 mg 11/14/18 13:32 11/15/18 11:33 Vistaril - PO 50 mg Q8H PRN Administration ANXIETY Sodium Chloride 1,000 mls @ 83 mls/hr 11/14/18 13:30 11/15/18 14:47 Normal Saline - IV Not Given ASDIR [facility] Ceftriaxone Sodium 2 gm/ 100 mls @ 100 mls/hr 11/15/18 10:00 11/15/18 10:14 Dextrose IVPB 100 mls/hr DAILY [facility] Administration Protocol Vancomycin HCl 1 gm in 200 mls @ 133.333 mls/hr 11/15/18 03:00 11/16/18 02:21 Vancomycin 1 Gm Premix - IVPB 133.333 mls/hr Q12H DEANDRE Administration Protocol Methocarbamol 1,000 mg 11/14/18 16:57 11/15/18 11:33 Robaxin - PO 1,000 mg Q6H PRN Administration BACK PAIN Nicotine Polacrilex 2 mg 11/14/18 13:31 Nicorette Gum - BUC Q2H PRN NICOTINE REPLACEMENT RX Ondansetron HCl 4 mg 11/14/18 13:27 Zofran Injection IVPUSH Q6H PRN NAUSEA Oseltamivir Phosphate 75 mg 11/14/18 22:00 11/15/18 22:21 Tamiflu - PO 11/19/18 21:59 75 mg BID DEANDRE Administration Quetiapine Fumarate 100 mg 11/14/18 22:00 11/15/18 22:21 Seroquel - PO 100 mg HS DEANDRE Administration Trazodone HCl 150 mg 11/14/18 22:00 11/15/18 22:21 Desyrel - PO 150 mg HS DEANDRE Administration ASSESSMENT/PLAN: 47 year old woman with a history of bipolar disorder, polysubstance abuse, OA, recent psychiatric admission who presented to the ED from [facility] because of fever, cough, chills, and myalgias found to have FLU A positive swab and RLL PNA. 1. pneumonia, - ceftriaxone and vanco 1G as per ID (vanco level 7.2 on 11/16) - PRN Oxygen to maintain saturation >90% - Albuterol nebulizers as needed - urine Legionella, pneumococcus Ag negative - Sputum and blood culture (no growth to date) 2. Influenza A -Tamiflu x 5days - cephacol PRN sore throat - robitussin PRN cough - IVF hydration 3. Bipolar disorder - Continue Celexa, Seroquel, Trazodone - Continue Hydroxyzine as needed for anxiety - Continue Haldol PRN agitation 4. Alcohol dependence - Completed detox 5. Nicotine dependence - nicotine gum 2mg q2h 6. DVT PPX -SC heparin TID 7. Back Pain -PRN Robaxin 8. DISPO: full code - Interested in [facility] rehab once she is ready for discharge Problem List - Problems (1) Influenza A Code(s): J10.1 - FLU DUE TO OTH IDENT INFLUENZA VIRUS W OTH RESP MANIFEST (2) Pneumonia Code(s): J18.9 - PNEUMONIA, UNSPECIFIED ORGANISM Qualifiers: Pneumonia type: due to unspecified organism Laterality: bilateral Lung location: lower lobe of lung Qualified Code(s): J18.1 - Lobar pneumonia, unspecified organism (3) Polysubstance abuse Code(s): F19.10 - OTHER PSYCHOACTIVE SUBSTANCE ABUSE, UNCOMPLICATED (4) Alcohol dependence with uncomplicated withdrawal Code(s): F10.230 - ALCOHOL DEPENDENCE WITH WITHDRAWAL, UNCOMPLICATED (5) Bipolar II disorder Code(s): F31.81 - BIPOLAR II DISORDER (6) Cocaine dependence Code(s): F14.20 - COCAINE DEPENDENCE, UNCOMPLICATED Qualifiers: Substance use status: uncomplicated Qualified Code(s): F14.20 - Cocaine dependence, uncomplicated (7) Nicotine dependence Code(s): F17.200 - NICOTINE DEPENDENCE, UNSPECIFIED, UNCOMPLICATED Qualifiers: Nicotine product type: cigarettes Substance use status: uncomplicated Qualified Code(s): F17.210 - Nicotine dependence, cigarettes, uncomplicated (8) Substance induced mood disorder Code(s): F19.94 - OTH PSYCHOACTIVE SUBSTANCE USE, UNSP W MOOD DISORDER (9) Cannabis dependence Code(s): F12.20 - CANNABIS DEPENDENCE, UNCOMPLICATED Visit type - Emergency Visit Emergency Visit: Yes ED Registration Date: 11/14/18 Care time: The patient presented to the Emergency Department on the above date and was hospitalized for further evaluation of their emergent condition. - New Patient This patient is new to me today: No - Critical Care Critical Care patient: No - Discharge Referral Referred to [facility] Med P.C.: No
[2018-11-16] MEDS ORDERED: DEXTROSE 5%-WATER 100 ML IVPB ONE (11:00)
[2018-11-16] MEDS: CEFTRIAXONE 2 GM in DEXTROSE 5%-WATER 100 ML IVPB SCH (11:33)
[2018-11-16] MEDS: METHOCARBAMOL 500 MG TABLET PO PRN (11:33)
[2018-11-16] MEDS: guaiFENesin 200 MG/10 ML 10 ML UNIT-DOSE CUPS PO PRN (11:34)
[2018-11-16] MEDS: CITALOPRAM HYDROBROMIDE 20 MG TABLET (FP) PO SCH (11:34)
[2018-11-16] MEDS: OSELTAMIVIR PHOSPHATE 75 MG CAPSULE PO SCH ×2 (11:34→21:27)
[2018-11-16] MEDS: hydrOXYzine PAMOATE 50 MG CAPSULE (FP) PO PRN (11:34)
[2018-11-16] MEDS ORDERED: VANCOMYCIN 1 GM in D5W (PRE-DOCKED) 1,000 MG/250 ML IVPB ONE (17:23)
[2018-11-16] MEDS ORDERED: VANCOMYCIN 1 GM PREMIX - 1 GM/200 ML BAG IVPB ONE (17:30)
--- NOTE | 2018-11-16 17:42 | PN ---
Progress Note (short form) - Note Progress Note: feels better still coughing fevers resolved Vital Signs Period Temp Pulse Resp BP Sys/Escobar Pulse Ox Last 24 Hr 98.4 F-98.5 F 72-80 20-20 115-119/71-75 93 cor-rrr lungs scattered rhonchi abd soft,nt ext no edema 11/16/18 06:05 11/16/18 06:05 Microbiology 11/14/18 20:09 Sputum - Expectorated Gram Stain - Final 11/14/18 20:09 Sputum - Expectorated Sputum Culture - Preliminary NORMAL RESPIRATORY ASHWINI 11/14/18 11:07 Blood - Peripheral Venous Blood Culture - Preliminary NO GROWTH OBTAINED AFTER 48 HOURS, INCUBATION TO CONTINUE FOR 3 DAYS. 11/14/18 11:08 Blood - Peripheral Venous Blood Culture - Preliminary NO GROWTH OBTAINED AFTER 48 HOURS, INCUBATION TO CONTINUE FOR 3 DAYS. 11/14/18 20:09 Urine For Antigen Detection Legionella Antigen - Final 11/14/18 20:09 Urine For Antigen Detection Streptococcus pneumoniae Antigen (M - Final a/p +influenza A +right basilar infiltrate droplet isolation d/c vancomycin continue rocephin/tamiflu #2 Problem List - Problems (1) Influenza A Code(s): J10.1 - FLU DUE TO OTH IDENT INFLUENZA VIRUS W OTH RESP MANIFEST (2) Pneumonia Code(s): J18.9 - PNEUMONIA, UNSPECIFIED ORGANISM Qualifiers: Pneumonia type: due to unspecified organism Laterality: bilateral Lung location: lower lobe of lung Qualified Code(s): J18.1 - Lobar pneumonia, unspecified organism (3) Polysubstance abuse Code(s): F19.10 - OTHER PSYCHOACTIVE SUBSTANCE ABUSE, UNCOMPLICATED (4) Bipolar II disorder Code(s): F31.81 - BIPOLAR II DISORDER
[2018-11-16] MEDS: QUEtiapine FUMARATE 100 MG TABLET (FP) PO SCH (21:27)
[2018-11-16] MEDS: traZODone HCL 50 MG TABLET (FP) PO SCH (21:27)
[2018-11-17] MEDS: SODIUM CHLORIDE 1,000 ML IV SCH (06:09)
[2018-11-17] MEDS: HEPARIN NA (PORCINE) 5,000 UNITS/ML 1ML VIAL SQ SCH ×3 (06:10→21:58)
[2018-11-17 08:04] LABS: HEMATOCRIT 31.7 % (32.4-45.2); HEMOGLOBIN 11.3 GM/dL (10.7-15.3); MCH 31.6 pg (25.7-33.7); MCHC 35.6 g/dl (32.0-36.0); MEAN CELL VOLUME 88.7 fl (80-96); PLATELET COUNT 197 K/MM3 (134-434); RBC 3.58 M/mm3 (3.60-5.2); RDW 13.4 % (11.6-15.6); WHITE BLOOD COUNT 3.3 K/mm3 (4.0-10.0)
[2018-11-17 08:39] LABS: ALBUMIN 2.6 g/dl (3.4-5.0); ALK PHOS 41 U/L (45-117); ANION GAP 4 MMOL/L (8-16); BILIRUBIN,TOTAL 0.3 mg/dL (0.2-1); BLOOD UREA NITROGEN 11 mg/dL (7-18); CALCIUM 7.6 mg/dL (8.5-10.1); CHLORIDE 109 mmol/L (98-107); CO2 24 mmol/L (21-32); CREATININE 0.5 mg/dL (0.55-1.3); GLUCOSE,RANDOM 85 mg/dL (74-106); POTASSIUM 4.3 mmol/L (3.5-5.1); SGOT/AST 16 U/L (15-37); SGPT/ALT 28 U/L (13-61); SODIUM 138 mmol/L (136-145); TOT PROT 5.6 g/dl (6.4-8.2)
[2018-11-17] MEDS ORDERED: DEXTROSE 5%-WATER 100 ML IVPB ONE (10:11)
[2018-11-17] MEDS: CEFTRIAXONE 2 GM in DEXTROSE 5%-WATER 100 ML IVPB SCH (10:25)
[2018-11-17] MEDS: guaiFENesin 200 MG/10 ML 10 ML UNIT-DOSE CUPS PO PRN (10:26)
[2018-11-17] MEDS: CITALOPRAM HYDROBROMIDE 20 MG TABLET (FP) PO SCH (10:26)
[2018-11-17] MEDS: METHOCARBAMOL 500 MG TABLET PO PRN (10:26)
[2018-11-17] MEDS: OSELTAMIVIR PHOSPHATE 75 MG CAPSULE PO SCH ×2 (10:26→21:57)
[2018-11-17] MEDS: hydrOXYzine PAMOATE 50 MG CAPSULE (FP) PO PRN (10:28)
[2018-11-17] MEDS ORDERED: PT OWN MED DRAWER 7, Y5N ONE (10:37)
--- NOTE | 2018-11-17 10:52 | PN ---
Progress Note (short form) - Note Progress Note: conitnues to have productive cough but improved since arrival. still feeling overall weak. denies Cp, SOB, fever, chills, N/V/C/D Current Medications Generic Name Dose Route Start Last Admin Trade Name Freq PRN Reason Stop Dose Admin Acetaminophen 650 mg 11/14/18 13:27 11/14/18 22:42 Tylenol - PO 650 mg Q4H PRN Administration FEVER Albuterol Sulfate 1 amp 11/14/18 13:27 11/16/18 11:45 Ventolin 0.083% Nebulizer Soln - NEB 1 amp Q4H PRN Administration SHORT OF BREATH/WHEEZING Benzocaine/Menthol 1 each 11/15/18 12:13 11/15/18 14:47 Cepacol Lozenge - MM 1 each Q4H PRN Administration SORE THROAT Citalopram Hydrobromide 20 mg 11/15/18 10:00 11/17/18 10:26 Celexa - PO 20 mg DAILY DEANDRE Administration Guaifenesin 10 ml 11/15/18 12:25 11/17/18 10:26 Robitussin - PO 10 ml Q8H PRN Administration COUGH Haloperidol 5 mg 11/14/18 13:32 Haldol - PO Q8H PRN AGITATION Heparin Sodium (Porcine) 5,000 unit 11/14/18 22:00 11/17/18 06:10 Heparin - SQ 5,000 unit TID DEANDRE Administration Hydroxyzine Pamoate 50 mg 11/14/18 13:32 11/17/18 10:28 Vistaril - PO 50 mg Q8H PRN Administration ANXIETY Sodium Chloride 1,000 mls @ 83 mls/hr 11/14/18 13:30 11/17/18 06:09 Normal Saline - IV 83 mls/hr ASDIR DEANDRE Administration Ceftriaxone Sodium 2 gm/ 100 mls @ 100 mls/hr 11/15/18 10:00 11/17/18 10:25 Dextrose IVPB 100 mls/hr DAILY DEANDRE Administration Protocol Methocarbamol 1,000 mg 11/14/18 16:57 11/17/18 10:26 Robaxin - PO 1,000 mg Q6H PRN Administration BACK PAIN Nicotine Polacrilex 2 mg 11/14/18 13:31 Nicorette Gum - BUC Q2H PRN NICOTINE REPLACEMENT RX Ondansetron HCl 4 mg 11/14/18 13:27 Zofran Injection IVPUSH Q6H PRN NAUSEA Oseltamivir Phosphate 75 mg 11/14/18 22:00 11/17/18 10:26 Tamiflu - PO 11/19/18 21:59 75 mg BID DEANDRE Administration Quetiapine Fumarate 100 mg 11/14/18 22:00 11/16/18 21:27 Seroquel - PO 100 mg HS DEANDRE Administration Trazodone HCl 150 mg 11/14/18 22:00 11/16/18 21:27 Desyrel - PO 150 mg HS DEANDRE Administration Last Vital Signs Temp Pulse Resp BP Pulse Ox 98.1 F 62 20 117/71 98 11/17/18 06:00 11/17/18 06:00 11/17/18 06:00 11/17/18 06:00 11/16/18 21:00 General lethargic CV S1 s2 RRR no murmur/rub/gallop Lungs CTA B/l no wheezing/rales/rhonchi Abdomen soft NT/ND Extremities no pedal edema CBCD WBC 3.3 K/mm3 (4.0-10.0) L 11/17/18 06:30 RBC 3.58 M/mm3 (3.60-5.2) L 11/17/18 06:30 Hgb 11.3 GM/dL (10.7-15.3) 11/17/18 06:30 Hct 31.7 % (32.4-45.2) L 11/17/18 06:30 MCV 88.7 fl (80-96) 11/17/18 06:30 MCHC 35.6 g/dl (32.0-36.0) 11/17/18 06:30 RDW 13.4 % (11.6-15.6) 11/17/18 06:30 Plt Count 197 K/MM3 (134-434) 11/17/18 06:30 MPV 8.0 fl (7.5-11.1) 11/17/18 06:30 CMP Sodium 138 mmol/L (136-145) 11/17/18 06:30 Potassium 4.3 mmol/L (3.5-5.1) 11/17/18 06:30 Chloride 109 mmol/L (98-107) H 11/17/18 06:30 Carbon Dioxide 24 mmol/L (21-32) 11/17/18 06:30 Anion Gap 4 MMOL/L (8-16) L 11/17/18 06:30 BUN 11 mg/dL (7-18) 11/17/18 06:30 Creatinine 0.5 mg/dL (0.55-1.3) L 11/17/18 06:30 Creat Clearance w eGFR 131.69 (>60) 11/17/18 06:30 Calcium 7.6 mg/dL (8.5-10.1) L 11/17/18 06:30 Total Bilirubin 0.3 mg/dL (0.2-1) 11/17/18 06:30 AST 16 U/L (15-37) 11/17/18 06:30 ALT 28 U/L (13-61) 11/17/18 06:30 Alkaline Phosphatase 41 U/L (45-117) L 11/17/18 06:30 Total Protein 5.6 g/dl (6.4-8.2) L 11/17/18 06:30 Albumin 2.6 g/dl (3.4-5.0) L 11/17/18 06:30 Microbiology 11/14/18 20:09 Sputum - Expectorated Gram Stain - Final 11/14/18 20:09 Sputum - Expectorated Sputum Culture - Preliminary NORMAL RESPIRATORY ASHWINI 11/14/18 11:07 Blood - Peripheral Venous Blood Culture - Preliminary NO GROWTH OBTAINED AFTER 48 HOURS, INCUBATION TO CONTINUE FOR 3 DAYS. 11/14/18 11:08 Blood - Peripheral Venous Blood Culture - Preliminary NO GROWTH OBTAINED AFTER 48 HOURS, INCUBATION TO CONTINUE FOR 3 DAYS. 11/14/18 20:09 Urine For Antigen Detection Legionella Antigen - Final 11/14/18 20:09 Urine For Antigen Detection Streptococcus pneumoniae Antigen (M - Final A/P 47 year old woman with a history of bipolar disorder, polysubstance abuse, OA, recent psychiatric admission who presented to the ED from [facility] because of fever, cough, chills, and myalgias found to have FLU A positive swab and RLL PNA. 1. CAP- has some productive cough but overall improved. not requiring supplemental oxygen. on ceftriaxone day 3. ID on board. f/u Cx 2. Flu A- afebrile. on tamiflu day 3 of 5. droplet precautions 3. Continuous polysubstance abuse- completed detox at [facility] and interested in their inpatient program. will need to be off isolation precautions before able to return 4. bipolar disorder- cont home medications 5. DVT ppx- hep sq Visit type - Emergency Visit Emergency Visit: Yes ED Registration Date: 11/14/18 Care time: The patient presented to the Emergency Department on the above date and was hospitalized for further evaluation of their emergent condition. - New Patient This patient is new to me today: Yes Date on this admission: 11/17/18 - Critical Care Critical Care patient: No - Discharge Referral Referred to [facility] Med P.C.: No
--- NOTE | 2018-11-17 16:54 | PN ---
Progress Note (short form) - Note Progress Note: less cough no fever Vital Signs Period Temp Pulse Resp BP Sys/Escobar Pulse Ox Last 24 Hr 98 F-98.3 F 62-72 18-20 110-117/64-71 96-98 cor-rrr lungs decreased at bases abd soft,nt ext no edema CBC, BMP 11/17/18 06:30 11/17/18 06:30 Microbiology 11/14/18 20:09 Sputum - Expectorated Gram Stain - Final 11/14/18 20:09 Sputum - Expectorated Sputum Culture - Preliminary Pending Organism 11/14/18 11:07 Blood - Peripheral Venous Blood Culture - Preliminary NO GROWTH OBTAINED AFTER 72 HOURS, INCUBATION TO CONTINUE FOR 2 DAYS. 11/14/18 11:08 Blood - Peripheral Venous Blood Culture - Preliminary NO GROWTH OBTAINED AFTER 72 HOURS, INCUBATION TO CONTINUE FOR 2 DAYS. 11/14/18 20:09 Urine For Antigen Detection Legionella Antigen - Final 11/14/18 20:09 Urine For Antigen Detection Streptococcus pneumoniae Antigen (M - Final Active Medications Acetaminophen (Tylenol -) 650 mg PO Q4H PRN PRN Reason: FEVER Last Admin: 11/14/18 22:42 Dose: 650 mg Albuterol Sulfate (Ventolin 0.083% Nebulizer Soln -) 1 amp NEB Q4H PRN PRN Reason: SHORT OF BREATH/WHEEZING Last Admin: 11/16/18 11:45 Dose: 1 amp Benzocaine/Menthol (Cepacol Lozenge -) 1 each MM Q4H PRN PRN Reason: SORE THROAT Last Admin: 11/15/18 14:47 Dose: 1 each Citalopram Hydrobromide (Celexa -) 20 mg PO DAILY [facility] Last Admin: 11/17/18 10:26 Dose: 20 mg Guaifenesin (Robitussin -) 10 ml PO Q8H PRN PRN Reason: COUGH Last Admin: 11/17/18 10:26 Dose: 10 ml Haloperidol (Haldol -) 5 mg PO Q8H PRN PRN Reason: AGITATION Heparin Sodium (Porcine) (Heparin -) 5,000 unit SQ TID [facility] Last Admin: 11/17/18 13:55 Dose: Not Given Hydroxyzine Pamoate (Vistaril -) 50 mg PO Q8H PRN PRN Reason: ANXIETY Last Admin: 11/17/18 10:28 Dose: 50 mg Sodium Chloride (Normal Saline -) 1,000 mls @ 83 mls/hr IV ASDIR DEANDRE Last Admin: 11/17/18 06:09 Dose: 83 mls/hr Ceftriaxone Sodium 2 gm/ (Dextrose) 100 mls @ 100 mls/hr IVPB DAILY DEANDRE; Protocol Last Admin: 11/17/18 10:25 Dose: 100 mls/hr Methocarbamol (Robaxin -) 1,000 mg PO Q6H PRN PRN Reason: BACK PAIN Last Admin: 11/17/18 10:26 Dose: 1,000 mg Nicotine Polacrilex (Nicorette Gum -) 2 mg BUC Q2H PRN PRN Reason: NICOTINE REPLACEMENT RX Ondansetron HCl (Zofran Injection) 4 mg IVPUSH Q6H PRN PRN Reason: NAUSEA Oseltamivir Phosphate (Tamiflu -) 75 mg PO BID DEANDRE Stop: 11/19/18 21:59 Last Admin: 11/17/18 10:26 Dose: 75 mg Quetiapine Fumarate (Seroquel -) 100 mg PO HS DEANDRE Last Admin: 11/16/18 21:27 Dose: 100 mg Trazodone HCl (Desyrel -) 150 mg PO HS DEANDRE Last Admin: 11/16/18 21:27 Dose: 150 mg a/p +influenza A +right basilar infiltrate droplet isolation d/c vancomycin continue rocephin/tamiflu #3 can switch to augmentin on Tuesday to complete 7 days complete 5 days tamiflu Problem List - Problems (1) Influenza A Code(s): J10.1 - FLU DUE TO OTH IDENT INFLUENZA VIRUS W OTH RESP MANIFEST (2) Pneumonia Code(s): J18.9 - PNEUMONIA, UNSPECIFIED ORGANISM Qualifiers: Pneumonia type: due to unspecified organism Laterality: bilateral Lung location: lower lobe of lung Qualified Code(s): J18.1 - Lobar pneumonia, unspecified organism (3) Polysubstance abuse Code(s): F19.10 - OTHER PSYCHOACTIVE SUBSTANCE ABUSE, UNCOMPLICATED (4) Bipolar II disorder Code(s): F31.81 - BIPOLAR II DISORDER
[2018-11-17] MEDS: QUEtiapine FUMARATE 100 MG TABLET (FP) PO SCH (21:57)
[2018-11-17] MEDS: traZODone HCL 50 MG TABLET (FP) PO SCH (21:57)
[2018-11-18] MEDS: HEPARIN NA (PORCINE) 5,000 UNITS/ML 1ML VIAL SQ SCH ×3 (05:10→22:08)
--- NOTE | 2018-11-18 08:13 | PN ---
Physical Exam: SUBJECTIVE: Patient seen and examined, states that has improved but still has productive cough which has significantly improved, states that body ache has improved OBJECTIVE: Vital Signs Period Temp Pulse Resp BP Sys/Escobar Pulse Ox Last 24 Hr 98.0 F-98.5 F 62-73 18-20 110-120/69-76 96-97 in no distress, talks in full sentences with no use of accessory muscles, MMM CVS:S1S2 Lung: initially has mild expiratory wheezing which improved after chest PT and coughing up , white clear Abd:bs+ NT/ND ext: No edema Laboratory Results - last 24 hr 11/17/18 11/17/18 06:30 06:30 WBC 3.3 L RBC 3.58 L Hgb 11.3 Hct 31.7 L MCV 88.7 MCH 31.6 MCHC 35.6 RDW 13.4 Plt Count 197 MPV 8.0 Sodium 138 Potassium 4.3 Chloride 109 H Carbon Dioxide 24 Anion Gap 4 L BUN 11 Creatinine 0.5 L Creat Clearance w eGFR 131.69 Random Glucose 85 Calcium 7.6 L Total Bilirubin 0.3 AST 16 ALT 28 Alkaline Phosphatase 41 L Total Protein 5.6 L Albumin 2.6 L Active Medications Generic Name Dose Route Start Last Admin Trade Name Freq PRN Reason Stop Dose Admin Acetaminophen 650 mg 11/14/18 13:27 11/14/18 22:42 Tylenol - PO 650 mg Q4H PRN Administration FEVER Albuterol Sulfate 1 amp 11/14/18 13:27 11/16/18 11:45 Ventolin 0.083% Nebulizer Soln - NEB 1 amp Q4H PRN Administration SHORT OF BREATH/WHEEZING Benzocaine/Menthol 1 each 11/15/18 12:13 11/15/18 14:47 Cepacol Lozenge - MM 1 each Q4H PRN Administration SORE THROAT Citalopram Hydrobromide 20 mg 11/15/18 10:00 11/17/18 10:26 Celexa - PO 20 mg DAILY DEANDRE Administration Guaifenesin 10 ml 11/15/18 12:25 11/17/18 10:26 Robitussin - PO 10 ml Q8H PRN Administration COUGH Haloperidol 5 mg 11/14/18 13:32 Haldol - PO Q8H PRN AGITATION Heparin Sodium (Porcine) 5,000 unit 11/14/18 22:00 11/18/18 05:10 Heparin - SQ 5,000 unit TID DEANDRE Administration Hydroxyzine Pamoate 50 mg 11/14/18 13:32 11/17/18 10:28 Vistaril - PO 50 mg Q8H PRN Administration ANXIETY Sodium Chloride 1,000 mls @ 83 mls/hr 11/14/18 13:30 11/17/18 06:09 Normal Saline - IV 83 mls/hr ASDIR DEANDRE Administration Ceftriaxone Sodium 2 gm/ 100 mls @ 100 mls/hr 11/15/18 10:00 11/17/18 10:25 Dextrose IVPB 100 mls/hr DAILY DEANDRE Administration Protocol Methocarbamol 1,000 mg 11/14/18 16:57 11/17/18 10:26 Robaxin - PO 1,000 mg Q6H PRN Administration BACK PAIN Nicotine Polacrilex 2 mg 11/14/18 13:31 Nicorette Gum - BUC Q2H PRN NICOTINE REPLACEMENT RX Ondansetron HCl 4 mg 11/14/18 13:27 Zofran Injection IVPUSH Q6H PRN NAUSEA Oseltamivir Phosphate 75 mg 11/14/18 22:00 11/17/18 21:57 Tamiflu - PO 11/19/18 21:59 75 mg BID DEANDRE Administration Quetiapine Fumarate 100 mg 11/14/18 22:00 11/17/18 21:57 Seroquel - PO 100 mg HS DEANDRE Administration Trazodone HCl 150 mg 11/14/18 22:00 11/17/18 21:57 Desyrel - PO 150 mg HS DEANDRE Administration ASSESSMENT/PLAN: 47 year old woman with a history of bipolar disorder, polysubstance abuse, OA, recent psychiatric admission who presented to the ED from [facility] because of fever, cough, chills, and myalgias found to have FLU A positive swab and RLL PNA. Sepsis in the setting of influenza and possible PNA with R basliar infiltrates: Has improved, been afebrile,, VS stable, no need for O2 at this time S/P ID evaluation: Vancomycin was DCed ON Ceftraixone at this time for possibel PNA, with plan to C /W Augmentin for the rest of total of 7 days on DC. continue rocephin/tamiflu #4 droplet isolation Continuous polysubstance abuse: completed detox at [facility] and interested in their inpatient program. will need to be off isolation precautions before able to return, has nicotine patch on bipolar disorder- cont home medications DVT ppx- hep sq Low ALbumin levels, can be in the setting of acute infection, rest of the liver tests WNL, is obese and less likely to be malnourished, will get nutrition consult of Tuesday as well as further evaluation of liver tests when not septic any more. FC Diet: regular Visit type - Emergency Visit Emergency Visit: Yes ED Registration Date: 11/14/18 Care time: The patient presented to the Emergency Department on the above date and was hospitalized for further evaluation of their emergent condition. - New Patient This patient is new to me today: Yes Date on this admission: 11/18/18 - Critical Care Critical Care patient: No - Discharge Referral Referred to [facility] Med P.C.: No
[2018-11-18] MEDS ORDERED: DEXTROSE 5%-WATER 100 ML IVPB ONE (10:04)
[2018-11-18] MEDS ORDERED: PT OWN MED DRAWER 7, Y5N ONE ×2 (10:04→18:01)
[2018-11-18] MEDS: CITALOPRAM HYDROBROMIDE 20 MG TABLET (FP) PO SCH (10:06)
[2018-11-18] MEDS: CEFTRIAXONE 2 GM in DEXTROSE 5%-WATER 100 ML IVPB SCH (10:06)
[2018-11-18] MEDS: METHOCARBAMOL 500 MG TABLET PO PRN (10:06)
[2018-11-18] MEDS: OSELTAMIVIR PHOSPHATE 75 MG CAPSULE PO SCH ×2 (10:06→22:09)
[2018-11-18] MEDS: guaiFENesin 200 MG/10 ML 10 ML UNIT-DOSE CUPS PO PRN (10:06)
[2018-11-18] MEDS: SODIUM CHLORIDE 1,000 ML IV SCH ×2 (17:53→22:08)
[2018-11-18] MEDS: hydrOXYzine PAMOATE 50 MG CAPSULE (FP) PO PRN (17:53)
[2018-11-18] MEDS: traZODone HCL 50 MG TABLET (FP) PO SCH (22:08)
[2018-11-18] MEDS: QUEtiapine FUMARATE 100 MG TABLET (FP) PO SCH (22:09)
[2018-11-19] MEDS: HEPARIN NA (PORCINE) 5,000 UNITS/ML 1ML VIAL SQ SCH ×3 (06:49→22:26)
[2018-11-19] MEDS ORDERED: DEXTROSE 5%-WATER 100 ML IVPB ONE (10:38)
[2018-11-19] MEDS ORDERED: PT OWN MED DRAWER 7, Y5N ONE ×2 (10:38→20:05)
[2018-11-19] MEDS: guaiFENesin 200 MG/10 ML 10 ML UNIT-DOSE CUPS PO PRN (10:45)
[2018-11-19] MEDS: METHOCARBAMOL 500 MG TABLET PO PRN ×2 (10:45→22:26)
[2018-11-19] MEDS: CEFTRIAXONE 2 GM in DEXTROSE 5%-WATER 100 ML IVPB SCH (10:45)
[2018-11-19] MEDS: CITALOPRAM HYDROBROMIDE 20 MG TABLET (FP) PO SCH (10:45)
[2018-11-19] MEDS: OSELTAMIVIR PHOSPHATE 75 MG CAPSULE PO SCH (10:45)
[2018-11-19] MEDS: hydrOXYzine PAMOATE 50 MG CAPSULE (FP) PO PRN ×2 (10:45→22:27)
--- NOTE | 2018-11-19 15:13 | PN ---
Physical Exam: SUBJECTIVE: Patient seen and examined OBJECTIVE: Vital Signs Period Temp Pulse Resp BP Sys/Escobar Pulse Ox Last 24 Hr 97.8 F-97.8 F 68-68 20-20 112-126/68-72 98 She is in no distress at this time MMM No ocular discharge No nasal discharge CVS:S1S2 CTAB, has good air movement, Abd:BS+ , nt/nd EXT: no edema Active Medications Generic Name Dose Route Start Last Admin Trade Name Freq PRN Reason Stop Dose Admin Acetaminophen 650 mg 11/14/18 13:27 11/14/18 22:42 Tylenol - PO 650 mg Q4H PRN Administration FEVER Benzocaine/Menthol 1 each 11/15/18 12:13 11/15/18 14:47 Cepacol Lozenge - MM 1 each Q4H PRN Administration SORE THROAT Citalopram Hydrobromide 20 mg 11/15/18 10:00 11/19/18 10:45 Celexa - PO 20 mg DAILY DEANDRE Administration Guaifenesin 10 ml 11/15/18 12:25 11/19/18 10:45 Robitussin - PO 10 ml Q8H PRN Administration COUGH Haloperidol 5 mg 11/14/18 13:32 Haldol - PO Q8H PRN AGITATION Heparin Sodium (Porcine) 5,000 unit 11/14/18 22:00 11/19/18 14:51 Heparin - SQ 5,000 unit TID DEANDRE Administration Hydroxyzine Pamoate 50 mg 11/14/18 13:32 11/19/18 10:45 Vistaril - PO 50 mg Q8H PRN Administration ANXIETY Ceftriaxone Sodium 2 gm/ 100 mls @ 100 mls/hr 11/15/18 10:00 11/19/18 10:45 Dextrose IVPB 100 mls/hr DAILY DEANDRE Administration Protocol Methocarbamol 1,000 mg 11/14/18 16:57 11/19/18 10:45 Robaxin - PO 1,000 mg Q6H PRN Administration BACK PAIN Nicotine Polacrilex 2 mg 11/14/18 13:31 Nicorette Gum - BUC Q2H PRN NICOTINE REPLACEMENT RX Ondansetron HCl 4 mg 11/14/18 13:27 Zofran Injection IVPUSH Q6H PRN NAUSEA Oseltamivir Phosphate 75 mg 11/14/18 22:00 11/19/18 10:45 Tamiflu - PO 11/19/18 21:59 75 mg BID DEANDRE Administration Quetiapine Fumarate 100 mg 11/14/18 22:00 11/18/18 22:09 Seroquel - PO 100 mg HS DEANDRE Administration Trazodone HCl 150 mg 11/14/18 22:00 11/18/18 22:08 Desyrel - PO 150 mg HS DEANDRE Administration ASSESSMENT/PLAN: 47 year old woman with a history of bipolar disorder, polysubstance abuse, OA, recent psychiatric admission who presented to the ED from [facility] because of fever, cough, chills, and myalgias found to have FLU A positive swab and RLL PNA. Sepsis in the setting of influenza and possible PNA with R basliar infiltrates: Has improved, been afebrile,, VS stable, no need for O2 at this time S/P ID evaluation: Vancomycin was DCed ON Ceftraixone at this time for possible PNA, with plan to C /W Augmentin for the rest of total of 7 days on DC. continue rocephin/tamiflu #5 droplet isolation Continuous polysubstance abuse: completed detox at [facility] and interested in their inpatient program. will need to be off isolation precautions before able to return, has nicotine patch on bipolar disorder- cont home medications DVT ppx- hep sq Low Albumin levels, can be in the setting of acute infection, rest of the liver tests WNL, is obese and less likely to be malnourished, will get nutrition consult of Tuesday as well as further evaluation of liver tests when not septic any more. FC Diet: regular Visit type - Emergency Visit Emergency Visit: Yes ED Registration Date: 11/14/18 Care time: The patient presented to the Emergency Department on the above date and was hospitalized for further evaluation of their emergent condition. - New Patient This patient is new to me today: No - Critical Care Critical Care patient: No - Discharge Referral Referred to [facility] Med P.C.: No
[2018-11-19] MEDS: QUEtiapine FUMARATE 100 MG TABLET (FP) PO SCH (22:26)
[2018-11-19] MEDS: traZODone HCL 50 MG TABLET (FP) PO SCH (22:26)
[2018-11-20] MEDS: HEPARIN NA (PORCINE) 5,000 UNITS/ML 1ML VIAL SQ SCH ×2 (06:39→14:27)
[2018-11-20] MEDS ORDERED: DEXTROSE 5%-WATER 100 ML IVPB ONE (10:00)
[2018-11-20] MEDS: CEFTRIAXONE 2 GM in DEXTROSE 5%-WATER 100 ML IVPB SCH (10:04)
[2018-11-20] MEDS: CITALOPRAM HYDROBROMIDE 20 MG TABLET (FP) PO SCH (10:04)
--- NOTE | 2018-11-20 12:16 | PN ---
Progress Note, Physician Chief Complaint: c/o cough - Current Medication List Current Medications: Active Medications Acetaminophen (Tylenol -) 650 mg PO Q4H PRN PRN Reason: FEVER Last Admin: 11/14/18 22:42 Dose: 650 mg Benzocaine/Menthol (Cepacol Lozenge -) 1 each MM Q4H PRN PRN Reason: SORE THROAT Last Admin: 11/15/18 14:47 Dose: 1 each Citalopram Hydrobromide (Celexa -) 20 mg PO DAILY [facility] Last Admin: 11/20/18 10:04 Dose: 20 mg Guaifenesin (Robitussin -) 10 ml PO Q8H PRN PRN Reason: COUGH Last Admin: 11/19/18 10:45 Dose: 10 ml Haloperidol (Haldol -) 5 mg PO Q8H PRN PRN Reason: AGITATION Heparin Sodium (Porcine) (Heparin -) 5,000 unit SQ TID [facility] Last Admin: 11/20/18 06:39 Dose: 5,000 unit Hydroxyzine Pamoate (Vistaril -) 50 mg PO Q8H PRN PRN Reason: ANXIETY Last Admin: 11/19/18 22:27 Dose: 50 mg Ceftriaxone Sodium 2 gm/ (Dextrose) 100 mls @ 100 mls/hr IVPB DAILY [facility]; Protocol Last Admin: 11/20/18 10:04 Dose: 100 mls/hr Methocarbamol (Robaxin -) 1,000 mg PO Q6H PRN PRN Reason: BACK PAIN Last Admin: 11/19/18 22:26 Dose: 1,000 mg Nicotine Polacrilex (Nicorette Gum -) 2 mg BUC Q2H PRN PRN Reason: NICOTINE REPLACEMENT RX Ondansetron HCl (Zofran Injection) 4 mg IVPUSH Q6H PRN PRN Reason: NAUSEA Quetiapine Fumarate (Seroquel -) 100 mg PO HS [facility] Last Admin: 11/19/18 22:26 Dose: 100 mg Trazodone HCl (Desyrel -) 150 mg PO HS [facility] Last Admin: 11/19/18 22:26 Dose: 150 mg - Objective Vital Signs: Vital Signs Temperature 97.9 F 11/20/18 06:00 Pulse Rate 64 11/20/18 06:00 Respiratory Rate 20 11/20/18 06:00 Blood Pressure 135/88 11/20/18 06:00 O2 Sat by Pulse Oximetry (%) 96 11/19/18 21:00 Not in distress hemodynamically stable and afebrile HEENT: Mm moist, no anemia, PERRLA EOMI NECK: no JVD No Bruit CHEST: CTA B/l CVS: s1S2 r no m/g/r ABD: No distention, non tender BS + EXT: No edema feet, no calf tenderness CASE HARDENER: AOX3 non focal Labs: CBC, BMP 11/17/18 06:30 11/17/18 06:30 Problem List - Problems (1) Pneumonia Assessment/Plan: Post viral MSSA on Ceftriaxone will discuss with ID for PO abx cont tamiflu Code(s): J18.9 - PNEUMONIA, UNSPECIFIED ORGANISM Qualifiers: Pneumonia type: due to unspecified organism Laterality: bilateral Lung location: lower lobe of lung Qualified Code(s): J18.1 - Lobar pneumonia, unspecified organism (2) Bipolar II disorder Assessment/Plan: Cont home meds at present no acute decompensation Code(s): F31.81 - BIPOLAR II DISORDER (3) Polysubstance abuse Assessment/Plan: Out patient F/U Code(s): F19.10 - OTHER PSYCHOACTIVE SUBSTANCE ABUSE, UNCOMPLICATED (4) Influenza A Assessment/Plan: On Tamiflu Code(s): J10.1 - FLU DUE TO OTH IDENT INFLUENZA VIRUS W OTH RESP MANIFEST
[2018-11-20] MEDS ORDERED: ALBUTEROL SO4 8 GM HFA INHALER IH PRN (12:45)
--- NOTE | 2018-11-20 12:56 | DS ---
Physical Examination Vital Signs: Vital Signs Temperature 97.9 F 11/20/18 06:00 Pulse Rate 64 11/20/18 06:00 Respiratory Rate 20 11/20/18 06:00 Blood Pressure 135/88 11/20/18 06:00 O2 Sat by Pulse Oximetry (%) 96 11/19/18 21:00 Not in distress hemodynamically stable and afebrile HEENT: Mm moist, no anemia, PERRLA EOMI NECK: no JVD No Bruit CHEST: CTA B/l CVS: s1S2 r no m/g/r ABD: No distention, non tender BS + EXT: No edema feet, no calf tenderness LEGAL INSTRUMENTS EXAMINER: AOX3 non focal Labs: CBC, BMP 11/17/18 06:30 11/17/18 06:30 CXR: RT LL Infiltrate Microbiology Sputum Culture; MSSA Discharge Summary Reason For Visit: INFLUENZA/PNEUMONIA Current Active Problems Influenza A (Acute) Pneumonia (Acute) Polysubstance abuse (Acute) Alcohol dependence with uncomplicated withdrawal (Chronic) Bipolar II disorder (Chronic) Cocaine dependence (Chronic) Nicotine dependence (Chronic) Hospital Course: 47 yrs old with PSA, Bipolar admitted at [facility] for Detox transferred with c/ o cough fever w/u shows Rt LL infiltrate and sputum culture Grew MSSA patient recived 5 days PO abx and Tamiflu Id consulted recommonded to switch to Po Cephalexine for 5 days more, patient is afebrile, hemodynamically stable is being Dc to [facility] . Condition: Stable - Instructions Disposition: [facility]ISON [facility] - Home Medications Comprehensive Discharge Medication List: Ambulatory Orders Chlorpromazine [Thorazine -] 50 mg PO BID PRN 11/09/18 Citalopram Hydrobromide [Celexa -] 20 mg PO DAILY 11/09/18 Diphenhydramine [Benadryl Capsule -] 50 mg PO TID PRN 11/09/18 Haloperidol [Haldol -] 5 mg PO TID PRN 11/09/18 Quetiapine Fumarate [Seroquel] 100 tab PO HS 11/09/18 Trazodone HCl 150 mg PO HS 11/09/18 hydrOXYzine HCL 50 mg PO TID PRN 11/09/18 Acetaminophen [Tylenol .Regular Strength -] 650 mg PO Q4H PRN tablet 11/20/18 Albuterol 0.083% Nebulizer Patricia [Ventolin 0.083% Nebulizer Soln -] 1 amp NEB Q4H PRN amp 11/20/18 Albuterol Sulfate Inhaler - [Ventolin HFA Inhaler -] 2 puff IH Q4H PRN inhaler 11/20/18 Cephalexin Monohydrate [Keflex -] 500 mg PO BID #10 capsule 11/20/18 Guaifenesin [Robitussin -] 10 ml PO Q8H PRN cup 11/20/18 Methocarbamol [Robaxin -] 1,000 mg PO Q6H PRN tablet 11/20/18 Nicotine Polacrilex [Nicorelief -] 2 mg BUC Q2H PRN gum 11/20/18
[2018-11-20 14:19] VITALS: BP 145/92; PULSE 67; TEMP 98
[2018-11-20] MEDS ORDERED: PT OWN MED DRAWER 7, Y5N ONE (14:23)
[2018-11-20] MEDS: METHOCARBAMOL 500 MG TABLET PO PRN (14:27)
[2018-11-20] MEDS ORDERED: CEPHALEXIN MONOHYDRATE 500 MG CAPSULE (UD) PO SCH (22:00)
== END 2018-11-20 15:46 | disposition other institution (70) | DRG 720 ==
LOC: JER 09:35 → JERBED 12:42 → J8W 22:21
PROVIDERS: ADMIT Internal Medicine; ATTEND Internal Medicine
DX: A41.89 Other specified sepsis (principal); F31.9 Bipolar disorder, unspecified; F10.20 Alcohol dependence, uncomplicated; F17.210 Nicotine dependence, cigarettes, uncomplicated; Z68.31 Body mass index [BMI] 31.0-31.9, adult; K21.9 Gastro-esophageal reflux disease without esophagitis; E66.9 Obesity, unspecified; F14.20 Cocaine dependence, uncomplicated; E88.09 Other disorders of plasma-protein metabolism, not elsewhere classified; J09.X1 Influenza due to identified novel influenza A virus with pneumonia
CPT/HCPCS: 36415; 71046-TC-FY; 80048; 80053; 81003; 83735; 84100; 84703; 85025; 85027; 87040; 87070; 87186; 87205; 87804; 87899; 93005; 93010; 99285-25; G0480; J1644; J7030

== ENCOUNTER 2018-11-20 16:13 | Inpatient (IN) | payer OTHER ==
[2018-11-20 18:09] VITALS: BMI 31.1
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
[2018-11-20] MEDS ORDERED: ALBUTEROL SO4 0.083% IH SOL 2.5 MG/3 ML VIAL.NEB. NEB PRN (18:46)
[2018-11-20] MEDS ORDERED: MAGNESIUM HYDROX 2400MG/30ML ORAL SUSPENSION 30 ML CUP PO PRN (18:49)
[2018-11-20] MEDS ORDERED: P-EPHED 60MG/TRIPROLIDI 2.5MG TABLET PO PRN (18:49)
[2018-11-20] MEDS ORDERED: MAGNESIUM CITRATE 300 ML BOTTLE PO PRN (18:49)
[2018-11-20] MEDS ORDERED: LOPERAMIDE HCL 2 MG CAPSULE PO PRN (18:49)
[2018-11-20] MEDS ORDERED: MENTHOL/PHENOL 1 EACH UD MM PRN (18:49)
[2018-11-20] MEDS: MELATONIN 5 MG TABLETS PO PRN (21:24)
[2018-11-20] MEDS: CEPHALEXIN MONOHYDRATE 500 MG CAPSULE (UD) PO SCH (21:24)
[2018-11-20] MEDS: MONTELUKAST NA 10 MG TABLET PO SCH (21:24)
[2018-11-20] MEDS: THIAMINE HCL 100 MG TABLET (FP) PO SCH (21:24)
[2018-11-20 23:19] LABS: EPI CELLS 2.3 /HPF (0-5/HPF); PH,URINE 5.5 (5.0-8.0); URINE APPEARANCE CLEAR; URINE BACTERIA 0.8 /hpf (NEGATIVE); URINE BILIRUBIN NEGATIVE (NEGATIVE); URINE CASTS 1 /lpf (0-8); URINE COLOR YELLOW; URINE GLUCOSE (UA) NEGATIVE (NEGATIVE); URINE KETONE NEGATIVE (NEGATIVE); URINE LEUK ESTERASE TRACE (NEGATIVE); URINE NITRITE NEGATIVE (NEGATIVE); URINE PROTEIN NEGATIVE (NEGATIVE); URINE RBC 1 /hpf (0-4); URINE UROBILINOGEN 0.2 mg/dL (0.2-1.0); URINE WBC 3 /hpf (0-5)
[2018-11-21] MEDS: NICOTINE 14 MG/24 HOURS TOPICAL PATCH TD SCH (09:41)
[2018-11-21] MEDS: PRENATAL VITAMINS W/ FOLIC ACID TABLET (FP) PO SCH (09:42)
[2018-11-21] MEDS: CEPHALEXIN MONOHYDRATE 500 MG CAPSULE (UD) PO SCH ×2 (09:42→21:04)
[2018-11-21] MEDS: LIDOCAINE 5% TOPICAL PATCH TP SCH (09:42)
[2018-11-21] MEDS: NICOTINE POLACRILEX 2 MG GUM BC PRN ×2 (09:43→17:51)
[2018-11-21 10:13] LABS: HEMATOCRIT 37.2 % (32.4-45.2); HEMOGLOBIN 13.1 GM/dL (10.7-15.3); MCH 31.3 pg (25.7-33.7); MCHC 35.3 g/dl (32.0-36.0); MEAN CELL VOLUME 88.7 fl (80-96); PLATELET COUNT 321 K/MM3 (134-434); RBC 4.19 M/mm3 (3.60-5.2); WHITE BLOOD COUNT 5.7 K/mm3 (4.0-10.0)
[2018-11-21 10:14] LABS: ALBUMIN 3.5 g/dl (3.4-5.0); ALK PHOS 59 U/L (45-117); ANION GAP 5 MMOL/L (8-16); BILIRUBIN,TOTAL 0.8 mg/dL (0.2-1); BLOOD UREA NITROGEN 12 mg/dL (7-18); CHLORIDE 106 mmol/L (98-107); CO2 29 mmol/L (21-32); CREATININE 0.8 mg/dL (0.55-1.3); GLUCOSE,RANDOM 100 mg/dL (74-106); POTASSIUM 4.5 mmol/L (3.5-5.1); SGOT/AST 125 U/L (15-37); SGPT/ALT 125 U/L (13-61); SODIUM 140 mmol/L (136-145)
[2018-11-21] MEDS ORDERED: PT OWN MED DRAWER 7, Y5N ONE (10:27)
--- NOTE | 2018-11-21 13:39 | PN ---
[facility] Progress Note Note: C/O PAIN ON LOWER BACK LEFT AND RIGHT. PT REPORTS SHE HAS HX BURSITIS AND USES CANE FOR AMBULATION. Vital Signs - 24 hr 11/20/18 11/21/18 11/21/18 18:02 00:30 03:30 Temperature Pulse Rate 65 Respiratory 18 18 18 Rate Blood Pressure 116/86 11/21/18 06:55 Temperature 97.6 F Pulse Rate 60 Respiratory 16 Rate Blood Pressure 132/88 Laboratory Tests 11/20/18 11/21/18 11/21/18 19:10 08:10 08:10 WBC 5.7 RBC 4.19 Hgb 13.1 Hct 37.2 D MCV 88.7 MCH 31.3 MCHC 35.3 RDW 14.0 Plt Count 321 D MPV 8.0 Sodium 140 Potassium 4.5 Chloride 106 Carbon Dioxide 29 Anion Gap 5 L BUN 12 Creatinine 0.8 Creat Clearance w eGFR 76.56 Random Glucose 100 Calcium 9.0 Total Bilirubin 0.8 AST 125 H ALT 125 H Alkaline Phosphatase 59 Total Protein 7.0 Albumin 3.5 Urine Color Yellow Urine Appearance Clear Urine pH 5.5 Ur Specific [place] 1.014 Urine Protein Negative Urine Glucose (UA) Negative Urine Ketones Negative Urine Blood Trace Urine Nitrite Negative Urine Bilirubin Negative Urine Urobilinogen 0.2 Ur Leukocyte Esterase Trace Urine WBC (Auto) 3 Urine RBC (Auto) 1 Urine Casts (Auto) 1 U Epithel Cells (Auto) 2.3 Urine Bacteria (Auto) 0.8 LABS NOTED PLAN:LIDOCAINE PATCH DIRECTED ON ROBAXIN 1000 MG PO Q6H PRN(HOME MED) ANALGESIC BALM DIRECTED REPEAT CMP
[2018-11-21] MEDS: METHOCARBAMOL 500 MG TABLET PO PRN (17:51)
[2018-11-21] MEDS: THIAMINE HCL 100 MG TABLET (FP) PO SCH (21:04)
[2018-11-21] MEDS: MONTELUKAST NA 10 MG TABLET PO SCH (21:04)
[2018-11-21] MEDS: hydrOXYzine PAMOATE 25 MG CAPSULE (FP) PO PRN (21:04)
[2018-11-21] MEDS: METHYL SALICYLATE/MENTHOL OINT 30 GM TUBE TP SCH (21:06)
[2018-11-21] MEDS: LIDOCAINE PATCH REMOVAL MC SCH (21:06)
[2018-11-21] MEDS ORDERED: METHOCARBAMOL 500 MG TABLET PO SCH (22:00)
[2018-11-22] MEDS: PRENATAL VITAMINS W/ FOLIC ACID TABLET (FP) PO SCH (09:38)
[2018-11-22] MEDS: LIDOCAINE 5% TOPICAL PATCH TP SCH (09:38)
[2018-11-22] MEDS: CEPHALEXIN MONOHYDRATE 500 MG CAPSULE (UD) PO SCH ×2 (09:38→21:11)
[2018-11-22] MEDS: NICOTINE 14 MG/24 HOURS TOPICAL PATCH TD SCH (09:38)
[2018-11-22] MEDS: NICOTINE POLACRILEX 2 MG GUM BC PRN ×2 (09:39→12:37)
[2018-11-22] MEDS: METHOCARBAMOL 500 MG TABLET PO PRN ×2 (09:40→21:10)
[2018-11-22] MEDS: hydrOXYzine PAMOATE 25 MG CAPSULE (FP) PO PRN ×2 (12:59→21:10)
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
--- NOTE | 2018-11-22 15:42 | CONSULT ---
[facility] Psychiatric Consult - Data Date of interview: 11/22/18
[2018-11-22] MEDS: MONTELUKAST NA 10 MG TABLET PO SCH (21:10)
[2018-11-22] MEDS: THIAMINE HCL 100 MG TABLET (FP) PO SCH (21:10)
[2018-11-22] MEDS: LIDOCAINE PATCH REMOVAL MC SCH (21:11)
[2018-11-22] MEDS: traZODone HCL 100 MG TABLET (FP) PO SCH (21:12)
[2018-11-22] MEDS: QUEtiapine FUMARATE 100 MG TABLET (FP) PO SCH (21:12)
[2018-11-22] MEDS: METHYL SALICYLATE/MENTHOL OINT 30 GM TUBE TP SCH (21:13)
[2018-11-22] MEDS ORDERED: QUEtiapine FUMARATE 100 MG TABLET (FP) PO SCH (22:00)
[2018-11-23] MEDS: CEPHALEXIN MONOHYDRATE 500 MG CAPSULE (UD) PO SCH ×2 (09:33→21:22)
[2018-11-23] MEDS: LIDOCAINE 5% TOPICAL PATCH TP SCH (09:33)
[2018-11-23] MEDS: CITALOPRAM HYDROBROMIDE 20 MG TABLET (FP) PO SCH (09:33)
[2018-11-23] MEDS: NICOTINE 14 MG/24 HOURS TOPICAL PATCH TD SCH (09:34)
[2018-11-23] MEDS: QUEtiapine FUMARATE 50 MG TABLET PO SCH (09:34)
[2018-11-23] MEDS: PRENATAL VITAMINS W/ FOLIC ACID TABLET (FP) PO SCH (09:34)
[2018-11-23] MEDS: hydrOXYzine PAMOATE 25 MG CAPSULE (FP) PO PRN ×2 (09:36→21:22)
[2018-11-23] MEDS: METHOCARBAMOL 500 MG TABLET PO PRN ×2 (09:36→21:23)
[2018-11-23] MEDS: NICOTINE POLACRILEX 2 MG GUM BC PRN (09:36)
[2018-11-23] MEDS ORDERED: ASPIRIN 81 MG CHEWABLE TABLETS PO ONE (11:24)
[2018-11-23] MEDS: MAG HYDROX/AL HYDROX/SIMETH 30 ML UNIT-DOSE CUP PO PRN (11:25)
--- NOTE | 2018-11-23 11:44 | PN ---
S Progress Note (SOAP) Subjective: C/o sharp chest pain, mid sternal radiating to the left,difficulty breathing, pain increases. States had it before when in detox, when she was diagnosed with the flu, prior hx of PNA before admission. No previous hx of cardiac disease or hypertension. Chest pain not relieved with mylanta; increased pain with coughing. Denies taking any medications or substances other than those prescribed and administered by the nurse. Objective: 11/23/18 11:44 EKG done, shows septal wall infarct of undetermined age, NSR, left atrial enlargement VS are reflective of patient's baseline, Heart sounds regular, correlates with radial pulse. Lungs clear. Vital Signs (72 hours) 11/20/18 11/21/18 11/21/18 18:02 00:30 03:30 Temperature Pulse Rate 65 Respiratory 18 18 18 Rate Blood Pressure 116/86 O2 Sat by Pulse Oximetry (%) 11/21/18 11/22/18 11/22/18 06:55 00:30 06:48 Temperature 97.6 F 98.1 F Pulse Rate 60 62 Respiratory 16 16 18 Rate Blood Pressure 132/88 142/91 O2 Sat by Pulse Oximetry (%) 11/23/18 11/23/18 11/23/18 00:30 03:30 06:56 Temperature 98.0 F Pulse Rate 76 Respiratory 16 16 18 Rate Blood Pressure 116/75 O2 Sat by Pulse Oximetry (%) 11/23/18 11/23/18 11:25 11:35 Temperature 97.4 F L Pulse Rate 66 66 Respiratory 20 20 Rate Blood Pressure 135/86 135/86 O2 Sat by Pulse 100 Oximetry (%) 11/23/18 11:45 11/23/18 11:46 11/23/18 11:54 11/23/18 12:10 Assessment: 11/23/18 11:55 Myocardial infarct vs. pneumonia 11/23/18 12:11 Plan: Given mylanta-with no relief,, ASA-81 mg, EMS activated. Patient transported to [facility] for evaluation. Unable to give report to receiving provider. Several attempts made. RN was able to give report to receiving RN at [facility].
--- NOTE | 2018-11-23 12:17 | EKG ---
Test Reason : Blood Pressure : / mmHG Vent. Rate : 071 BPM Atrial Rate : 071 BPM P-R Int : 166 ms QRS Dur : 088 ms QT Int : 376 ms P-R-T Axes : 058 049 040 degrees QTc Int : 408 ms NORMAL SINUS RHYTHM POSSIBLE LEFT ATRIAL ENLARGEMENT SEPTAL INFARCT , AGE UNDETERMINED ABNORMAL ECG WHEN COMPARED WITH ECG OF 15-NOV-2018 08:46, SEPTAL INFARCT IS NOW PRESENT Confirmed by APRIL CASTANEDA, MELINDA ([id number]) on 11/23/2018 12:17:10 PM Referred By: Confirmed By:MELINDA CHEN MD
--- NOTE | 2018-11-23 18:45 | PN ---
S Progress Note Note: Patient medically cleared at [facility] after evaluation for chest pain, neg tropinin and neg for PE. Patient will return to continue rehab tx
[2018-11-23] MEDS: THIAMINE HCL 100 MG TABLET (FP) PO SCH (21:22)
[2018-11-23] MEDS: MONTELUKAST NA 10 MG TABLET PO SCH (21:22)
[2018-11-23] MEDS: traZODone HCL 100 MG TABLET (FP) PO SCH (21:22)
[2018-11-23] MEDS: QUEtiapine FUMARATE 100 MG TABLET (FP) PO SCH (21:22)
[2018-11-23] MEDS: LIDOCAINE PATCH REMOVAL MC SCH (21:23)
[2018-11-23] MEDS: METHYL SALICYLATE/MENTHOL OINT 30 GM TUBE TP SCH (21:23)
[2018-11-23] MEDS ORDERED: PT OWN MED DRAWER 7, Y5N ONE (23:00)
[2018-11-24] MEDS: guaiFENesin 200 MG/10 ML 10 ML UNIT-DOSE CUPS PO PRN ×2 (09:42→17:51)
[2018-11-24] MEDS: hydrOXYzine PAMOATE 25 MG CAPSULE (FP) PO PRN ×2 (09:42→17:51)
[2018-11-24] MEDS: PRENATAL VITAMINS W/ FOLIC ACID TABLET (FP) PO SCH (09:42)
[2018-11-24] MEDS: CEPHALEXIN MONOHYDRATE 500 MG CAPSULE (UD) PO SCH ×2 (09:42→21:16)
[2018-11-24] MEDS: LIDOCAINE 5% TOPICAL PATCH TP SCH (09:42)
[2018-11-24] MEDS: QUEtiapine FUMARATE 50 MG TABLET PO SCH (09:42)
[2018-11-24] MEDS: CITALOPRAM HYDROBROMIDE 20 MG TABLET (FP) PO SCH (09:42)
[2018-11-24] MEDS: METHOCARBAMOL 500 MG TABLET PO PRN ×2 (09:42→17:50)
[2018-11-24] MEDS: NICOTINE 14 MG/24 HOURS TOPICAL PATCH TD SCH (09:45)
[2018-11-24 11:05] LABS: ALBUMIN 3.4 g/dl (3.4-5.0); ALK PHOS 53 U/L (45-117); ANION GAP 3 MMOL/L (8-16); BILIRUBIN,TOTAL 0.4 mg/dL (0.2-1); BLOOD UREA NITROGEN 17 mg/dL (7-18); CALCIUM 8.9 mg/dL (8.5-10.1); CHLORIDE 106 mmol/L (98-107); CO2 31 mmol/L (21-32); CREATININE 0.8 mg/dL (0.55-1.3); GLUCOSE,RANDOM 100 mg/dL (74-106); POTASSIUM 4.7 mmol/L (3.5-5.1); SGOT/AST 55 U/L (15-37); SGPT/ALT 126 U/L (13-61); SODIUM 140 mmol/L (136-145); TOT PROT 6.5 g/dl (6.4-8.2)
[2018-11-24] MEDS: NICOTINE POLACRILEX 2 MG GUM BC PRN (17:52)
[2018-11-24] MEDS: MONTELUKAST NA 10 MG TABLET PO SCH (21:15)
[2018-11-24] MEDS: QUEtiapine FUMARATE 100 MG TABLET (FP) PO SCH (21:15)
[2018-11-24] MEDS: traZODone HCL 100 MG TABLET (FP) PO SCH (21:15)
[2018-11-24] MEDS ORDERED: PT OWN MED DRAWER 7, Y5N ONE ×4 (21:18→22:17)
[2018-11-24] MEDS: METHYL SALICYLATE/MENTHOL OINT 30 GM TUBE TP SCH (22:54)
[2018-11-24] MEDS: THIAMINE HCL 100 MG TABLET (FP) PO SCH (22:55)
[2018-11-24] MEDS: LIDOCAINE PATCH REMOVAL MC SCH (22:56)
[2018-11-25] MEDS: CEPHALEXIN MONOHYDRATE 500 MG CAPSULE (UD) PO SCH (09:18)
[2018-11-25] MEDS: LIDOCAINE 5% TOPICAL PATCH TP SCH (09:18)
[2018-11-25] MEDS: CITALOPRAM HYDROBROMIDE 20 MG TABLET (FP) PO SCH (09:18)
[2018-11-25] MEDS: METHOCARBAMOL 500 MG TABLET PO PRN ×2 (09:19→15:33)
[2018-11-25] MEDS: PRENATAL VITAMINS W/ FOLIC ACID TABLET (FP) PO SCH (09:19)
[2018-11-25] MEDS: hydrOXYzine PAMOATE 25 MG CAPSULE (FP) PO PRN ×3 (09:19→18:36)
[2018-11-25] MEDS: NICOTINE 14 MG/24 HOURS TOPICAL PATCH TD SCH (09:19)
[2018-11-25] MEDS: QUEtiapine FUMARATE 50 MG TABLET PO SCH (09:19)
[2018-11-25] MEDS: NICOTINE POLACRILEX 2 MG GUM BC PRN ×3 (09:19→18:36)
[2018-11-25] MEDS: guaiFENesin 200 MG/10 ML 10 ML UNIT-DOSE CUPS PO PRN (14:48)
[2018-11-25] MEDS: LIDOCAINE PATCH REMOVAL MC SCH (20:59)
[2018-11-25] MEDS: THIAMINE HCL 100 MG TABLET (FP) PO SCH (20:59)
[2018-11-25] MEDS: traZODone HCL 100 MG TABLET (FP) PO SCH (20:59)
[2018-11-25] MEDS: QUEtiapine FUMARATE 100 MG TABLET (FP) PO SCH (20:59)
[2018-11-25] MEDS: METHYL SALICYLATE/MENTHOL OINT 30 GM TUBE TP SCH (20:59)
[2018-11-25] MEDS: MONTELUKAST NA 10 MG TABLET PO SCH (20:59)
[2018-11-25] MEDS: MELATONIN 5 MG TABLETS PO PRN (21:00)
[2018-11-25] MEDS ORDERED: PT OWN MED DRAWER 7, Y5N ONE (23:05)
[2018-11-26] MEDS: guaiFENesin 200 MG/10 ML 10 ML UNIT-DOSE CUPS PO PRN (09:44)
[2018-11-26] MEDS: PRENATAL VITAMINS W/ FOLIC ACID TABLET (FP) PO SCH (09:44)
[2018-11-26] MEDS: CITALOPRAM HYDROBROMIDE 20 MG TABLET (FP) PO SCH (09:44)
[2018-11-26] MEDS: hydrOXYzine PAMOATE 25 MG CAPSULE (FP) PO PRN ×2 (09:44→14:01)
[2018-11-26] MEDS: QUEtiapine FUMARATE 50 MG TABLET PO SCH (09:45)
[2018-11-26] MEDS: NICOTINE 14 MG/24 HOURS TOPICAL PATCH TD SCH (09:46)
[2018-11-26] MEDS: LIDOCAINE 5% TOPICAL PATCH TP SCH (09:46)
[2018-11-26] MEDS: NICOTINE POLACRILEX 2 MG GUM BC PRN ×2 (09:46→14:02)
[2018-11-26] MEDS: METHOCARBAMOL 500 MG TABLET PO PRN ×2 (11:56→18:00)
[2018-11-26] MEDS: ALBUTEROL SO4 8 GM HFA INHALER IH PRN (16:22)
[2018-11-26] MEDS ORDERED: PT OWN MED DRAWER 7, Y5N ONE ×2 (16:58→22:32)
[2018-11-26] MEDS: METHYL SALICYLATE/MENTHOL OINT 30 GM TUBE TP SCH (20:59)
[2018-11-26] MEDS: QUEtiapine FUMARATE 100 MG TABLET (FP) PO SCH (20:59)
[2018-11-26] MEDS: MELATONIN 5 MG TABLETS PO PRN (20:59)
[2018-11-26] MEDS: traZODone HCL 100 MG TABLET (FP) PO SCH (20:59)
[2018-11-26] MEDS: THIAMINE HCL 100 MG TABLET (FP) PO SCH (20:59)
[2018-11-26] MEDS: MONTELUKAST NA 10 MG TABLET PO SCH (20:59)
[2018-11-26] MEDS: LIDOCAINE PATCH REMOVAL MC SCH (20:59)
[2018-11-27] MEDS: PRENATAL VITAMINS W/ FOLIC ACID TABLET (FP) PO SCH (09:48)
[2018-11-27] MEDS: LIDOCAINE 5% TOPICAL PATCH TP SCH (09:48)
[2018-11-27] MEDS: CITALOPRAM HYDROBROMIDE 20 MG TABLET (FP) PO SCH (09:48)
[2018-11-27] MEDS: QUEtiapine FUMARATE 50 MG TABLET PO SCH (09:48)
[2018-11-27] MEDS: NICOTINE 14 MG/24 HOURS TOPICAL PATCH TD SCH (09:49)
[2018-11-27] MEDS: NICOTINE POLACRILEX 2 MG GUM BC PRN ×3 (09:50→16:09)
[2018-11-27] MEDS: METHOCARBAMOL 500 MG TABLET PO PRN ×2 (09:52→17:08)
[2018-11-27] MEDS: guaiFENesin 200 MG/10 ML 10 ML UNIT-DOSE CUPS PO PRN ×2 (09:52→21:02)
[2018-11-27] MEDS: ALBUTEROL SO4 8 GM HFA INHALER IH PRN (09:53)
[2018-11-27] MEDS: IBUPROFEN 400 MG TABLET (FP) PO PRN (13:01)
[2018-11-27] MEDS: hydrOXYzine PAMOATE 25 MG CAPSULE (FP) PO PRN ×3 (13:01→21:01)
[2018-11-27] MEDS ORDERED: PT OWN MED DRAWER 7, Y5N ONE (20:57)
[2018-11-27] MEDS: MELATONIN 5 MG TABLETS PO PRN (21:00)
[2018-11-27] MEDS: traZODone HCL 100 MG TABLET (FP) PO SCH (21:01)
[2018-11-27] MEDS: THIAMINE HCL 100 MG TABLET (FP) PO SCH (21:01)
[2018-11-27] MEDS: MONTELUKAST NA 10 MG TABLET PO SCH (21:01)
[2018-11-27] MEDS: QUEtiapine FUMARATE 100 MG TABLET (FP) PO SCH (21:01)
[2018-11-27] MEDS: LIDOCAINE PATCH REMOVAL MC SCH (21:03)
[2018-11-27] MEDS: METHYL SALICYLATE/MENTHOL OINT 30 GM TUBE TP SCH (21:03)
[2018-11-28] MEDS: METHOCARBAMOL 500 MG TABLET PO PRN ×2 (09:57→17:15)
[2018-11-28] MEDS: guaiFENesin 200 MG/10 ML 10 ML UNIT-DOSE CUPS PO PRN (09:57)
[2018-11-28] MEDS: NICOTINE 14 MG/24 HOURS TOPICAL PATCH TD SCH (09:58)
[2018-11-28] MEDS: PRENATAL VITAMINS W/ FOLIC ACID TABLET (FP) PO SCH (09:58)
[2018-11-28] MEDS: LIDOCAINE 5% TOPICAL PATCH TP SCH (09:58)
[2018-11-28] MEDS: hydrOXYzine PAMOATE 25 MG CAPSULE (FP) PO PRN ×2 (09:58→15:15)
[2018-11-28] MEDS: QUEtiapine FUMARATE 50 MG TABLET PO SCH (09:58)
[2018-11-28] MEDS: CITALOPRAM HYDROBROMIDE 20 MG TABLET (FP) PO SCH (09:58)
[2018-11-28] MEDS: NICOTINE POLACRILEX 2 MG GUM BC PRN ×2 (15:15→17:16)
[2018-11-28] MEDS ORDERED: PT OWN MED DRAWER 7, Y5N ONE ×3 (15:36→23:35)
[2018-11-28] MEDS: GABAPENTIN 100 MG CAPSULE (FP) PO SCH ×2 (15:37→21:12)
[2018-11-28] MEDS: QUEtiapine FUMARATE 100 MG TABLET (FP) PO SCH (21:12)
[2018-11-28] MEDS: MONTELUKAST NA 10 MG TABLET PO SCH (21:12)
[2018-11-28] MEDS: THIAMINE HCL 100 MG TABLET (FP) PO SCH (21:12)
[2018-11-28] MEDS: traZODone HCL 100 MG TABLET (FP) PO SCH (21:12)
[2018-11-28] MEDS: LIDOCAINE PATCH REMOVAL MC SCH (21:13)
[2018-11-28] MEDS: METHYL SALICYLATE/MENTHOL OINT 30 GM TUBE TP SCH (21:14)
[2018-11-29] MEDS: GABAPENTIN 100 MG CAPSULE (FP) PO SCH ×3 (06:15→21:13)
[2018-11-29] MEDS ORDERED: ASPIRIN 81 MG CHEWABLE TABLETS PO ONE (08:42)
[2018-11-29] MEDS: MAG HYDROX/AL HYDROX/SIMETH 30 ML UNIT-DOSE CUP PO PRN (08:49)
--- NOTE | 2018-11-29 09:12 | PN ---
[facility] Progress Note (SOAP) Subjective: Patient again complained of left sided chest pain radiating to shoulder only. Also states that she is feeling very anxious related to other patients bothering her and not leaving her alone. Chest pains started when the other patient bothered her and she requested to be excused from unit activities. States it is a sharp pain at 9/10 that comes and goes. Does not change with deep breathing or coughing. Patient was sent last week to ER with chest pain unrelieved with aspirin and maalox, that increased with breathing and did not change with coughing. At that time the pain radiated down her left arm. An EKG showed possible septal wall infarct of undetermined age. She was transported to the ER for further evaluation. Objective: 11/29/18 11:33 A=O x 3, neurologically intact, heart rate regular, lungs clear. EKG show NSR, Oxygen 97%. Vital Signs (72 hours) 11/27/18 11/27/18 11/28/18 00:30 06:40 00:30 Temperature 97.9 F Pulse Rate 79 Respiratory 18 18 17 Rate Blood Pressure 121/81 11/28/18 11/28/18 11/29/18 03:30 07:06 03:30 Temperature 97.9 F Pulse Rate 62 Respiratory 16 18 18 Rate Blood Pressure 122/82 11/29/18 11/29/18 06:50 08:30 Temperature 97.8 F 98.3 F Pulse Rate 64 76 Respiratory 18 18 Rate Blood Pressure 107/73 123/90 11/29/18 11:34 Assessment: 11/29/18 11:35 Anxiety vs. Angina. 11/29/18 11:35 Plan: patient given ASA 81 mg, Maalox 30 cc. Keep patient in bed, encouraged relaxation exercises, will start Nitroglycerin sublingual.
[2018-11-29] MEDS: CITALOPRAM HYDROBROMIDE 20 MG TABLET (FP) PO SCH (09:42)
[2018-11-29] MEDS: PRENATAL VITAMINS W/ FOLIC ACID TABLET (FP) PO SCH (09:42)
[2018-11-29] MEDS: LIDOCAINE 5% TOPICAL PATCH TP SCH (09:42)
[2018-11-29] MEDS: NICOTINE 14 MG/24 HOURS TOPICAL PATCH TD SCH (09:42)
[2018-11-29] MEDS: QUEtiapine FUMARATE 50 MG TABLET PO SCH (09:42)
[2018-11-29] MEDS: METHOCARBAMOL 500 MG TABLET PO PRN ×2 (09:44→17:58)
[2018-11-29] MEDS: NICOTINE POLACRILEX 2 MG GUM BC PRN ×3 (09:45→17:57)
[2018-11-29] MEDS: guaiFENesin 200 MG/10 ML 10 ML UNIT-DOSE CUPS PO PRN (09:45)
[2018-11-29] MEDS: ALBUTEROL SO4 8 GM HFA INHALER IH PRN (09:45)
--- NOTE | 2018-11-29 10:32 | EKG ---
Test Reason : Blood Pressure : / mmHG Vent. Rate : 073 BPM Atrial Rate : 073 BPM P-R Int : 160 ms QRS Dur : 094 ms QT Int : 388 ms P-R-T Axes : 053 043 031 degrees QTc Int : 427 ms NORMAL SINUS RHYTHM POSSIBLE LEFT ATRIAL ENLARGEMENT BORDERLINE ECG WHEN COMPARED WITH ECG OF 23-NOV-2018 10:36, NO SIGNIFICANT CHANGE WAS FOUND Confirmed by SOCRATES CASTANEDA, LISSETH ([id number]) on 11/29/2018 10:31:54 AM Referred By: KARISSA PARISI Confirmed By:LISSETH CROWELL MD
[2018-11-29] MEDS ORDERED: NITROGLYCERIN SUBLINGUAL 1/150 0.4 MG TAB SL PRN (13:02)
[2018-11-29] MEDS: hydrOXYzine PAMOATE 25 MG CAPSULE (FP) PO PRN (21:13)
[2018-11-29] MEDS: QUEtiapine FUMARATE 100 MG TABLET (FP) PO SCH (21:13)
[2018-11-29] MEDS: traZODone HCL 100 MG TABLET (FP) PO SCH (21:13)
[2018-11-29] MEDS: THIAMINE HCL 100 MG TABLET (FP) PO SCH (21:13)
[2018-11-29] MEDS: MONTELUKAST NA 10 MG TABLET PO SCH (21:13)
[2018-11-29] MEDS: LIDOCAINE PATCH REMOVAL MC SCH (21:14)
[2018-11-29] MEDS: METHYL SALICYLATE/MENTHOL OINT 30 GM TUBE TP SCH (21:15)
[2018-11-29] MEDS: MELATONIN 5 MG TABLETS PO PRN (21:16)
[2018-11-30] MEDS: GABAPENTIN 100 MG CAPSULE (FP) PO SCH ×3 (06:29→21:11)
[2018-11-30] MEDS: IBUPROFEN 400 MG TABLET (FP) PO PRN (08:54)
[2018-11-30] MEDS: PRENATAL VITAMINS W/ FOLIC ACID TABLET (FP) PO SCH (09:57)
[2018-11-30] MEDS: QUEtiapine FUMARATE 50 MG TABLET PO SCH (09:57)
[2018-11-30] MEDS: CITALOPRAM HYDROBROMIDE 20 MG TABLET (FP) PO SCH (09:57)
[2018-11-30] MEDS: LIDOCAINE 5% TOPICAL PATCH TP SCH (09:57)
[2018-11-30] MEDS: NICOTINE 14 MG/24 HOURS TOPICAL PATCH TD SCH (09:57)
[2018-11-30] MEDS: hydrOXYzine PAMOATE 25 MG CAPSULE (FP) PO PRN ×2 (10:00→17:46)
[2018-11-30] MEDS: METHOCARBAMOL 500 MG TABLET PO PRN ×2 (10:00→17:46)
[2018-11-30] MEDS: guaiFENesin 200 MG/10 ML 10 ML UNIT-DOSE CUPS PO PRN (10:00)
[2018-11-30] MEDS: ACETAMINOPHEN 325 MG TABLET (FP) PO PRN (13:03)
[2018-11-30] MEDS: NICOTINE POLACRILEX 2 MG GUM BC PRN ×3 (13:04→21:10)
[2018-11-30] MEDS: MAG HYDROX/AL HYDROX/SIMETH 30 ML UNIT-DOSE CUP PO PRN (14:34)
--- NOTE | 2018-11-30 19:16 | PN ---
S Progress Note Note: Pt states that she has a rash that started abou 2 hours ago- after dinner. She says the rash is itchy and is on both sides of chest and stomach area. Says the only new medicine is the Nitroglycerin that was given to her this morning for chest pain. Pt states she has never taken this medicine before. all the other meds that she is now ordered she has had before. PE Vital Signs - 24 hr 11/30/18 11/30/18 11/30/18 00:30 03:30 06:56 Temperature 97.4 F L Pulse Rate 79 Respiratory 18 18 18 Rate Blood Pressure 117/81 11/30/18 11/30/18 09:14 09:53 Temperature 97.8 F Pulse Rate 96 H 67 Respiratory 18 Rate Blood Pressure 105/73 106/69 macular/papular rash on both sides of body, discrete papules, with few papules on abd area, none on chest or extremities a/p: allergic dermatitis- unclear etiology- drug vs food, pt thinks it is the nitroglycerin medicine Benadryl 50mg q6h ordered f/u as needed
[2018-11-30] MEDS: diphenhydrAMINE HCL 25 MG CAPSULE (FP) PO PRN (19:23)
[2018-11-30] MEDS: THIAMINE HCL 100 MG TABLET (FP) PO SCH (21:09)
[2018-11-30] MEDS: MELATONIN 5 MG TABLETS PO PRN (21:10)
[2018-11-30] MEDS: MONTELUKAST NA 10 MG TABLET PO SCH (21:11)
[2018-11-30] MEDS: traZODone HCL 100 MG TABLET (FP) PO SCH (21:11)
[2018-11-30] MEDS: QUEtiapine FUMARATE 100 MG TABLET (FP) PO SCH (21:11)
[2018-11-30] MEDS: LIDOCAINE PATCH REMOVAL MC SCH (21:14)
[2018-11-30] MEDS: METHYL SALICYLATE/MENTHOL OINT 30 GM TUBE TP SCH (21:14)
[2018-12-01] MEDS: GABAPENTIN 100 MG CAPSULE (FP) PO SCH ×3 (06:05→21:01)
[2018-12-01] MEDS: LIDOCAINE 5% TOPICAL PATCH TP SCH (09:50)
[2018-12-01] MEDS: CITALOPRAM HYDROBROMIDE 20 MG TABLET (FP) PO SCH (09:50)
[2018-12-01] MEDS: QUEtiapine FUMARATE 50 MG TABLET PO SCH (09:50)
[2018-12-01] MEDS: PRENATAL VITAMINS W/ FOLIC ACID TABLET (FP) PO SCH (09:50)
[2018-12-01] MEDS: NICOTINE 14 MG/24 HOURS TOPICAL PATCH TD SCH (09:50)
[2018-12-01] MEDS: diphenhydrAMINE HCL 25 MG CAPSULE (FP) PO PRN ×2 (09:52→16:59)
[2018-12-01] MEDS: METHOCARBAMOL 500 MG TABLET PO PRN ×2 (09:52→17:00)
[2018-12-01] MEDS: IBUPROFEN 400 MG TABLET (FP) PO PRN (12:59)
[2018-12-01] MEDS: hydrOXYzine PAMOATE 25 MG CAPSULE (FP) PO PRN (12:59)
[2018-12-01] MEDS: NICOTINE POLACRILEX 2 MG GUM BC PRN ×2 (13:00→17:00)
[2018-12-01] MEDS: MAG HYDROX/AL HYDROX/SIMETH 30 ML UNIT-DOSE CUP PO PRN (19:33)
[2018-12-01] MEDS: THIAMINE HCL 100 MG TABLET (FP) PO SCH (21:01)
[2018-12-01] MEDS: QUEtiapine FUMARATE 100 MG TABLET (FP) PO SCH (21:01)
[2018-12-01] MEDS: traZODone HCL 100 MG TABLET (FP) PO SCH (21:01)
[2018-12-01] MEDS: MELATONIN 5 MG TABLETS PO PRN (21:01)
[2018-12-01] MEDS: LIDOCAINE PATCH REMOVAL MC SCH (21:01)
[2018-12-01] MEDS: METHYL SALICYLATE/MENTHOL OINT 30 GM TUBE TP SCH (21:01)
[2018-12-01] MEDS: MONTELUKAST NA 10 MG TABLET PO SCH (21:01)
[2018-12-02] MEDS: GABAPENTIN 100 MG CAPSULE (FP) PO SCH ×3 (06:48→21:14)
[2018-12-02] MEDS: diphenhydrAMINE HCL 25 MG CAPSULE (FP) PO PRN ×2 (06:48→17:30)
[2018-12-02] MEDS: LIDOCAINE 5% TOPICAL PATCH TP SCH (10:00)
[2018-12-02] MEDS: PRENATAL VITAMINS W/ FOLIC ACID TABLET (FP) PO SCH (10:02)
[2018-12-02] MEDS: QUEtiapine FUMARATE 50 MG TABLET PO SCH (10:02)
[2018-12-02] MEDS: CITALOPRAM HYDROBROMIDE 20 MG TABLET (FP) PO SCH (10:03)
[2018-12-02] MEDS: NICOTINE POLACRILEX 2 MG GUM BC PRN ×2 (10:03→13:01)
[2018-12-02] MEDS: NICOTINE 14 MG/24 HOURS TOPICAL PATCH TD SCH (10:03)
[2018-12-02] MEDS: hydrOXYzine PAMOATE 25 MG CAPSULE (FP) PO PRN (10:03)
[2018-12-02] MEDS: METHOCARBAMOL 500 MG TABLET PO PRN ×2 (10:03→17:29)
[2018-12-02] MEDS: ACETAMINOPHEN 325 MG TABLET (FP) PO PRN (17:29)
[2018-12-02] MEDS: LIDOCAINE PATCH REMOVAL MC SCH (21:14)
[2018-12-02] MEDS: MELATONIN 5 MG TABLETS PO PRN (21:14)
[2018-12-02] MEDS: QUEtiapine FUMARATE 100 MG TABLET (FP) PO SCH (21:14)
[2018-12-02] MEDS: THIAMINE HCL 100 MG TABLET (FP) PO SCH (21:14)
[2018-12-02] MEDS: MONTELUKAST NA 10 MG TABLET PO SCH (21:14)
[2018-12-02] MEDS: traZODone HCL 100 MG TABLET (FP) PO SCH (21:14)
[2018-12-02] MEDS: METHYL SALICYLATE/MENTHOL OINT 30 GM TUBE TP SCH (21:15)
[2018-12-03] MEDS: GABAPENTIN 100 MG CAPSULE (FP) PO SCH ×3 (07:11→20:59)
[2018-12-03] MEDS: NICOTINE POLACRILEX 2 MG GUM BC PRN ×5 (07:12→19:33)
[2018-12-03] MEDS: NICOTINE 14 MG/24 HOURS TOPICAL PATCH TD SCH (09:50)
[2018-12-03] MEDS: PRENATAL VITAMINS W/ FOLIC ACID TABLET (FP) PO SCH (09:50)
[2018-12-03] MEDS: QUEtiapine FUMARATE 50 MG TABLET PO SCH (09:51)
[2018-12-03] MEDS: METHOCARBAMOL 500 MG TABLET PO PRN ×2 (09:51→16:58)
[2018-12-03] MEDS: LIDOCAINE 5% TOPICAL PATCH TP SCH (09:51)
[2018-12-03] MEDS: CITALOPRAM HYDROBROMIDE 20 MG TABLET (FP) PO SCH (09:51)
[2018-12-03] MEDS: diphenhydrAMINE HCL 25 MG CAPSULE (FP) PO PRN ×2 (09:51→19:18)
[2018-12-03] MEDS: hydrOXYzine PAMOATE 25 MG CAPSULE (FP) PO PRN (15:36)
[2018-12-03] MEDS: traZODone HCL 100 MG TABLET (FP) PO SCH (20:59)
[2018-12-03] MEDS: METHYL SALICYLATE/MENTHOL OINT 30 GM TUBE TP SCH (20:59)
[2018-12-03] MEDS: LIDOCAINE PATCH REMOVAL MC SCH (20:59)
[2018-12-03] MEDS: QUEtiapine FUMARATE 100 MG TABLET (FP) PO SCH (20:59)
[2018-12-03] MEDS: MELATONIN 5 MG TABLETS PO PRN (20:59)
[2018-12-03] MEDS: MONTELUKAST NA 10 MG TABLET PO SCH (20:59)
[2018-12-03] MEDS: THIAMINE HCL 100 MG TABLET (FP) PO SCH (20:59)
[2018-12-04] MEDS: NICOTINE POLACRILEX 2 MG GUM BC PRN ×4 (06:31→21:13)
[2018-12-04] MEDS: diphenhydrAMINE HCL 25 MG CAPSULE (FP) PO PRN (06:31)
[2018-12-04] MEDS: GABAPENTIN 100 MG CAPSULE (FP) PO SCH ×3 (06:31→21:12)
[2018-12-04] MEDS: PRENATAL VITAMINS W/ FOLIC ACID TABLET (FP) PO SCH (09:53)
[2018-12-04] MEDS: LIDOCAINE 5% TOPICAL PATCH TP SCH (09:53)
[2018-12-04] MEDS: CITALOPRAM HYDROBROMIDE 20 MG TABLET (FP) PO SCH (09:53)
[2018-12-04] MEDS: hydrOXYzine PAMOATE 25 MG CAPSULE (FP) PO PRN (09:54)
[2018-12-04] MEDS: QUEtiapine FUMARATE 50 MG TABLET PO SCH (09:54)
[2018-12-04] MEDS: NICOTINE 14 MG/24 HOURS TOPICAL PATCH TD SCH (09:54)
[2018-12-04] MEDS: METHOCARBAMOL 500 MG TABLET PO PRN (09:55)
[2018-12-04] MEDS ORDERED: PT OWN MED DRAWER 7, Y5N ONE ×2 (14:46→21:09)
[2018-12-04] MEDS: traZODone HCL 100 MG TABLET (FP) PO SCH (21:12)
[2018-12-04] MEDS: MONTELUKAST NA 10 MG TABLET PO SCH (21:12)
[2018-12-04] MEDS: QUEtiapine FUMARATE 100 MG TABLET (FP) PO SCH (21:13)
[2018-12-04] MEDS: THIAMINE HCL 100 MG TABLET (FP) PO SCH (21:13)
[2018-12-04] MEDS: LIDOCAINE PATCH REMOVAL MC SCH (21:14)
[2018-12-04] MEDS: METHYL SALICYLATE/MENTHOL OINT 30 GM TUBE TP SCH (21:15)
[2018-12-05] MEDS: GABAPENTIN 100 MG CAPSULE (FP) PO SCH ×3 (06:29→21:03)
[2018-12-05] MEDS: NICOTINE POLACRILEX 2 MG GUM BC PRN ×4 (06:30→18:11)
[2018-12-05] MEDS: CITALOPRAM HYDROBROMIDE 20 MG TABLET (FP) PO SCH (10:00)
[2018-12-05] MEDS: PRENATAL VITAMINS W/ FOLIC ACID TABLET (FP) PO SCH (10:00)
[2018-12-05] MEDS: QUEtiapine FUMARATE 50 MG TABLET PO SCH (10:00)
[2018-12-05] MEDS: METHOCARBAMOL 500 MG TABLET PO PRN ×2 (10:00→18:09)
[2018-12-05] MEDS: hydrOXYzine PAMOATE 25 MG CAPSULE (FP) PO PRN ×2 (10:00→18:11)
[2018-12-05] MEDS: NICOTINE 14 MG/24 HOURS TOPICAL PATCH TD SCH (10:01)
[2018-12-05] MEDS: LIDOCAINE 5% TOPICAL PATCH TP SCH (10:01)
[2018-12-05] MEDS: MAG HYDROX/AL HYDROX/SIMETH 30 ML UNIT-DOSE CUP PO PRN ×2 (10:57→21:05)
[2018-12-05] MEDS: diphenhydrAMINE HCL 25 MG CAPSULE (FP) PO PRN ×2 (13:03→21:03)
[2018-12-05] MEDS ORDERED: PT OWN MED DRAWER 7, Y5N ONE ×2 (21:01→22:33)
[2018-12-05] MEDS: QUEtiapine FUMARATE 100 MG TABLET (FP) PO SCH (21:02)
[2018-12-05] MEDS: METHYL SALICYLATE/MENTHOL OINT 30 GM TUBE TP SCH (21:02)
[2018-12-05] MEDS: MONTELUKAST NA 10 MG TABLET PO SCH (21:03)
[2018-12-05] MEDS: MELATONIN 5 MG TABLETS PO PRN (21:04)
[2018-12-05] MEDS: traZODone HCL 100 MG TABLET (FP) PO SCH (21:07)
[2018-12-05] MEDS: THIAMINE HCL 100 MG TABLET (FP) PO SCH (21:08)
[2018-12-05] MEDS: LIDOCAINE PATCH REMOVAL MC SCH (21:08)
[2018-12-06] MEDS: GABAPENTIN 100 MG CAPSULE (FP) PO SCH ×3 (06:18→21:16)
[2018-12-06] MEDS: NICOTINE POLACRILEX 2 MG GUM BC PRN ×2 (06:19→09:30)
[2018-12-06] MEDS: METHOCARBAMOL 500 MG TABLET PO PRN (08:43)
[2018-12-06] MEDS: hydrOXYzine PAMOATE 25 MG CAPSULE (FP) PO PRN ×2 (08:43→17:52)
[2018-12-06] MEDS: NICOTINE 14 MG/24 HOURS TOPICAL PATCH TD SCH (09:28)
[2018-12-06] MEDS: QUEtiapine FUMARATE 50 MG TABLET PO SCH (09:28)
[2018-12-06] MEDS: CITALOPRAM HYDROBROMIDE 20 MG TABLET (FP) PO SCH (09:28)
[2018-12-06] MEDS: PRENATAL VITAMINS W/ FOLIC ACID TABLET (FP) PO SCH (09:28)
[2018-12-06] MEDS: ASPIRIN COATED 81 MG TABLET.EC PO SCH (09:28)
[2018-12-06] MEDS: LIDOCAINE 5% TOPICAL PATCH TP SCH (09:29)
[2018-12-06] MEDS: diphenhydrAMINE HCL 25 MG CAPSULE (FP) PO PRN ×2 (12:56→21:18)
[2018-12-06] MEDS: QUEtiapine FUMARATE 100 MG TABLET (FP) PO SCH (21:16)
[2018-12-06] MEDS: THIAMINE HCL 100 MG TABLET (FP) PO SCH (21:16)
[2018-12-06] MEDS: traZODone HCL 100 MG TABLET (FP) PO SCH (21:16)
[2018-12-06] MEDS: MONTELUKAST NA 10 MG TABLET PO SCH (21:16)
[2018-12-06] MEDS: MELATONIN 5 MG TABLETS PO PRN (21:17)
[2018-12-06] MEDS: LIDOCAINE PATCH REMOVAL MC SCH (21:18)
[2018-12-06] MEDS: METHYL SALICYLATE/MENTHOL OINT 30 GM TUBE TP SCH (21:18)
[2018-12-07] MEDS: GABAPENTIN 100 MG CAPSULE (FP) PO SCH ×3 (06:38→21:32)
[2018-12-07] MEDS: NICOTINE POLACRILEX 2 MG GUM BC PRN ×3 (06:39→14:00)
[2018-12-07] MEDS ORDERED: BISMUTH SUBSALICYLATE 262 MG/15 ML BTL PO ONE (09:38)
[2018-12-07] MEDS: CITALOPRAM HYDROBROMIDE 20 MG TABLET (FP) PO SCH (09:41)
[2018-12-07] MEDS: QUEtiapine FUMARATE 50 MG TABLET PO SCH (09:41)
[2018-12-07] MEDS: PRENATAL VITAMINS W/ FOLIC ACID TABLET (FP) PO SCH (09:41)
[2018-12-07] MEDS: ASPIRIN COATED 81 MG TABLET.EC PO SCH (09:41)
[2018-12-07] MEDS: NICOTINE 14 MG/24 HOURS TOPICAL PATCH TD SCH (09:41)
[2018-12-07] MEDS: LIDOCAINE 5% TOPICAL PATCH TP SCH (09:41)
[2018-12-07] MEDS: METHOCARBAMOL 500 MG TABLET PO PRN ×2 (09:42→17:50)
[2018-12-07] MEDS: hydrOXYzine PAMOATE 25 MG CAPSULE (FP) PO PRN ×2 (09:42→17:50)
[2018-12-07] MEDS: diphenhydrAMINE HCL 25 MG CAPSULE (FP) PO PRN ×2 (11:54→21:31)
[2018-12-07] MEDS ORDERED: BISMUTH SUBSALICYLATE 262 MG/15 ML BTL PO PRN (15:08)
[2018-12-07] MEDS: MAG HYDROX/AL HYDROX/SIMETH 30 ML UNIT-DOSE CUP PO PRN (19:47)
[2018-12-07] MEDS ORDERED: PT OWN MED DRAWER 7, Y5N ONE (21:08)
[2018-12-07] MEDS: THIAMINE HCL 100 MG TABLET (FP) PO SCH (21:31)
[2018-12-07] MEDS: QUEtiapine FUMARATE 100 MG TABLET (FP) PO SCH (21:31)
[2018-12-07] MEDS: MELATONIN 5 MG TABLETS PO PRN (21:31)
[2018-12-07] MEDS: traZODone HCL 100 MG TABLET (FP) PO SCH (21:32)
[2018-12-07] MEDS: MONTELUKAST NA 10 MG TABLET PO SCH (21:32)
[2018-12-07] MEDS: LIDOCAINE PATCH REMOVAL MC SCH (21:32)
[2018-12-07] MEDS: METHYL SALICYLATE/MENTHOL OINT 30 GM TUBE TP SCH (21:33)
[2018-12-08] MEDS: GABAPENTIN 100 MG CAPSULE (FP) PO SCH ×3 (06:23→21:03)
[2018-12-08] MEDS: NICOTINE POLACRILEX 2 MG GUM BC PRN ×4 (06:23→17:34)
[2018-12-08] MEDS: hydrOXYzine PAMOATE 25 MG CAPSULE (FP) PO PRN ×2 (09:51→17:33)
[2018-12-08] MEDS: PRENATAL VITAMINS W/ FOLIC ACID TABLET (FP) PO SCH (09:51)
[2018-12-08] MEDS: ASPIRIN COATED 81 MG TABLET.EC PO SCH (09:52)
[2018-12-08] MEDS: NICOTINE 14 MG/24 HOURS TOPICAL PATCH TD SCH (09:52)
[2018-12-08] MEDS: QUEtiapine FUMARATE 50 MG TABLET PO SCH (09:52)
[2018-12-08] MEDS: CITALOPRAM HYDROBROMIDE 20 MG TABLET (FP) PO SCH (09:52)
[2018-12-08] MEDS: LIDOCAINE 5% TOPICAL PATCH TP SCH (09:52)
[2018-12-08] MEDS: IBUPROFEN 400 MG TABLET (FP) PO PRN (09:53)
[2018-12-08] MEDS: METHOCARBAMOL 500 MG TABLET PO PRN ×2 (09:53→17:34)
[2018-12-08] MEDS: diphenhydrAMINE HCL 25 MG CAPSULE (FP) PO PRN ×2 (13:54→21:03)
[2018-12-08] MEDS: QUEtiapine FUMARATE 100 MG TABLET (FP) PO SCH (21:03)
[2018-12-08] MEDS: MONTELUKAST NA 10 MG TABLET PO SCH (21:03)
[2018-12-08] MEDS: traZODone HCL 100 MG TABLET (FP) PO SCH (21:03)
[2018-12-08] MEDS: THIAMINE HCL 100 MG TABLET (FP) PO SCH (21:03)
[2018-12-08] MEDS: MELATONIN 5 MG TABLETS PO PRN (21:04)
[2018-12-08] MEDS: LIDOCAINE PATCH REMOVAL MC SCH (21:04)
[2018-12-08] MEDS: METHYL SALICYLATE/MENTHOL OINT 30 GM TUBE TP SCH (21:04)
[2018-12-09] MEDS: GABAPENTIN 100 MG CAPSULE (FP) PO SCH ×3 (06:50→21:34)
[2018-12-09] MEDS: NICOTINE POLACRILEX 2 MG GUM BC PRN ×2 (06:50→21:35)
[2018-12-09] MEDS: diphenhydrAMINE HCL 25 MG CAPSULE (FP) PO PRN (08:34)
[2018-12-09] MEDS: QUEtiapine FUMARATE 50 MG TABLET PO SCH (09:57)
[2018-12-09] MEDS: CITALOPRAM HYDROBROMIDE 20 MG TABLET (FP) PO SCH (09:57)
[2018-12-09] MEDS: ASPIRIN COATED 81 MG TABLET.EC PO SCH (09:57)
[2018-12-09] MEDS: PRENATAL VITAMINS W/ FOLIC ACID TABLET (FP) PO SCH (09:57)
[2018-12-09] MEDS: METHOCARBAMOL 500 MG TABLET PO PRN (09:58)
[2018-12-09] MEDS: LIDOCAINE 5% TOPICAL PATCH TP SCH (09:59)
[2018-12-09] MEDS: NICOTINE 14 MG/24 HOURS TOPICAL PATCH TD SCH (10:00)
[2018-12-09] MEDS: hydrOXYzine PAMOATE 25 MG CAPSULE (FP) PO PRN (11:36)
[2018-12-09] MEDS: MAG HYDROX/AL HYDROX/SIMETH 30 ML UNIT-DOSE CUP PO PRN (11:36)
[2018-12-09] MEDS: IBUPROFEN 400 MG TABLET (FP) PO PRN (11:37)
[2018-12-09] MEDS: METHYL SALICYLATE/MENTHOL OINT 30 GM TUBE TP SCH (21:33)
[2018-12-09] MEDS: MELATONIN 5 MG TABLETS PO PRN (21:33)
[2018-12-09] MEDS: LIDOCAINE PATCH REMOVAL MC SCH (21:33)
[2018-12-09] MEDS: traZODone HCL 100 MG TABLET (FP) PO SCH (21:33)
[2018-12-09] MEDS: THIAMINE HCL 100 MG TABLET (FP) PO SCH (21:34)
[2018-12-09] MEDS: MONTELUKAST NA 10 MG TABLET PO SCH (21:34)
[2018-12-09] MEDS: QUEtiapine FUMARATE 100 MG TABLET (FP) PO SCH (21:34)
[2018-12-10] MEDS: GABAPENTIN 100 MG CAPSULE (FP) PO SCH ×3 (06:59→21:32)
[2018-12-10] MEDS: NICOTINE POLACRILEX 2 MG GUM BC PRN ×6 (07:00→21:34)
[2018-12-10] MEDS: ASPIRIN COATED 81 MG TABLET.EC PO SCH (09:56)
[2018-12-10] MEDS: LIDOCAINE 5% TOPICAL PATCH TP SCH (09:56)
[2018-12-10] MEDS: PRENATAL VITAMINS W/ FOLIC ACID TABLET (FP) PO SCH (09:57)
[2018-12-10] MEDS: QUEtiapine FUMARATE 50 MG TABLET PO SCH (09:57)
[2018-12-10] MEDS: CITALOPRAM HYDROBROMIDE 20 MG TABLET (FP) PO SCH (09:57)
[2018-12-10] MEDS: hydrOXYzine PAMOATE 25 MG CAPSULE (FP) PO PRN ×2 (09:58→18:05)
[2018-12-10] MEDS: METHOCARBAMOL 500 MG TABLET PO PRN ×2 (09:58→18:05)
[2018-12-10] MEDS: NICOTINE 14 MG/24 HOURS TOPICAL PATCH TD SCH (10:00)
[2018-12-10] MEDS: IBUPROFEN 400 MG TABLET (FP) PO PRN (11:49)
[2018-12-10] MEDS: diphenhydrAMINE HCL 25 MG CAPSULE (FP) PO PRN ×2 (11:49→21:34)
--- NOTE | 2018-12-10 15:07 | PN ---
[facility] Progress Note Note: Patient is scheduled for discharge tomorrow. Scripts for 30 days supply of medications(Seroquel 50mg daily & 100 mg hs, Celexa 20 mg/day, Trazadone 100 mg/ hs) will be electronically transmitted to [facility] at [address] [place] [address]
[2018-12-10] MEDS: traZODone HCL 100 MG TABLET (FP) PO SCH (21:32)
[2018-12-10] MEDS: THIAMINE HCL 100 MG TABLET (FP) PO SCH (21:32)
[2018-12-10] MEDS: MONTELUKAST NA 10 MG TABLET PO SCH (21:32)
[2018-12-10] MEDS: QUEtiapine FUMARATE 100 MG TABLET (FP) PO SCH (21:32)
[2018-12-10] MEDS: METHYL SALICYLATE/MENTHOL OINT 30 GM TUBE TP SCH (21:32)
[2018-12-10] MEDS: LIDOCAINE PATCH REMOVAL MC SCH (21:32)
[2018-12-10] MEDS: MELATONIN 5 MG TABLETS PO PRN (21:34)
[2018-12-10] MEDS ORDERED: PT OWN MED DRAWER 7, Y5N ONE (21:55)
[2018-12-11] MEDS: GABAPENTIN 100 MG CAPSULE (FP) PO SCH (06:09)
[2018-12-11] MEDS: NICOTINE POLACRILEX 2 MG GUM BC PRN (06:09)
[2018-12-11 06:53] VITALS: BP 110/71; PULSE 77; TEMP 97.6
[2018-12-11] MEDS: CITALOPRAM HYDROBROMIDE 20 MG TABLET (FP) PO SCH (09:00)
[2018-12-11] MEDS: PRENATAL VITAMINS W/ FOLIC ACID TABLET (FP) PO SCH (09:01)
[2018-12-11] MEDS: ASPIRIN COATED 81 MG TABLET.EC PO SCH (09:01)
[2018-12-11] MEDS: QUEtiapine FUMARATE 50 MG TABLET PO SCH (09:01)
[2018-12-11] MEDS: LIDOCAINE 5% TOPICAL PATCH TP SCH (09:01)
[2018-12-11] MEDS: NICOTINE 14 MG/24 HOURS TOPICAL PATCH TD SCH (09:01)
--- NOTE | 2018-12-11 11:13 | PN ---
S Progress Note Note: PT COMPLETED REHAB AND DISCHARGED TODAY. PT HAS BEEN REFERRED TO [place], [place] FOR [facility] AFTER[facility]ARE. PT REPORTS SHE HAS PRIMARY CARE AT [facility], [place], [place]. PT IS ALERT O X 3. DENIES S/H/I. Home Medications Medication Instructions Recorded Albuterol 0.083% Nebulizer Patricia 1 amp NEB Q4H PRN amp 11/20/18 [Ventolin 0.083% Nebulizer Soln -] Albuterol Sulfate Inhaler - 2 puff IH Q4H PRN inhaler 11/20/18 [Ventolin HFA Inhaler -] Cephalexin Monohydrate [Keflex -] 500 mg PO BID #10 capsule 11/20/18 Methocarbamol [Robaxin -] 1,000 mg PO Q6H PRN tablet 11/20/18 Citalopram Hydrobromide [Celexa -] 20 mg PO DAILY #30 tablet 12/10/18 Quetiapine Fumarate [Seroquel -] 50 mg PO DAILY #30 tablet 12/10/18 Quetiapine Fumarate [Seroquel] 100 tab PO HS #30 tablet 12/10/18 traZODone HCL [Desyrel -] 100 mg PO HS #30 tablet 12/10/18 Vital Signs 12/11/18 06:49 Temperature 97.6 F Pulse Rate 77 Respiratory 18 Rate Blood Pressure 110/71 Laboratory Tests 11/20/18 11/21/18 11/21/18 19:10 08:10 08:10 WBC 5.7 RBC 4.19 Hgb 13.1 Hct 37.2 D MCV 88.7 MCH 31.3 MCHC 35.3 RDW 14.0 Plt Count 321 D MPV 8.0 Sodium 140 Potassium 4.5 Chloride 106 Carbon Dioxide 29 Anion Gap 5 L BUN 12 Creatinine 0.8 Creat Clearance w eGFR 76.56 Random Glucose 100 Calcium 9.0 Total Bilirubin 0.8 AST 125 H ALT 125 H Alkaline Phosphatase 59 Total Protein 7.0 Albumin 3.5 Urine Color Yellow Urine Appearance Clear Urine pH 5.5 Ur Specific [place] 1.014 Urine Protein Negative Urine Glucose (UA) Negative Urine Ketones Negative Urine Blood Trace Urine Nitrite Negative Urine Bilirubin Negative Urine Urobilinogen 0.2 Ur Leukocyte Esterase Trace Urine WBC (Auto) 3 Urine RBC (Auto) 1 Urine Casts (Auto) 1 U Epithel Cells (Auto) 2.3 Urine Bacteria (Auto) 0.8 11/24/18 07:35 WBC RBC Hgb Hct MCV MCH MCHC RDW Plt Count MPV Sodium 140 Potassium 4.7 Chloride 106 Carbon Dioxide 31 Anion Gap 3 L BUN 17 Creatinine 0.8 Creat Clearance w eGFR 76.56 Random Glucose 100 Calcium 8.9 Total Bilirubin 0.4 AST 55 H ALT 126 H Alkaline Phosphatase 53 Total Protein 6.5 Albumin 3.4 Urine Color Urine Appearance Urine pH Ur Specific [place] Urine Protein Urine Glucose (UA) Urine Ketones Urine Blood Urine Nitrite Urine Bilirubin Urine Urobilinogen Ur Leukocyte Esterase Urine WBC (Auto) Urine RBC (Auto) Urine Casts (Auto) U Epithel Cells (Auto) Urine Bacteria (Auto) NAD MEDICALLY STABLE PLAN;FOLLOW UP WITH [facility] RECOMMENDATION FOLLOW UP WITH PCP AT [facility] WITHIN 1-2 WEEKS AFTER DISCHARGE.
== END 2018-12-11 09:07 | disposition home or self-care (01) | DRG 772 ==
LOC: YASAS 16:13 → Y3E 19:10
PROVIDERS: ADMIT Neuromusculoskeletal Medicine & OMM; ATTEND Neuromusculoskeletal Medicine & OMM
PROC: HZ42ZZZ Group Counseling for Substance Abuse Treatment, Cognitive-Behavioral (ICD-10-PCS; principal; 2018-11-20)
DX: F10.20 Alcohol dependence, uncomplicated (principal); F14.20 Cocaine dependence, uncomplicated; F12.20 Cannabis dependence, uncomplicated; F17.210 Nicotine dependence, cigarettes, uncomplicated; F19.24 Other psychoactive substance dependence with psychoactive substance-induced mood disorder; F31.9 Bipolar disorder, unspecified; G47.00 Insomnia, unspecified; K21.9 Gastro-esophageal reflux disease without esophagitis; M54.5 Low back pain; R06.2 Wheezing; L23.9 Allergic contact dermatitis, unspecified cause; M12.9 Arthropathy, unspecified; M17.0 Bilateral primary osteoarthritis of knee; R26.89 Other abnormalities of gait and mobility; Z99.89 Dependence on other enabling machines and devices; Z91.5 Personal history of self-harm
CPT/HCPCS: 36415; 80053; 81003; 85027; 93005; 93010; 94640

== ENCOUNTER 2018-11-23 12:35 | Emergency (ER) | payer OTHER ==
[2018-11-23 12:47] VITALS: TEMP 98.2; BMI 31.1
[2018-11-23] MEDS ORDERED: ACETAMINOPHEN 325 MG TABLET (FP) ONE ×2 (12:49→13:53)
--- NOTE | 2018-11-23 13:00 | PDOC ---
History of Present Illness - General Chief Complaint: Chest Pain Stated Complaint: CHEST PAIN Time Seen by Provider: 11/23/18 12:59 - History of Present Illness Initial Comments: 47yo F with PMH of bipolar, depression, anxiety, polysubstance abuse sent by [facility] for chest pain. Patient states she had sudden "sharp" chest pain rated 7/10 while laughing in group therapy. Patient has had this pain for the last two months including during her admission at this hospital from 11/14-11/20 for pneumonia and influenza. The pain occurs randomly without correlating with exertion. No nausea, vomiting, or diaphoresis. No personal or cardiac history of [place]. No hemoptysis, no recent surgical history, no recent immobilization, no history of DVT or PE. She reports having a IUD in place which was supposed to be removed several years ago. Endorsing abdominal cramping which she attributes to menstrual spotting. Reports chills. No fevers or shortness of breath. Past History - Past Medical History Allergies/Adverse Reactions: Allergies Allergy/AdvReac Type Severity Reaction Status Date / Time No Known Allergies Allergy Verified 11/20/18 18:02 Home Medications: Ambulatory Orders Chlorpromazine [Thorazine -] 50 mg PO BID PRN 11/09/18 Citalopram Hydrobromide [Celexa -] 20 mg PO DAILY 11/09/18 Haloperidol [Haldol -] 5 mg PO TID PRN 11/09/18 Quetiapine Fumarate [Seroquel] 100 tab PO HS 11/09/18 Trazodone HCl 150 mg PO HS 11/09/18 Albuterol 0.083% Nebulizer Patricia [Ventolin 0.083% Nebulizer Soln -] 1 amp NEB Q4H PRN amp 11/20/18 Albuterol Sulfate Inhaler - [Ventolin HFA Inhaler -] 2 puff IH Q4H PRN inhaler 11/20/18 Cephalexin Monohydrate [Keflex -] 500 mg PO BID #10 capsule 11/20/18 Methocarbamol [Robaxin -] 1,000 mg PO Q6H PRN tablet 11/20/18 Anemia: No Asthma: No Cancer: No Cardiac Disorders: No CVA: No COPD: No CHF: No Dementia: No Diabetes: No GI Disorders: Yes (GERD ) Disorders: No HTN: No Hypercholesterolemia: No Kidney Stones: No Liver Disease: No Seizures: No Thyroid Disease: No - Surgical History Abdominal Surgery: Yes (bowel obstruction sx 2003) Appendectomy: No Cardiac Surgery: No Cholecystectomy: No Lung Surgery: No Neurologic Surgery: No Orthopedic Surgery: No - Reproductive History PID: No - Suicide/Smoking/Psychosocial Hx Smoking History: Current every day smoker Have you smoked in the past 12 months: No Number of Cigarettes Smoked Daily: 10 If you are a former smoker, when did you quit?: 15 years ago Cigars Per Day: 10 Information on smoking cessation initiated: No 'Breaking Loose' booklet given: 11/20/18 Hx Alcohol Use: No Drug/Substance Use Hx: No Substance Use Type: Alcohol, Cocaine, Marijuana Hx Substance Use Treatment: Yes (detox at [facility] 11/09/18 - 11/14/18.) Review of Systems - Review of Systems Comments:: Constitutional: no fever, +chills HEENT: no throat pain, no dysphagia Cardiovascular: +chest pain, no palpitations Respiratory: +cough, no shortness of breath Gastrointestinal: no vomiting, no nausea Genitourinary: no dysuria, no frequency Musculoskeletal: no myalgia, no arthralgia Skin: no rash, no itching Neurologic: no headache, no weakness *Physical Exam - Vital Signs Last Vital Signs Temp Pulse Resp BP Pulse Ox 98.2 F 78 16 142/88 98 11/23/18 12:35 11/23/18 12:35 11/23/18 12:35 11/23/18 12:35 11/23/18 12:35 - Physical Exam Comments: General: Awake, alert, and fully oriented, in no acute distress Head: No signs of trauma Eyes: EOMI, sclera anicteric ENT: Moist mucus membranes Neck: Normal ROM, supple Lungs: Lungs clear, Normal breath sounds Cardio: Regular rhythm, S1 and S2 present Abdomen: Soft, nontender Extremities: Normal range of motion, Distal pulses present SKIN: Warm, Dry, normal turgor Neurologic: Cranial nerves II through XII grossly intact. Normal speech ED Treatment Course - LABORATORY CBC & Chemistry Diagram: 11/23/18 14:07 11/23/18 14:07 Medical Decision Making - Medical Decision Making 47yo F with PMH of bipolar, depression, anxiety, polysubstance abuse sent by [facility] for chest pain. DDX including but not limited to ACS, PNA, PE, MSK, Psych Cardiac workup 11/23/18 13:27 No anemia or leukocytosis First tpn negative LFTS increased, consistent with values two days ago, likely due to recent heavy ETOH consumption Electrolytes otherwise unremarkable EKG: rate 65, no ST d/e CXR: "Single AP view the chest is been submitted. Since 11/14/2018, again noted is the prominent heart, unfolded aorta, prominent sharla and some atelectatic changes in both lung caballero. Since 11/14/2018, the previously noted atelectatic changes have diminished. Correlation recommended." Bedside US with normal ECHO 11/23/18 18:21 CTA: "No discrete pulmonary embolus is noted. There is no evidence of pneumothorax, infiltrate or pleural effusion. Bilateral lower lobe discoid atelectasis is visualized. The trachea and central bronchi demonstrate no obvious pathology. There is no definite cardiac enlargement. No pericardial effusion is seen. No aortic aneurysm is noted. Several mildly prominent bilateral axillary lymph nodes are seen with a 0.8 cm maximum short axis diameter. Two mildly prominent right hilar lymph nodes are noted with a 0.7 cm short axis diameter. The visualized osseous structures demonstrate no gross acute abnormality. Impression: No CT evidence of pulmonary embolism. Bilateral lower lobe discoid atelectasis. Mildly prominent bilateral axillary lymph nodes are seen. Mildly prominent right hilar lymph nodes are noted. Correlate clinically and consider close follow-up CT." Second tpn negative 11/23/18 18:40 Discussed case with WATER RESTORATION TECHNICIAN Kim at [facility] who awaits patient's return As patient is inpatient, she needs to be transported via ambulance 11/23/18 18:43 *DC/Admit/Observation/Transfer Diagnosis at time of Disposition: Chest pain Qualifiers: Chest pain type: chest pain on breathing Qualified Code(s): R07.1 - Chest pain on breathing - Discharge Dispostion Disposition: TRANSFER ACUTE CARE/OTHER HOSP Condition at time of disposition: Stable - Referrals Referrals: Joaquin Albrecht MD [Primary Care Provider] - [facility] [place] [Provider Group] Duncan Villegas MD [Staff Physician] - - Patient Instructions Printed Discharge Instructions: DI for Chest Pain Additional Instructions: You came into the ED for chest pain. We performed blood work, EKG, and an Xray which was within normal limits. The CT of your chest was negative for blood clot. Follow-up with a primary care doctor this week to discuss this ED visit and to further evaluate your chest pain. You have been referred to the [facility] in case you do not have a primary care provider. We have referred you to a master carpenter to follow up with this week. Call and make appointments at the numbers provided. Your workup is not complete until you do so. Call for emergency medicine services or go to the emergency room right away if you have symptoms of a heart attack, including: Chest pain, which may feel like a crushing weight A sense of fullness, squeezing, or pressure in the chest Rapid, irregular heartbeat Pain, tingling or numbness in the left shoulder and arm, the neck or jaw, or the right arm Sweating Nausea or vomiting Lightheadedness, weakness, or fainting Shortness of breath If you think you have an emergency, call for medical help right away. - Post Discharge Activity
[2018-11-23 14:14] LABS: BASO % 0.2 % (0-2.0); EOS % 2.7 % (0-4.5); HEMOGLOBIN 11.7 GM/dL (10.7-15.3); LYMPH % 32.6 % (8-40); MCH 31.4 pg (25.7-33.7); MCHC 35.5 g/dl (32.0-36.0); MEAN CELL VOLUME 88.5 fl (80-96); MEAN PLT VOLUME 7.4 fl (7.5-11.1); NEUT % 58.5 % (42.8-82.8); PLATELET COUNT 329 K/MM3 (134-434); RBC 3.73 M/mm3 (3.60-5.2); RDW 14.1 % (11.6-15.6); WHITE BLOOD COUNT 5.5 K/mm3 (4.0-10.0)
[2018-11-23 14:45] LABS: ANISOCYTOSIS 0; HELMET CELLS 0; HOWELL-JOLLY BODIES 0; MACROCYTOSIS 0; OVALOCYTE 0; PLATELET ESTIMATE NORMAL; ROULEAU 0; SICKELED CELLS 0; TARGET CELLS 0; TEAR DROP CELLS 0; TOXIC GRANULATION 0
[2018-11-23 14:49] LABS: ALBUMIN 3.4 g/dl (3.4-5.0); ALK PHOS 52 U/L (45-117); ANION GAP 4 MMOL/L (8-16); BILIRUBIN,TOTAL 0.3 mg/dL (0.2-1); BLOOD UREA NITROGEN 19 mg/dL (7-18); CALCIUM 8.8 mg/dL (8.5-10.1); CHLORIDE 104 mmol/L (98-107); CO2 31 mmol/L (21-32); CREATININE 0.7 mg/dL (0.55-1.3); GLUCOSE,RANDOM 111 mg/dL (74-106); POTASSIUM 4.8 mmol/L (3.5-5.1); SGOT/AST 94 U/L (15-37); SGPT/ALT 149 U/L (13-61); SODIUM 138 mmol/L (136-145); TOT PROT 6.4 g/dl (6.4-8.2)
[2018-11-23 17:45] VITALS: BP 139/72; PULSE 72
--- NOTE | 2018-11-23 18:24 | PDOC ---
Documentation entered by Lupe Mccullough SCRIBE, acting as scribe for Cora Lam MD. Cora Lam MD: This documentation has been prepared by the Sadia lópez Adrianna, SCRIBE, under my direction and personally reviewed by me in its entirety. I confirm that the documentation accurately reflects all work, treatment, procedures, and medical decision making performed by me. Attending Attestation - Resident Resident Name: RadhikaYesenia - ED Attending Attestation I have performed the following: I have examined & evaluated the patient, The case was reviewed & discussed with the resident, I agree w/resident's findings & plan, Exceptions are as noted - HPI HPI: 47 year old female, with a significant PMH of polysubstance use (intranasal cocaine, nicotine, THC, alcohol), bipolar, and SBO, who is presenting via EMS from [facility] rehab complaining of chest pain. Patient was recently seen in the ED -11/20), and was diagnosed with pneumonia and influenza. Patient is currently at [facility] rehab, detoxing from EtOH, THC, and cocaine abuse. She complains of primarily intermittent left-sided chest pain, which is sharp in nature and radiates down the LUE and into the right-side chest. Pain is rated as a 7/10, and is exacerbated with inspiration. She denies any family pertinent family history of cardiac disorders, no history of DVT or PE, or any cardiac testing. Patient does endorse abdominal cramping which she believes us secondary to menstrual spotting (was supposed to have IUD removed 3 years ago, but has not). Patient does not complain of chest pain while in the ED> The patient denies shortness of breath, headache and dizziness. Denies fever, chills, nausea, vomit, diarrhea and constipation. Denies dysuria, frequency, urgency and hematuria. Allergies: NKA Past surgical history: Bowel obstruction surgery Family history: No relevant history Social history: Current smoker ( PPD since age 13), substance abuse ( intranasal cocaine, nicotine, THC, alcohol) PCP: Dr. Joaquin Albrecht 11/23/18 17:09 - Physicial Exam PE: 11/23/18 19:15 awake alert lungs clear bilaterally heart rrr no mrg abd soft nt nd. ext wwp no edema. no calf tenderness. symmetric pulses. skin warm and dry. nuero alert orientedx 3. no rerpoducible chest wall tenderness. - Medical Decision Making 11/23/18 18:20 47 yo F h/o cocaine, etoh and thc abuse at [facility], here with intermittent sharp chest pain starting today at 11 am. recently had flu and pna one week ago. pain is sharp, rad to leftarm, somewhat pleuritic. noh/o pe or dvt. no leg swelling. no travel. has been at [facility] since 11/10 one exam pt normal heart and lung exam. no chest wall tenderness. ext wwp zayra winsome. differential diagnosis : pericarditis ( h/o recent influenzae), acs, pe ( recent hospitalization currently in detox), gerd, pna, plan cxr labs ekg cta r/ o pe, focused eD tte r/o pericardial effusion. labs unremarkable., trop negative x 2. ekg unremarkable. pt chest pain free currently. cta pending. focused ED TTE indication chest pain r/o pericardial effusion four views of heart obtained ( parasternal long and short, apical and subxiphoid ) no pericardial effuison good contractility, no rv dilation or strain. impression: normal tte, cta 11/23/18 18:26 EXAM#: TYPE/EXAM: RESULT: [id number] RAD/CHEST X-RAY PORTABLE* Chest: Chest pain Since 11/14/2018, again noted is the prominent heart, unfolded aorta, prominent sharla and some atelectatic changes in both lung caballero. Since 11/14/2018, the previously noted atelectatic changes have diminished. Correlation recommended. Reported By: De Dover MD 11/23/18 17:13 EXAM#: TYPE/EXAM: RESULT: [id number] CT/CHEST CTA Chest CT angiography Clinical information: evaluate for pulmonary embolism Impression: No CT evidence of pulmonary embolism. Bilateral lower lobe discoid atelectasis. Mildly prominent bilateral axillary lymph nodes are seen. Mildly prominent right hilar lymph nodes are noted. Correlate clinically and consider close follow-up CT. Reported By: Jose Erickson MD 11/23/18 18:32 11/23/18 18:40 Heart Score/ECG Review #1 General ECG Interpretation: Sinus Rhythm, Normal Rate (65), Normal Intervals, No acute ischemic changes (TWI III only)
== END 2018-11-23 19:20 | disposition short-term general hospital (02) ==
LOC: JER 12:35
PROC: B246ZZZ Ultrasonography of Right and Left Heart (ICD-10-PCS; principal; 2018-11-23)
DX: R07.1 Chest pain on breathing (principal); K21.9 Gastro-esophageal reflux disease without esophagitis; F10.20 Alcohol dependence, uncomplicated; F14.10 Cocaine abuse, uncomplicated; F19.20 Other psychoactive substance dependence, uncomplicated; F31.9 Bipolar disorder, unspecified; F41.9 Anxiety disorder, unspecified; F17.210 Nicotine dependence, cigarettes, uncomplicated; Z87.01 Personal history of pneumonia (recurrent)
CPT/HCPCS: 36415; 71045-TC-FY; 71275-TC; 80053; 82550; 84484; 84703; 85025; 99282-25

== ENCOUNTER 2022-11-17 22:22 | Inpatient (IN) | payer OTHER ==
[2022-11-17 22:45] VITALS: BMI 35.6
[2022-11-17] MEDS ORDERED: NICOTINE POLACRILEX 2 MG GUM BUC PRN (23:42)
[2022-11-17] MEDS ORDERED: P-EPHED 60MG/TRIPROLIDI 2.5MG TABLET PO PRN (23:42)
[2022-11-17] MEDS ORDERED: NICOTINE 10 MG CARTRIDGE (INHALER) IH PRN (23:42)
[2022-11-17] MEDS ORDERED: traZODone HCL 100 MG TABLET (FP) PO PRN (23:42)
[2022-11-17] MEDS ORDERED: QUEtiapine FUMARATE 100 MG TABLET (FP) PO PRN (23:42)
[2022-11-17] MEDS ORDERED: BENZOCAINE/MENTHOL (CHLORASEPTIC ) LOZENGE MM PRN (23:42)
[2022-11-17] MEDS ORDERED: LOPERAMIDE HCL 2 MG CAPSULE PO PRN (23:42)
[2022-11-17] MEDS ORDERED: BENZONATATE 200 MG CAPSULE PO PRN (23:42)
[2022-11-17] MEDS ORDERED: ONDANSETRON *ODT* 4 MG TABLET SL PRN (23:42)
[2022-11-17] MEDS ORDERED: POLYETHYLENE GLYCOL (HEALTHYLAX) 3350 17 GM PACKET PO PRN (23:42)
[2022-11-17] MEDS ORDERED: DICYCLOMINE HCL 10 MG CAPSULE PO PRN (23:42)
[2022-11-17] MEDS ORDERED: MAGNESIUM HYDROX 2400MG/30ML ORAL SUSPENSION 30 ML CUP PO PRN (23:42)
[2022-11-17] MEDS ORDERED: guaiFENesin 600 MG TABLET.ER (FP) PO PRN (23:42)
[2022-11-17] MEDS ORDERED: IBUPROFEN 400 MG TABLET (FP) PO PRN (23:42)
[2022-11-17] MEDS ORDERED: BENZOCAINE 20 % GEL TUBE MM PRN (23:46)
[2022-11-18] MEDS: METHOCARBAMOL 500 MG TABLET PO PRN ×3 (01:46→17:42)
[2022-11-18] MEDS: hydrOXYzine PAMOATE 25 MG CAPSULE (FP) PO PRN ×3 (01:46→20:42)
[2022-11-18] MEDS: METHYL SALICYLATE/MENTHOL OINT 30 GM TUBE TP SCH ×3 (01:50→22:03)
[2022-11-18] MEDS: BISMUTH SUBSALICYLATE 524 MG/30 ML PO PRN ×2 (05:13→10:26)
[2022-11-18] MEDS ORDERED: chlordiazePOXIDE HCL 25 MG CAPSULE PO PRN (10:00)
[2022-11-18] MEDS ORDERED: ALBUTEROL SO4 HFA INHALER IH PRN (10:00)
[2022-11-18] MEDS: chlordiazePOXIDE HCL 25 MG CAPSULE PO SCH ×3 (10:24→22:04)
[2022-11-18] MEDS: PRENATAL VITAMINS W/ FOLIC ACID TABLET (FP) PO SCH (10:24)
[2022-11-18] MEDS: IBUPROFEN 600 MG TABLET (FP) PO PRN (10:24)
[2022-11-18] MEDS ORDERED: QUEtiapine FUMARATE 50 MG TABLET PO ONE (11:09)
[2022-11-18] MEDS ORDERED: TOPIRAMATE 25 MG TABLET PO ONE (11:10)
[2022-11-18 11:22] LABS: HEMATOCRIT 36.1 % (32.4-45.2); HEMOGLOBIN 12.7 GM/dL (10.7-15.3); MCH 30.9 pg (25.7-33.7); MCHC 35.2 g/dl (32.0-36.0); MEAN CELL VOLUME 87.7 fl (80-96); MEAN PLT VOLUME 8.2 fl (7.5-11.1); PLATELET COUNT 305 10^3/uL (134-434); RBC 4.11 M/mm3 (3.60-5.2); RDW 13.7 % (11.6-15.6); WHITE BLOOD COUNT 7.1 K/mm3 (4.0-10.0)
[2022-11-18] MEDS ORDERED: QUEtiapine FUMARATE 100 MG TABLET (FP) PO ONE (11:27)
[2022-11-18 11:55] LABS: BLOOD UREA NITROGEN 16.9 mg/dL (7-18)
[2022-11-18 11:57] LABS: ALBUMIN 3.6 g/dl (3.4-5.0); BILIRUBIN,TOTAL 0.3 mg/dL (0.2-1); CALCIUM 9.2 mg/dL (8.5-10.1)
[2022-11-18 11:59] LABS: CREATININE 0.8 mg/dL (0.55-1.3); TOT PROT 6.9 g/dl (6.4-8.2)
[2022-11-18] MEDS ORDERED: MIRTAZAPINE 30 MG TABLET PO SCH (22:00)
[2022-11-18] MEDS ORDERED: MELATONIN 5 MG TABLETS PO SCH (22:00)
[2022-11-18] MEDS ORDERED: QUEtiapine FUMARATE 200 MG TABLET PO SCH (22:00)
[2022-11-18] MEDS: TOPIRAMATE 25 MG TABLET PO SCH (22:03)
[2022-11-18] MEDS: MAG HYDROX/AL HYDROX/SIMETH 30 ML UNIT-DOSE CUP PO PRN (22:03)
[2022-11-18] MEDS: THIAMINE HCL 100 MG TABLET (FP) PO SCH (22:04)
[2022-11-18] MEDS: MELATONIN 5 MG TABLETS PO PRN (22:04)
[2022-11-19] MEDS: chlordiazePOXIDE HCL 25 MG CAPSULE PO SCH ×4 (05:45→22:04)
[2022-11-19] MEDS: QUEtiapine FUMARATE 100 MG TABLET (FP) PO SCH (10:05)
[2022-11-19] MEDS: METHYL SALICYLATE/MENTHOL OINT 30 GM TUBE TP SCH ×2 (10:05→22:04)
[2022-11-19] MEDS: PRENATAL VITAMINS W/ FOLIC ACID TABLET (FP) PO SCH (10:06)
[2022-11-19] MEDS: TOPIRAMATE 25 MG TABLET PO SCH ×2 (10:06→22:04)
[2022-11-19] MEDS: METHOCARBAMOL 500 MG TABLET PO PRN ×2 (10:08→17:36)
[2022-11-19] MEDS: hydrOXYzine PAMOATE 25 MG CAPSULE (FP) PO PRN (13:40)
[2022-11-19] MEDS: MAG HYDROX/AL HYDROX/SIMETH 30 ML UNIT-DOSE CUP PO PRN ×2 (15:30→21:16)
[2022-11-19] MEDS: THIAMINE HCL 100 MG TABLET (FP) PO SCH (22:04)
[2022-11-19] MEDS: MELATONIN 5 MG TABLETS PO PRN (22:04)
[2022-11-20] MEDS: chlordiazePOXIDE HCL 25 MG CAPSULE PO SCH ×4 (05:33→22:29)
[2022-11-20] MEDS: PRENATAL VITAMINS W/ FOLIC ACID TABLET (FP) PO SCH (10:21)
[2022-11-20] MEDS: TOPIRAMATE 25 MG TABLET PO SCH ×2 (10:21→22:28)
[2022-11-20] MEDS: METHYL SALICYLATE/MENTHOL OINT 30 GM TUBE TP SCH ×2 (10:21→22:29)
[2022-11-20] MEDS: QUEtiapine FUMARATE 100 MG TABLET (FP) PO SCH (10:21)
[2022-11-20] MEDS: hydrOXYzine PAMOATE 25 MG CAPSULE (FP) PO PRN ×2 (12:46→22:31)
[2022-11-20] MEDS: IBUPROFEN 600 MG TABLET (FP) PO PRN (17:34)
[2022-11-20] MEDS: METHOCARBAMOL 500 MG TABLET PO PRN (17:34)
[2022-11-20] MEDS: MELATONIN 5 MG TABLETS PO PRN (22:27)
[2022-11-20] MEDS: THIAMINE HCL 100 MG TABLET (FP) PO SCH (22:29)
[2022-11-20] MEDS: ACETAMINOPHEN 325 MG TABLET (FP) PO PRN (22:30)
[2022-11-21] MEDS ORDERED: chlordiazePOXIDE HCL 10 MG CAPSULE PO PRN
[2022-11-21] MEDS: chlordiazePOXIDE HCL 10 MG CAPSULE PO SCH ×4 (05:21→22:41)
[2022-11-21] MEDS: hydrOXYzine PAMOATE 25 MG CAPSULE (FP) PO PRN ×2 (09:35→17:34)
[2022-11-21] MEDS: METHOCARBAMOL 500 MG TABLET PO PRN ×2 (09:35→22:41)
[2022-11-21] MEDS: METHYL SALICYLATE/MENTHOL OINT 30 GM TUBE TP SCH ×2 (10:08→22:45)
[2022-11-21] MEDS: TOPIRAMATE 25 MG TABLET PO SCH ×2 (10:08→22:40)
[2022-11-21] MEDS: QUEtiapine FUMARATE 100 MG TABLET (FP) PO SCH (10:08)
[2022-11-21] MEDS: MAG HYDROX/AL HYDROX/SIMETH 30 ML UNIT-DOSE CUP PO PRN (10:08)
[2022-11-21] MEDS: PRENATAL VITAMINS W/ FOLIC ACID TABLET (FP) PO SCH (10:08)
[2022-11-21] MEDS: THIAMINE HCL 100 MG TABLET (FP) PO SCH (22:40)
[2022-11-22] MEDS: chlordiazePOXIDE HCL 10 MG CAPSULE PO SCH ×2 (05:36→17:12)
[2022-11-22] MEDS: METHOCARBAMOL 500 MG TABLET PO PRN ×2 (06:00→15:21)
[2022-11-22] MEDS: hydrOXYzine PAMOATE 25 MG CAPSULE (FP) PO PRN ×2 (06:01→15:20)
[2022-11-22] MEDS: METHYL SALICYLATE/MENTHOL OINT 30 GM TUBE TP SCH ×2 (10:09→22:43)
[2022-11-22] MEDS: PRENATAL VITAMINS W/ FOLIC ACID TABLET (FP) PO SCH (10:10)
[2022-11-22] MEDS: TOPIRAMATE 25 MG TABLET PO SCH ×2 (10:10→22:32)
[2022-11-22] MEDS: QUEtiapine FUMARATE 100 MG TABLET (FP) PO SCH (10:10)
[2022-11-22] MEDS: ACETAMINOPHEN 325 MG TABLET (FP) PO PRN (10:11)
[2022-11-22] MEDS: IBUPROFEN 600 MG TABLET (FP) PO PRN (17:13)
[2022-11-22] MEDS ORDERED: cloNIDine HCL 0.1 MG TABLET PO ONE (17:37)
[2022-11-22] MEDS: THIAMINE HCL 100 MG TABLET (FP) PO SCH (22:32)
[2022-11-23] MEDS ORDERED: chlordiazePOXIDE HCL 10 MG CAPSULE PO ONE (05:00)
[2022-11-23 09:46] VITALS: PULSE 90; RESP 16
[2022-11-23] MEDS: METHOCARBAMOL 500 MG TABLET PO PRN (10:18)
[2022-11-23] MEDS: hydrOXYzine PAMOATE 25 MG CAPSULE (FP) PO PRN (10:18)
[2022-11-23] MEDS: QUEtiapine FUMARATE 100 MG TABLET (FP) PO SCH (10:18)
[2022-11-23] MEDS: PRENATAL VITAMINS W/ FOLIC ACID TABLET (FP) PO SCH (10:19)
[2022-11-23] MEDS: METHYL SALICYLATE/MENTHOL OINT 30 GM TUBE TP SCH (10:19)
[2022-11-23] MEDS: TOPIRAMATE 25 MG TABLET PO SCH (10:19)
[2022-11-23 14:10] VITALS: BP 152/94; TEMP 96.9
[2022-11-23] MEDS ORDERED: amLODIPine BESYLATE 5 MG TABLET (FP) PO SCH (14:45)
== END 2022-11-23 15:25 | disposition other institution (70) | DRG 774 ==
LOC: YASAS 22:22 → Y3N 11-18 01:10 → UNDOADMIN 11-18 01:10
PROVIDERS: ADMIT Allergy & Immunology; ATTEND Surgery
PROC: HZ2ZZZZ Detoxification Services for Substance Abuse Treatment (ICD-10-PCS; principal; 2022-11-18)
DX: F10.230 Alcohol dependence with withdrawal, uncomplicated (principal); F14.20 Cocaine dependence, uncomplicated; F12.20 Cannabis dependence, uncomplicated; F17.210 Nicotine dependence, cigarettes, uncomplicated; F31.9 Bipolar disorder, unspecified; F19.282 Other psychoactive substance dependence with psychoactive substance-induced sleep disorder; M17.0 Bilateral primary osteoarthritis of knee; M54.50 Low back pain, unspecified; G89.29 Other chronic pain
CPT/HCPCS: 36415; 80053; 81025; 85027; 86780; 93005; 93010; C9803-CS; U0003; U0005

== ENCOUNTER 2022-11-23 15:30 | Inpatient (IN) | payer OTHER ==
[2022-11-23 16:30] VITALS: RESP 18
[2022-11-23] MEDS ORDERED: IBUPROFEN 400 MG TABLET (FP) PO PRN (18:12)
[2022-11-23] MEDS ORDERED: MAG HYDROX/AL HYDROX/SIMETH 30 ML UNIT-DOSE CUP PO PRN (18:12)
[2022-11-23] MEDS ORDERED: IBUPROFEN 600 MG TABLET (FP) PO PRN (18:12)
[2022-11-23] MEDS ORDERED: guaiFENesin 600 MG TABLET.ER (FP) PO PRN (18:12)
[2022-11-23] MEDS ORDERED: NALOXONE HCL (KLOXXADO) 8 MG SPRAY NS PRN (18:12)
[2022-11-23] MEDS ORDERED: NICOTINE 10 MG CARTRIDGE (INHALER) IH PRN (18:12)
[2022-11-23] MEDS ORDERED: MAGNESIUM HYDROX 2400MG/30ML ORAL SUSPENSION 30 ML CUP PO PRN (18:12)
[2022-11-23] MEDS ORDERED: BENZONATATE 200 MG CAPSULE PO PRN (18:12)
[2022-11-23] MEDS ORDERED: AMMONIUM LACTATE 12% LOTION 225 GM BOTTLE TP PRN (18:12)
[2022-11-23] MEDS ORDERED: NALOXONE HCL 0.4 MG/ML VIAL IM PRN (18:12)
[2022-11-23] MEDS ORDERED: LOPERAMIDE HCL 2 MG CAPSULE PO PRN (18:12)
[2022-11-23] MEDS ORDERED: BENZOCAINE/MENTHOL (CHLORASEPTIC ) LOZENGE MM PRN (18:12)
[2022-11-23] MEDS ORDERED: COLLOIDAL OATMEAL 1 BAR EACH TP PRN (18:12)
[2022-11-23] MEDS ORDERED: ACETAMINOPHEN 325 MG TABLET (FP) PO PRN (18:12)
[2022-11-23] MEDS ORDERED: POLYETHYLENE GLYCOL (HEALTHYLAX) 3350 17 GM PACKET PO PRN (18:12)
[2022-11-23] MEDS ORDERED: ALBUTEROL SO4 HFA INHALER IH PRN (18:14)
[2022-11-23] MEDS: TOPIRAMATE 25 MG TABLET PO SCH (21:34)
[2022-11-23] MEDS: THIAMINE HCL 100 MG TABLET (FP) PO SCH (21:34)
[2022-11-23] MEDS: MELATONIN 5 MG TABLETS PO SCH (21:35)
[2022-11-23] MEDS ORDERED: QUEtiapine FUMARATE 200 MG TABLET PO ONE (22:00)
[2022-11-24] MEDS: METHOCARBAMOL 500 MG TABLET PO PRN ×2 (00:54→10:00)
[2022-11-24] MEDS: TOPIRAMATE 25 MG TABLET PO SCH ×2 (09:58→21:16)
[2022-11-24] MEDS ORDERED: PRENATAL VITAMINS W/ FOLIC ACID TABLET (FP) PO SCH (10:00)
[2022-11-24] MEDS: hydrOXYzine PAMOATE 25 MG CAPSULE (FP) PO PRN (10:02)
[2022-11-24 11:17] LABS: URINE APPEARANCE CLEAR; URINE BILIRUBIN NEGATIVE (NEGATIVE); URINE COLOR YELLOW; URINE GLUCOSE (UA) NEGATIVE (NEGATIVE); URINE KETONE NEGATIVE (NEGATIVE); URINE LEUK ESTERASE NEGATIVE (NEGATIVE); URINE NITRITE NEGATIVE (NEGATIVE); URINE PROTEIN NEGATIVE (NEGATIVE); URINE UROBILINOGEN 0.2 mg/dL (0.2-1.0)
[2022-11-24] MEDS ORDERED: BENZOCAINE 20 % GEL TUBE MM PRN (12:26)
[2022-11-24] MEDS ORDERED: METHYL SALICYLATE/MENTHOL OINT 30 GM TUBE TP PRN (12:42)
[2022-11-24] MEDS ORDERED: QUEtiapine FUMARATE 50 MG TABLET PO STA (13:53)
[2022-11-24] MEDS: THIAMINE HCL 100 MG TABLET (FP) PO SCH (21:16)
[2022-11-24] MEDS: MELATONIN 5 MG TABLETS PO SCH (21:17)
[2022-11-25 07:24] VITALS: BP 152/89; PULSE 79; TEMP 96.6
[2022-11-25] MEDS: hydrOXYzine PAMOATE 25 MG CAPSULE (FP) PO PRN (07:52)
[2022-11-25] MEDS ORDERED: QUEtiapine FUMARATE 100 MG TABLET (FP) PO SCH (10:00)
== END 2022-11-25 08:15 | disposition home or self-care (01) | DRG 772 ==
LOC: YASAS 15:30 → Y5N 15:31
PROVIDERS: ADMIT Allergy & Immunology; ATTEND Psychiatry & Neurology Pain Medicine
PROC: HZ42ZZZ Group Counseling for Substance Abuse Treatment, Cognitive-Behavioral (ICD-10-PCS; principal; 2022-11-23)
DX: F10.20 Alcohol dependence, uncomplicated (principal); F14.20 Cocaine dependence, uncomplicated; F17.210 Nicotine dependence, cigarettes, uncomplicated; F31.9 Bipolar disorder, unspecified; F19.282 Other psychoactive substance dependence with psychoactive substance-induced sleep disorder; G47.00 Insomnia, unspecified; K21.9 Gastro-esophageal reflux disease without esophagitis; M17.0 Bilateral primary osteoarthritis of knee; Z99.89 Dependence on other enabling machines and devices
CPT/HCPCS: 36415; 81003; 86803

== ENCOUNTER 2024-02-01 12:39 | Inpatient (IN) | payer OTHER ==
[2024-02-01 14:07] VITALS: BMI 32.9
[2024-02-01] MEDS ORDERED: P-EPHED 60MG/TRIPROLIDI 2.5MG TABLET PO PRN (15:37)
[2024-02-01] MEDS ORDERED: BENZOCAINE/MENTHOL (CHLORASEPTIC ) LOZENGE MM PRN (15:37)
[2024-02-01] MEDS ORDERED: ACETAMINOPHEN 325 MG TABLET (FP) PO PRN (15:37)
[2024-02-01] MEDS ORDERED: MAG HYDROX/AL HYDROX/SIMETH 30 ML UNIT-DOSE CUP PO PRN (15:37)
[2024-02-01] MEDS ORDERED: IBUPROFEN 400 MG TABLET (FP) PO PRN (15:37)
[2024-02-01] MEDS ORDERED: DICYCLOMINE HCL 10 MG CAPSULE PO PRN (15:37)
[2024-02-01] MEDS ORDERED: NICOTINE POLACRILEX 2 MG GUM BUC PRN (15:37)
[2024-02-01] MEDS ORDERED: NICOTINE POLACRILEX 2 MG LOZENGE BC PRN (15:37)
[2024-02-01] MEDS ORDERED: guaiFENesin 600 MG TABLET.ER (FP) PO PRN (15:37)
[2024-02-01] MEDS ORDERED: BENZONATATE 200 MG CAPSULE PO PRN (15:37)
[2024-02-01] MEDS ORDERED: MAGNESIUM HYDROX 2400MG/30ML ORAL SUSPENSION 30 ML CUP PO PRN (15:37)
[2024-02-01] MEDS ORDERED: LOPERAMIDE HCL 2 MG CAPSULE PO PRN (15:37)
[2024-02-01] MEDS ORDERED: POLYETHYLENE GLYCOL (HEALTHYLAX) 3350 17 GM PACKET PO PRN (15:37)
[2024-02-01] MEDS ORDERED: BISMUTH SUBSALICYLATE 262 MG/15 ML BTL PO PRN (15:37)
[2024-02-01] MEDS: ONDANSETRON *ODT* 4 MG TABLET SL PRN (17:15)
[2024-02-01] MEDS: MELATONIN 5 MG TABLETS PO SCH (22:19)
[2024-02-01] MEDS: hydrOXYzine PAMOATE 25 MG CAPSULE (FP) PO PRN (22:19)
[2024-02-01] MEDS: THIAMINE 100 MG TABLET PO SCH (22:19)
[2024-02-01] MEDS: METHOCARBAMOL 500 MG TABLET PO PRN (22:19)
[2024-02-02] MEDS: PRENATAL VITAMINS W/ FOLIC ACID TABLET (FP) PO SCH (10:31)
[2024-02-02] MEDS ORDERED: diazePAM 5 MG TABLET PO PRN (10:37)
[2024-02-02] MEDS: diazePAM 5 MG TABLET PO SCH (11:06)
[2024-02-02] MEDS ORDERED: ALBUTEROL SO4 HFA INHALER IH PRN (13:01)
[2024-02-02] MEDS: cloNIDine HCL 0.1 MG TABLET PO PRN (13:44)
[2024-02-02 14:37] LABS: HEMOGLOBIN 11.9 GM/dL (10.7-15.3); MCH 31.2 pg (25.7-33.7); MCHC 35.2 g/dl (32.0-36.0); MEAN CELL VOLUME 88.9 fl (80-96); PLATELET COUNT 210 10^3/uL (134-434); RBC 3.82 M/mm3 (3.60-5.2); RDW 13.5 % (11.6-15.6); WHITE BLOOD COUNT 5.5 K/mm3 (4.0-10.0)
[2024-02-02 14:55] LABS: CHLORIDE 111 mmol/L (98-107); POTASSIUM 4.3 mmol/L (3.5-5.1); SODIUM 142 mmol/L (136-145)
[2024-02-02 15:01] LABS: CALCIUM 8.8 mg/dL (8.5-10.1)
[2024-02-02 15:02] LABS: ALBUMIN 3.2 g/dl (3.4-5.0); ANION GAP 5 mmol/L (4-13); BLOOD UREA NITROGEN 19.4 mg/dL (7-18); CO2 26 mmol/L (21-32)
[2024-02-02 15:03] LABS: SGPT/ALT 13 U/L (13-61)
[2024-02-02 15:04] LABS: BILIRUBIN,TOTAL 0.3 mg/dL (0.2-1)
[2024-02-02 15:05] LABS: SGOT/AST 13 U/L (15-37); TOT PROT 5.8 g/dl (6.4-8.2)
[2024-02-02 15:06] LABS: ALK PHOS 59 U/L (45-117)
[2024-02-02 15:22] LABS: GLUCOSE,RANDOM 102 mg/dL (74-106)
[2024-02-02] MEDS: QUEtiapine FUMARATE 100 MG TABLET (FP) PO SCH (22:21)
[2024-02-03] MEDS: MINERAL OIL/PETROLAT/WATER TOPICAL CREAM 113 GM JAR TP SCH (11:05)
[2024-02-03] MEDS: IBUPROFEN 600 MG TABLET (FP) PO PRN (19:52)
[2024-02-04] MEDS: diazePAM 5 MG TABLET PO SCH (05:49)
[2024-02-05] MEDS: diazePAM 5 MG TABLET PO SCH (05:24)
[2024-02-05] MEDS: amLODIPine BESYLATE 10 MG TABLET (FP) PO SCH (17:45)
[2024-02-05] MEDS: cloNIDine HCL 0.1 MG TABLET PO ONE (21:45)
[2024-02-05] MEDS: QUEtiapine FUMARATE 100 MG TABLET (FP) PO SCH (21:45)
[2024-02-06] MEDS: diazePAM 5 MG TABLET PO ONE (05:24)
[2024-02-06 09:19] VITALS: BP 135/85; PULSE 60; RESP 16; TEMP 97.1
== END 2024-02-06 11:13 | disposition home or self-care (01) | DRG 774 ==
LOC: YASAS 12:39 → Y3N 16:43
PROVIDERS: ADMIT Allergy & Immunology; ATTEND Surgery
PROC: HZ2ZZZZ Detoxification Services for Substance Abuse Treatment (ICD-10-PCS; principal; 2024-02-01)
DX: F10.230 Alcohol dependence with withdrawal, uncomplicated (principal); F14.20 Cocaine dependence, uncomplicated; F12.20 Cannabis dependence, uncomplicated; F17.210 Nicotine dependence, cigarettes, uncomplicated; F31.9 Bipolar disorder, unspecified; I10 Essential (primary) hypertension
CPT/HCPCS: 36415; 80053; 80305; 80307; 81025; 85027; 86780; 93005; 93010; Q0162